=== PATIENT | female | born 1955 | race Caucasian/White ===

== ENCOUNTER → 2024-01-07 | Outpatient (CLI) | payer MEDICARE ==
--- NOTE | 2024-01-07 14:45 | CT ---
EXAMINATION TYPE: CT left knee - [facility] Protocol DATE OF EXAM: 01/07/2024 COMPARISON: None HISTORY: left [facility] knee CT DLP: 536 mGycm Automated exposure control for dose reduction was used. Contrast: None Technique: [facility] presurgical planning of the left knee. Images were obtained in the axial plane at 2 m m thick sections through the hip and ankle and 1 mm thick sections through the knee. Reconstructed im ages in the coronal and sagittal plane are reviewed. FINDINGS: Hip: Femoral head articulates with the acetabulum. There is some mild diffuse joint space narrowing p resent. Note is made of right hip joint space narrowing. No acute fractures are evident. Knee: Medial lateral tibial plateau and femoral condylar spurring is present. There is loss the media l compartment joint space. No joint effusion is evident. Ankle: Ankle mortise is intact. No acute fractures evident. IMPRESSION: 1. CT for [facility] knee presurgical planning.
== END | disposition home or self-care (01) ==
LOC: RADCTMAIN 13:36
PROVIDERS: ATTEND Orthopaedic Surgery
DX: Z01.818 Encounter for other preprocedural examination (principal); M17.12 Unilateral primary osteoarthritis, left knee; M21.162 Varus deformity, not elsewhere classified, left knee; F17.200 Nicotine dependence, unspecified, uncomplicated

== ENCOUNTER 2024-01-25 14:40 | Inpatient (IN) | payer MEDICARE ==
--- NOTE | 2024-01-25 16:17 | ED ---
General Adult HPI - General Chief complaint: Dizziness Stated complaint: Dizziness Time Seen by Provider: 01/25/24 15:15 Source: patient, family, RN notes reviewed Mode of arrival: EMS Limitations: no limitations - History of Present Illness Initial comments: Patient is a pleasant 68-year-old female presenting to the emergency department with concerns for dizziness. Onset of symptoms was 3 to 4 days ago. Patient has dizziness described as a spinning sensation. Patient states this is only when she gets up. Patient does not have symptoms when she lies down. Patient at one point had minimal associated nausea. No history of similar symptoms prev iously - Related Data Home Medications Medication Instructions Recorded Confirmed Aspirin EC [Ecotrin Low Dose] 81 mg PO DAILY 01/25/24 01/25/24 Atorvastatin [Lipitor] 40 mg PO DAILY 01/25/24 01/25/24 lisinopriL [Prinivil] 10 mg PO DAILY 01/25/24 01/25/24 Allergies Allergy/AdvReac Type Severity Reaction Status Date / Time No Known Allergies Allergy Verified 01/25/24 14:53 Review of Systems ROS Statement: Those systems with pertinent positive or pertinent negative responses have been documented in the HPI. ROS Other: All systems not noted in ROS Statement are negative. Constitutional: Denies: fever Eyes: Denies: eye pain ENT: Denies: ear pain Respiratory: Denies: cough, dyspnea Cardiovascular: Denies: chest pain Endocrine: Denies: fatigue Gastrointestinal: Denies: abdominal pain Musculoskeletal: Denies: back pain Neurological: Reports: vertigo. Denies: headache, weakness, numbness, paresthesias, confusion Past Medical History Past Medical History: Hyperlipidemia, Hypertension Additional Past Surgical History / Comment(s): left knee replacement Past Psychological History: No Psychological Hx Reported Smoking Status: Former smoker Past Alcohol Use History: None Reported Past Drug Use History: None Reported General Exam Limitations: no limitations General appearance: alert, in no apparent distress Head exam: Present: normocephalic Eye exam: Present: normal appearance, PERRL, EOMI ENT exam: Present: normal oropharynx Neck exam: Present: normal inspection Respiratory exam: Present: normal lung sounds bilaterally Cardiovascular Exam: Present: regular rate, normal rhythm GI/Abdominal exam: Present: soft. Absent: tenderness Extremities exam: Present: normal inspection, other (Bandage anterior knee from r recent surgery). Absent: pedal edema, calf tenderness Neurological exam: Present: alert, oriented X3, CN II-XII intact. 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 sent in by a medical professional or institution ([facility], SENIOR LEAD JAVA DEVELOPER, urgent care, hospital, or correction...) When possible be specific @ -No Did you speak to anyone other than the patient for history (EMS, parent, family, police, friend...)? What history was obtained from this source @ -Daughter is present and helps provide history including when procedure was done Did you review nursing and triage notes (agree or disagree)? Why? @ -I reviewed and agree with nursing and triage notes Were old charts reviewed (outside hosp., previous admission, EMS record, old EKG, old radiological studies, urgent care reports/EKG's, correction records)? Report findings @ -No old charts were reviewed Differential Diagnosis (chest pain, altered mental status, abdominal pain women, abdominal pain men, vaginal bleeding, weakness, fever, dyspnea, syncope, headache, dizziness, GI bleed, back pain, seizure, CVA, palpatations, mental health, musculoskeletal)? @ -Differential Dizziness: Benign paroxysmal positional Vertigo, Menieres disease, otitis media, acoustic neuroma, vertebrobasilar insufficiency, cerebellar stroke, encephalitis, hypovolemic, arrhythmia, coronary artery syndrome, anemia, this is not meant to be an all-inclusive list EKG interpreted by me (3pts min.). @ -As above X-rays interpreted by me (1pt min.). @ -None done CT interpreted by me (1pt min.). @ -CT scan of the brain does not reveal acute intracranial abnormality U/S interpreted by me (1pt. min.). @ -None done What testing was considered but not performed or refused? (CT, X-rays, U/S, labs)? Why? @ -Chest x-ray and blood cultures and urinalysis ordered What meds were considered but not given or refused? Why? @ -None Did you discuss the management of the patient with other professionals (professionals i.e. , PA, SENIOR LEAD JAVA DEVELOPER, lab, RT, psych nurse, outreach and education social worker, clean room technician, teacher, security control room officer, showcase maker)? Give summary @ -Case was discussed in detail with Dr. Hilario who will admit covering hospital call. Was smoking cessation discussed for >3mins.? @ -No Was critical care preformed (if so, how long)? @ -31 minutes critical care time Were there social determinants of health that impacted care today? How? (Homelessness, low income, unemployed, alcoholism, drug addiction, transportation, low edu. Level, literacy, decrease access to med. care, alf, rehab)? @ -No Was there de-escalation of care discussed even if they declined (Discuss DNR or withdrawal of care, Hospice)? DNR status @ -No What co-morbidities impacted this encounter? (DM, HTN, Smoking, COPD, CAD, Cancer, CVA, ARF, Chemo, Hep., AIDS, mental health diagnosis, sleep apnea, morbid obesity)? @ -None Was patient admitted / discharged? Hospital course, mention meds given and route, prescriptions, significant lab abnormalities, going to OR and other pertinent info. @ -Patient reevaluated and feeling somewhat better. Patient presents clinically with routine vertigo symptoms. Patient has no known history of significant previous disease. Patient appears to have acute kidney injury. Leukocytosis unclear etiology. There is concern for possible sepsis diagnosed at 1831. Blood culture lactic acid and IV antibiotics have all been ordered. Chest x-ray will be added. Renal ultrasound will be added. Consult will be pl aced with nephrology and cardiology Undiagnosed new problem with uncertain prognosis? @ -No Drug Therapy requiring intensive monitoring for toxicity (Heparin, Nitro, Insulin, Cardizem)? @ -No Were any procedures done? @ -No Diagnosis/symptom? @ -Dizziness, acute kidney injury, leukocytosis Acute, or Chronic, or Acute on Chronic? @ -Acute, acute, acute Uncomplicated (without systemic symptoms) or Complicated (systemic symptoms)? @ -Default Side effects of treatment? @ -No Exacerbation, Progression, or Severe Exacerbation? @ -No Poses a threat to life or bodily function? How? (Chest pain, [place], [place], pneumonia, PE, COPD, DKA, ARF, appy, cholecystitis, CVA, Diverticulitis, Homicidal, Suici lois, threat to staff... and all critical care pts) @ -Potential threat to renal function and cardiac function among others. - Lab Data Result diagrams: 01/25/24 16:32 01/25/24 16:32 Lab Results 01/25/24 01/25/24 01/25/24 Range/Units 16:32 16:32 16:32 WBC 47.4 H (3.8-10.6) k/uL RBC 3.51 L (3.80-5.40) m/uL Hgb 10.5 L (11.4-16.0) gm/dL Hct 33.5 L (34.0-46.0) % MCV 95.7 (80.0-100.0) fL MCH 29.9 (25.0-35.0) pg MCHC 31.3 (31.0-37.0) g/dL RDW 13.4 (11.5-15.5) % Plt Count 167 (150-450) k/uL MPV 8.7 Neutrophils % (Manual) 84 % Band Neuts % (Manual) 8 % Lymphocytes % (Manual) 4 % Monocytes % (Manual) 3 % Metamyelocytes % 2 % Myelocytes % 1 % Neutrophils # (Manual) 43.60 H (1.3-7.7) k/uL Lymphocytes # (Manual) 1.90 (1.0-4.8) k/uL Monocytes # (Manual) 1.42 H (0-1.0) k/uL Metamyelocytes # (Man) 0.95 H (0) k/uL Myelocytes # (Manual) 0.47 H (0) k/uL Nucleated RBCs 0 (0-0) /100 WBC Manual Slide Review Performed PT 10.9 (10.0-12.5) sec INR 1.0 (<1.2) APTT 28.8 (22.0-30.0) sec Sodium 133 L (137-145) mmol/L Potassium 3.7 (3.5-5.1) mmol/L Chloride 103 (98-107) mmol/L Carbon Dioxide 17 L (22-30) mmol/L Anion Gap 13 mmol/L BUN 56 H (7-17) mg/dL Creatinine 3.24 H (0.52-1.04) mg/dL Est GFR (CKD-EPI)AfAm 16 (>60 ml/min/1.73 sqM) Est GFR (CKD-EPI)NonAf 14 (>60 ml/min/1.73 sqM) Glucose 150 H (74-99) mg/dL Plasma Lactic Acid Endy (0.7-2.0) mmol/L Calcium 7.0 L (8.4-10.2) mg/dL Magnesium 1.7 (1.6-2.3) mg/dL Total Bilirubin 1.7 H (0.2-1.3) mg/dL AST 50 H (14-36) U/L ALT 54 H (4-34) U/L Alkaline Phosphatase 225 H (38-126) U/L Troponin I (0.000-0.034) ng/mL Total Protein 5.3 L (6.3-8.2) g/dL Albumin 2.7 L (3.5-5.0) g/dL 01/25/24 01/25/24 Range/Units 16:32 16:32 WBC (3.8-10.6) k/uL RBC (3.80-5.40) m/uL Hgb (11.4-16.0) gm/dL Hct (34.0-46.0) % MCV (80.0-100.0) fL MCH (25.0-35.0) pg MCHC (31.0-37.0) g/dL RDW (11.5-15.5) % Plt Count (150-450) k/uL MPV Neutrophils % (Manual) % Band Neuts % (Manual) % Lymphocytes % (Manual) % Monocytes % (Manual) % Metamyelocytes % % Myelocytes % % Neutrophils # (Manual) (1.3-7.7) k/uL Lymphocytes # (Manual) (1.0-4.8) k/uL Monocytes # (Manual) (0-1.0) k/uL Metamyelocytes # (Man) (0) k/uL Myelocytes # (Manual) (0) k/uL Nucleated RBCs (0-0) /100 WBC Manual Slide Review PT (10.0-12.5) sec INR (<1.2) APTT (22.0-30.0) sec Sodium (137-145) mmol/L Potassium (3.5-5.1) mmol/L Chloride (98-107) mmol/L Carbon Dioxide (22-30) mmol/L Anion Gap mmol/L BUN (7-17) mg/dL Creatinine (0.52-1.04) mg/dL Est GFR (CKD-EPI)AfAm (>60 ml/min/1.73 sqM) Est GFR (CKD-EPI)NonAf (>60 ml/min/1.73 sqM) Glucose (74-99) mg/dL Plasma Lactic Acid Endy 2.7 H* (0.7-2.0) mmol/L Calcium (8.4-10.2) mg/dL Magnesium (1.6-2.3) mg/dL Total Bilirubin (0.2-1.3) mg/dL AST (14-36) U/L ALT (4-34) U/L Alkaline Phosphatase (38-126) U/L Troponin I 0.252 H* (0.000-0.034) ng/mL Total Protein (6.3-8.2) g/dL Albumin (3.5-5.0) g/dL Critical Care Time Critical Care Time: Yes Disposition Clinical Impression: Acute kidney injury, Leukocytosis, Dizziness Disposition: ADMITTED IP TO THIS [facility] Condition: Serious Is patient prescribed a controlled substance at d/c from ED?: No Referrals: JimChucky durham DO [Primary Care Provider] - 1-2 days Time of Disposition: 18:32
[2024-01-25] MEDS: MECLIZINE 12.5 MG TAB PO STA (16:38)
[2024-01-25] MEDS: METOCLOPRAMIDE 5 MG/ML 2 ML VIAL IVP STA (16:38)
[2024-01-25 16:47] LABS: HCT 33.5 % (34.0-46.0); HGB 10.5 gm/dL (11.4-16.0); MCH 29.9 pg (25.0-35.0); MCHC 31.3 g/dL (31.0-37.0); MCV 95.7 fL (80.0-100.0); Mean Platelet Volume 8.7; Platelet Count 167 k/uL (150-450); RBC 3.51 m/uL (3.80-5.40); RDW 13.4 % (11.5-15.5); WBC 47.4 k/uL (3.8-10.6)
[2024-01-25 16:57] LABS: ALT 54 U/L (4-34); AST 50 U/L (14-36); African American GFR (CKD) 16 (>60 ml/min/1.73 sqM); Albumin 2.7 g/dL (3.5-5.0); Alkaline Phosphatase 225 U/L (38-126); Anion Gap 13 mmol/L; Blood Urea Nitrogen 56 mg/dL (7-17); Carbon Dioxide 17 mmol/L (22-30); Chloride 103 mmol/L (98-107); Glucose 150 mg/dL (74-99); Magnesium 1.7 mg/dL (1.6-2.3); Non-African American GFR(CKD) 14 (>60 ml/min/1.73 sqM); Potassium 3.7 mmol/L (3.5-5.1); Sodium 133 mmol/L (137-145); Total Bilirubin 1.7 mg/dL (0.2-1.3); Total Protein 5.3 g/dL (6.3-8.2)
[2024-01-25 17:01] LABS: Partial Thromboplastin Time 28.8 sec (22.0-30.0); Prothrombin Time 10.9 sec (10.0-12.5)
--- NOTE | 2024-01-25 17:20 | CT ---
EXAMINATION TYPE: CT brain wo con DATE OF EXAM: 01/25/2024 COMPARISON: None HISTORY: dizziness CT DLP: 1107 mGycm Automated exposure control for dose reduction was used. Findings: The ventricles, basal cisterns and sulci over the convexities are within normal limits and there is n o mass effect or shift of midline structures. No abnormal density is seen throughout the brain parenchyma and there is no acute intra or extra-axia l hemorrhage. The posterior fossa including the brainstem, fourth ventricle and cerebellar pontine angles appear no rmal. Intraorbital contents appear normal and symmetric. There are air-fluid levels in the bilateral maxillary sinuses consistent with acute sinusitis. Scattered inflammatory changes in the ethmoid air cells as well. There are chronic inflammatory rea es in the sphenoid sinus. The mastoid air cells are well aerated. The calvarium is intact. IMPRESSION: 1. No acute bleed or mass effect. 2. Acute sinusitis involving the maxillary sinuses
[2024-01-25 18:06] LABS: Band Neutrophils % 8 %; Metamyelocytes # (M) 0.95 k/uL (0); Metamyelocytes % 2 %; Monocytes # (M) 1.42 k/uL (0-1.0); Myelocytes # (M) 0.47 k/uL (0); Myelocytes % 1 %; Neutrophils % (M) 84 %; Nucleated Red Blood Cells 0 /100 WBC (0-0); Total Cells Counted 200
[2024-01-25] MEDS ORDERED: NALOXONE 0.4 MG/ML 1 ML VIAL IV PRN (18:33)
[2024-01-25] MEDS: SODIUM CHLORIDE 0.9% 1,000 ML IV STA (18:44)
[2024-01-25] MEDS: SODIUM CHLORIDE 0.9% 1,000 ML IV SCH (18:45)
[2024-01-25] MEDS: ASPIRIN 81 MG PO SCH (18:47)
--- NOTE | 2024-01-26 03:17 | P.HPIM ---
History of Present Illness H&P Date: 01/25/24 Chief Complaint: Dizziness 68-year-old female with hypertension Patient coming in with 3 to 4-day history of positional dizziness, she would feel dizzy with room spinning every time she gets up otherwise if she is laying down or sitting down in the chair she would feel fine this has been progressive over the past couple days she adds that she has been feeling extra thirsty but has decreased p.o. intake. She reports that about 3 weeks ago she had left knee surgery, left total knee arthroplasty. But otherwise she denies any other medical issues she reports that she quit smoking 3 weeks ago denies any illicit drugs or heavy alcohol Overall patient seems to have poor insight over her overall medical conditions and is a very poor historian She has features suggestive of wasting or protein calorie malnutrition with hollow temples and guttering of the dorsum of her bilateral hands however she claims that she always looks like that since she was a little kept. She denies any head injury denies any falls denies any nausea vomiting denies any chest pain trouble breathing denies any abdominal pain denies any changes in bowel or urinary habit denies any GI bleeding denies any fevers or chills review of systems Pertinent positives as noted in HPI. All other systems were reviewed and are negative on exam Constitutional: No acute distress, Eyes: Anicteric sclerae, moist conjunctiva, Pupils equal round reactive to light ENMT: NC/AT Oropharynx clear, no erythema, or exudates Neck: Supple, no masses, or JVD No carotid bruits No thyromegaly Lungs: Clear to auscultation Clear to percussion Normal respiratory effort, no accessory muscle use Cardiovascular: Heart regular in rate and rhythm, No murmurs, gallops, or rubs No peripheral edema Abdominal: Soft Nontender, no guarding, rebound or rigidity Abdomen moving with respiration Normoactive bowel sounds Skin: Bilateral temporal wasting and scarring over dorsum of bilateral hands Extremities: No digital cyanosis No clubbing Pedal pulses intact and symmetrical Radial pulses intact and symmetrical No calf tenderness Psychiatric: Alert and oriented to person, place and time Appropriate affect fair judgement Neuro Muscles Strength 5/5 in all 4 extremities Sensation to light touch grossly present throughout Cranial nerves II-XII grossly intact Past Medical History Past Medical History: Hyperlipidemia, Hypertension Additional Past Surgical History / Comment(s): left knee replacement Past Psychological History: No Psychological Hx Reported Smoking Status: Former smoker Past Alcohol Use History: None Reported Past Drug Use History: None Reported Medications and Allergies Home Medications Medication Instructions Recorded Confirmed Type Aspirin EC [Ecotrin Low Dose] 81 mg PO DAILY 01/25/24 01/25/24 History Atorvastatin [Lipitor] 40 mg PO DAILY 01/25/24 01/25/24 History lisinopriL [Prinivil] 10 mg PO DAILY 01/25/24 01/25/24 History Allergies Allergy/AdvReac Type Severity Reaction Status Date / Time No Known Allergies Allergy Verified 01/25/24 14:53 Physical Exam Vitals: Vital Signs Temp Pulse Pulse Resp BP BP Pulse Ox 01/25/24 18:19 92 18 99/67 95 01/25/24 15:49 104 H 97/65 01/25/24 15:46 98 96/72 01/25/24 15:43 102 H 100/63 01/25/24 15:38 101 H 18 97/61 97 01/25/24 14:48 98.4 F 101 H 18 100/62 94 L Intake and Output 01/25/24 01/25/24 01/26/24 14:59 22:59 06:59 Other: Weight 60.781 kg Results CBC & Chem 7: 01/25/24 16:32 01/25/24 16:32 Labs: Abnormal Lab Results - Last 24 Hours (Table) 01/25/24 01/25/24 01/25/24 Range/Units 16:32 16:32 16:32 WBC 47.4 H (3.8-10.6) k/uL RBC 3.51 L (3.80-5.40) m/uL Hgb 10.5 L (11.4-16.0) gm/dL Hct 33.5 L (34.0-46.0) % Neutrophils # (Manual) 43.60 H (1.3-7.7) k/uL Monocytes # (Manual) 1.42 H (0-1.0) k/uL Metamyelocytes # (Man) 0.95 H (0) k/uL Myelocytes # (Manual) 0.47 H (0) k/uL Sodium 133 L (137-145) mmol/L Carbon Dioxide 17 L (22-30) mmol/L BUN 56 H (7-17) mg/dL Creatinine 3.24 H (0.52-1.04) mg/dL Glucose 150 H (74-99) mg/dL Plasma Lactic Acid Endy 2.7 H* (0.7-2.0) mmol/L Calcium 7.0 L (8.4-10.2) mg/dL Total Bilirubin 1.7 H (0.2-1.3) mg/dL AST 50 H (14-36) U/L ALT 54 H (4-34) U/L Alkaline Phosphatase 225 H (38-126) U/L Troponin I (0.000-0.034) ng/mL Total Protein 5.3 L (6.3-8.2) g/dL Albumin 2.7 L (3.5-5.0) g/dL 01/25/24 01/25/24 Range/Units 16:32 19:16 WBC (3.8-10.6) k/uL RBC (3.80-5.40) m/uL Hgb (11.4-16.0) gm/dL Hct (34.0-46.0) % Neutrophils # (Manual) (1.3-7.7) k/uL Monocytes # (Manual) (0-1.0) k/uL Metamyelocytes # (Man) (0) k/uL Myelocytes # (Manual) (0) k/uL Sodium (137-145) mmol/L Carbon Dioxide (22-30) mmol/L BUN (7-17) mg/dL Creatinine (0.52-1.04) mg/dL Glucose (74-99) mg/dL Plasma Lactic Acid Endy (0.7-2.0) mmol/L Calcium (8.4-10.2) mg/dL Total Bilirubin (0.2-1.3) mg/dL AST (14-36) U/L ALT (4-34) U/L Alkaline Phosphatase (38-126) U/L Troponin I 0.252 H* 0.233 H* (0.000-0.034) ng/mL Total Protein (6.3-8.2) g/dL Albumin (3.5-5.0) g/dL Assessment and Plan Assessment: 68-year-old female with hypertension coming in due to postural dizziness reports no other associated symptoms she also admits to decreased p.o. intake I discussed case with ED doctor and accepted the admission for dehydration, acute kidney injury, positional dizziness and leukocytosis to rule out underlying malignancy versus infectious process with anticipated length of stay less than 2 midnights Postural dizziness Orthostatic vital signs IV fluid hydration with normal saline 100 cc/h 2 L bolus normal saline Fall precautions Brain CT no acute intracranial pathology EKG normal sinus rhythm Significant leukocytosis No identifiable source of infection Chest x-ray no acute cardiopulmonary process Check urine analysis Patient was given Rocephin in the ED Follow-up blood cultures Lactic acidosis 2.7 upon follow-up 1.5 Hematology consult rule out leukemia Acute kidney injury most likely secondary to prerenal ATN Avoid nephrotoxic meds Hold lisinopril Sodium 133 potassium 3.7 BUN 56 creatinine 3.24 Nephrology consult Monitor urine output Aggressive IV fluid hydration as suggested above Elevated liver enzymes Check abdominal ultrasound Bilirubin 1.7 AST 50 ALT 54 Alk phos 225 Hold statin Elevated troponin 0.252 follow-up 0.233 Follow-up cardiology recommendations Patient denies any chest pain Continue with aspirin 81 mg p.o. daily Full code DVT prophylaxis heparin subcu 3 times daily
[2024-01-26 03:26] LABS: HCT 31.4 % (34.0-46.0); HGB 10.5 gm/dL (11.4-16.0); MCH 30.9 pg (25.0-35.0); MCHC 33.5 g/dL (31.0-37.0); MCV 92.2 fL (80.0-100.0); Mean Platelet Volume 9.3; Platelet Count 155 k/uL (150-450); RDW 13.7 % (11.5-15.5); WBC 42.1 k/uL (3.8-10.6)
[2024-01-26 03:52] LABS: ALT 50 U/L (4-34); AST 45 U/L (14-36); African American GFR (CKD) 15 (>60 ml/min/1.73 sqM); Albumin 2.6 g/dL (3.5-5.0); Alkaline Phosphatase 198 U/L (38-126); Amylase 43 U/L (30-110); Anion Gap 12 mmol/L; Blood Urea Nitrogen 63 mg/dL (7-17); Calcium 6.7 mg/dL (8.4-10.2); Carbon Dioxide 17 mmol/L (22-30); Chloride 106 mmol/L (98-107); Glucose 89 mg/dL (74-99); Lipase 61 U/L (23-300); Magnesium 1.9 mg/dL (1.6-2.3); Non-African American GFR(CKD) 13 (>60 ml/min/1.73 sqM); Potassium 3.6 mmol/L (3.5-5.1); Sodium 135 mmol/L (137-145); Total Protein 5.2 g/dL (6.3-8.2)
[2024-01-26 04:13] LABS: Band Neutrophils % 38 %; Eosinophils # (M) 0.42 k/uL (0-0.7); Lymphocytes # (M) 0.84 k/uL (1.0-4.8); Metamyelocytes # (M) 0.84 k/uL (0); Metamyelocytes % 2 %; Monocytes # (M) 0.42 k/uL (0-1.0); Neutrophils % (M) 56 %; Nucleated Red Blood Cells 0 /100 WBC (0-0); Total Cells Counted 200
[2024-01-26 04:14] LABS: Toxic Granulation Present
[2024-01-26] MEDS: SODIUM CHLORIDE 0.9% 2,000 ML IV ONE (05:12)
[2024-01-26] MEDS: LORazepam 2 MG/ML INJ IV STA (05:26)
--- NOTE | 2024-01-26 06:57 | US ---
EXAMINATION TYPE: US kidneys/renal and bladder DATE OF EXAM: 01/25/2024 COMPARISON: NONE CLINICAL INDICATION: Female, 68 years old with history of sary; Abnormal labs. Patient states she jus t voided. EXAM MEASUREMENTS: Right Kidney: 10.5 x 5.9 x 5.7 cm Left Kidney: 10.0 x 5.5 x 5.7 cm Right Kidney: Moderate hydronephrosis with trace debris suggested. Left Kidney: Mild to moderate hydronephrosis. Cystic lesions seen with largest lower lateral = 1.6 x 1.3 x 1.1 cm No definite shadowing renal calculi are identified. Bladder: Not well visualized, nondistended IMPRESSION: 1. Moderate right hydronephrosis with trace debris suggested. 2. Mild to moderate left hydronephrosis. 3. Left renal cysts, largest 1.6 cm. 4. Bladder not well visualized, nondistended.
--- NOTE | 2024-01-26 07:02 | XR ---
EXAMINATION TYPE: XR chest 2V DATE OF EXAM: 01/25/2024 7:34 PM CLINICAL INDICATION:Female, 68 years old with history of Leukocytosis; [facility] COMPARISON: None TECHNIQUE: XR chest 2V. Frontal and lateral views of the chest.. FINDINGS: Lines/Tubes/Devices: EKG leads and other extrinsic densities overlie the chest. No indwelling lines are seen. Heart/mediastinum: Heart appears enlarged. Aorta appears partially calcified and mildly tortuous. Pulmonary vascularity: Central vascular congestion with engorgement of the vasculature and indistinct ness of the vessels suggesting pulmonary edema. Lungs/Pleura: No focal consolidation or pneumothorax. Small pleural effusions may be present. Musculoskeletal: No acute osseous abnormality demonstrated in the limits of the exam. Other findings: None. IMPRESSION: Cardiomegaly with congestion and edema, possible small pleural effusions. Correlate clinically for mo derate CHF.
[2024-01-26] MEDS: HEPARIN SODIUM,PORCINE 5,000 UNIT/ML 1 ML VIAL SQ SCH (08:30)
--- NOTE | 2024-01-26 09:48 | P.CRDCN ---
History of Present Illness History of present illness: HISTORY OF PRESENT ILLNESS: This is a 68-year-old female with a past medical history significant for hypertension and hyperlipidemia. Patient follows in the office with Dr. Tate. We have been asked to see the patient in consultation for elevated troponins. Patient examined at the bedside in the emergency room. Patient states she presented to the hospital with a chief complaint of dizziness. Patient states that she felt like her room was spinning. She states that she was so dizzy she was unable to get out of bed. Patient denies having any chest pain or pressure. She denies any shortness of breath. Patient was found to have significant leukocytosis with a white count in the 40s. Patient denies any history of cancer. Patient was also found to be in acute renal failure with a creatinine of 2.34. DIAGNOSTICS: - EKG reveals sinus mechanism with no signs of acute ischemia - Chest xray cardiomegaly with congestion and edema, possible small pleural effusions. Correlate clinically for moderate CHF Ultrasound kidneys and bladder: Moderate right hydronephrosis with trace debris suggested, mild to moderate left hydronephrosis, left renal cyst largest 1.6 cm and bladder not well-visualized nondistended. CT brain: Negative for acute bleed or mass effect. Acute sinusitis involving the maxillary sinuses. - Laboratory data: WBC 42.5. Hemoglobin 10.5. Platelet count 155. Sodium 135. Potassium 3.6. BUN 63. Creatinine 3.47. Lactic acid 2.7. Bilirubin 1.0. AST 45. ALT 50. Alkaline phosphatase 198. Troponin 0.252. 0.233. 0.161. - Current home cardiac medications include lisinopril 10 mg daily, atorvastatin 40 mg daily, and aspirin 81 mg daily. -Patient underwent Lexiscan stress test in the office on 12/28/2023 which was negative for ischemia. LV function with ejection fraction estimated at 62%. REVIEW OF SYSTEMS: At the time of my exam: CONSTITUTIONAL: Denies fever or chills. HEENT: Denies blurred vision, vision changes, or eye pain. Denies hemoptysis CARDIOVASCULAR: Denies chest pain. Denies orthopnea. Denies PND. Denies palpitations RESPIRATORY: Denies shortness of breath. GASTROINTESTINAL: Denies abdominal pain. Denies nausea or vomiting. HEMATOLOGIC: Denies bleeding disorders. GENITOURINARY: Denies any blood in urine. SKIN: Denies pruitis. Denies rash. PHYSICAL EXAM: VITAL SIGNS: Reviewed. GENERAL: Well-developed in no acute distress. HEENT: Head is normocephalic. Pupils are equal, round. Sclerae anicteric. Mucous membranes of the mouth are moist. Neck supple. No JVD or thyromegaly LUNGS: Respirations even and unlabored. Lungs essentially clear to auscultation bilaterally. HEART: Regular rate and rhythm. S1 and S2 heard. ABDOMEN: Soft. Nondistended. Nontender. EXTREMITIES: Normal range of motion. No clubbing or cyanosis. Peripheral pulses intact. Trace bilateral lower extremity edema NEUROLOGIC: Awake and alert. Oriented x 3. ASSESSMENT: Dizziness Acute renal failure Abnormal troponins, flat, not suggestive of acute coronary syndrome, likely secondary to acute renal failure Significant leukocytosis, rule out underlying malignancy Minimally elevated LFTs Moderate right hydronephrosis Mild to moderate left hydronephrosis Left renal cyst, largest 1.6 cm Hypertension Hyperlipidemia Former nicotine dependence PLAN: An acute coronary event has been ruled out Resume aspirin Resume Lipitor. Patient with very minimally elevated LFTs. Continue to monitor and discontinue statin therapy if LFTs worsen. Hold lisinopril secondary to acute renal failure Obtain 2D echo to assess cardiac structure and function Hematology has been consulted for significant leukocytosis Nephrology has been consulted for acute renal failure Further recommendations pending patient course Nurse practitioner note has been reviewed by physician. Signing provider agrees with the documented findings, assessment, and plan of care documented by G[employer] WE[employer] DRILLING MANAGER as a scribe. Past Medical History Past Medical History: Hyperlipidemia, Hypertension Additional Past Surgical History / Comment(s): left knee replacement Past Psychological History: No Psychological Hx Reported Smoking Status: Former smoker Past Alcohol Use History: None Reported Past Drug Use History: None Reported Medications and Allergies Home Medications Medication Instructions Recorded Confirmed Type Aspirin EC [Ecotrin Low Dose] 81 mg PO DAILY 01/25/24 01/25/24 History Atorvastatin [Lipitor] 40 mg PO DAILY 01/25/24 01/25/24 History lisinopriL [Prinivil] 10 mg PO DAILY 01/25/24 01/25/24 History Allergies Allergy/AdvReac Type Severity Reaction Status Date / Time No Known Allergies Allergy Verified 01/25/24 14:53 Physical Exam Vitals: Vital Signs Temp Pulse Pulse Resp BP BP Pulse Ox 01/26/24 06:26 112 H 18 107/69 97 01/26/24 05:14 140 H 30 H 99 01/26/24 04:56 97.8 F 105 H 18 123/77 99 01/26/24 03:30 75 16 117/75 96 01/26/24 01:30 90 18 118/71 96 01/25/24 18:19 92 18 99/67 95 01/25/24 15:49 104 H 97/65 01/25/24 15:46 98 96/72 01/25/24 15:43 102 H 100/63 01/25/24 15:38 101 H 18 97/61 97 01/25/24 14:48 98.4 F 101 H 18 100/62 94 L Results 01/26/24 03:06 01/26/24 03:06 Cardiac Enzymes 01/25/24 01/25/24 01/25/24 Range/Units 16:32 16:32 19:16 AST 50 H (14-36) U/L Troponin I 0.252 H* 0.233 H* (0.000-0.034) ng/mL 01/26/24 01/26/24 Range/Units 03:06 03:06 AST 45 H (14-36) U/L Troponin I 0.161 H* (0.000-0.034) ng/mL Coagulation 01/25/24 Range/Units 16:32 PT 10.9 (10.0-12.5) sec APTT 28.8 (22.0-30.0) sec CBC 01/25/24 01/26/24 Range/Units 16:32 03:06 WBC 47.4 H 42.1 H (3.8-10.6) k/uL RBC 3.51 L 3.40 L (3.80-5.40) m/uL Hgb 10.5 L 10.5 L (11.4-16.0) gm/dL Hct 33.5 L 31.4 L (34.0-46.0) % Plt Count 167 155 (150-450) k/uL Comprehensive Metabolic Panel 01/25/24 01/26/24 Range/Units 16:32 03:06 Sodium 133 L 135 L (137-145) mmol/L Potassium 3.7 3.6 (3.5-5.1) mmol/L Chloride 103 106 (98-107) mmol/L Carbon Dioxide 17 L 17 L (22-30) mmol/L BUN 56 H 63 H (7-17) mg/dL Creatinine 3.24 H 3.47 H (0.52-1.04) mg/dL Glucose 150 H 89 (74-99) mg/dL Calcium 7.0 L 6.7 L (8.4-10.2) mg/dL AST 50 H 45 H (14-36) U/L ALT 54 H 50 H (4-34) U/L Alkaline Phosphatase 225 H 198 H (38-126) U/L Total Protein 5.3 L 5.2 L (6.3-8.2) g/dL Albumin 2.7 L 2.6 L (3.5-5.0) g/dL Current Medications Generic Name Dose Route Start Last Admin Trade Name Freq PRN Reason Stop Dose Admin Aspirin 81 mg 01/25/24 18:45 01/25/24 18:47 Aspirin 81 Mg PO 81 mg DAILY [facility] Administration Heparin Sodium (Porcine) 5,000 unit 01/26/24 08:00 Heparin Sodium,Porcine 5,000 Unit/Ml 1 Ml Vial SQ Q8HR TAMMIE Ceftriaxone Sodium 2 gm/ 50 mls @ 100 mls/hr 01/26/24 09:00 Sodium Chloride IVPB Q24HR [facility] Protocol Sodium Chloride 1,000 mls @ 75 mls/hr 01/25/24 18:45 01/25/24 18:45 Saline 0.9% IV Not Given .[id number] TAMMIE Naloxone HCl 0.2 mg 01/25/24 18:33 Naloxone 0.4 Mg/Ml 1 Ml Vial IV Q2M PRN Opioid Reversal 01/26/24 03:06 01/26/24 03:06
[2024-01-26] MEDS: ACETAMINOPHEN TAB 325 MG TAB PO PRN (10:19)
[2024-01-26] MEDS ORDERED: IOPAMIDOL CONTRAST (ORAL USE) VIAL PO PRN (10:51)
--- NOTE | 2024-01-26 11:06 | US ---
EXAMINATION TYPE: US gallbladder DATE OF EXAM: 01/26/2024 COMPARISON: 01/25/2024 CLINICAL INDICATION: Female, 68 years old with history of transaminitis, add liver; transaminitis TECHNIQUE: Multiple sonographic images of the right upper quadrant are obtained. FINDINGS: EXAM MEASUREMENTS: Liver Length: 14.8 cm Gallbladder Wall: 0.2 cm CBD: 0.4 cm Right Kidney: 10.9 x 5.8 x 5.5 cm PEANUT CLEANER NOTES:*Limitations due to overlying bowel gas Pancreas: wnl Liver: visualized portions appear wnl Gallbladder: no evidence of stones Evidence for sonographic Alexander's sign: no CBD: wnl Right Kidney: moderate hydronephrosis with possible debris as on prior exam IMPRESSION: 1. Ongoing moderate right hydronephrosis. Some debris or other filling defect within one of the minor calyces redemonstrated. 2. No gallstones or biliary ductal dilatation.
--- NOTE | 2024-01-26 11:42 | CA ---
Transthoracic Echo Report Name: Anel Dutton Age: 68 Gender: F : 1955 Exam Date: 01/26/2024 10:00 Exam Location: [facility] [place] [facility] Ht (in): 60 Wt (lb): 134 Ordering Physician: Marvin Mcmullen DO Attending/Referring Phys: Automation Technologist Destiny Aguillon RDCS Procedure CPT: Indications: elevated troponin Cardiac Hx: Technical Quality: Good Contrast 1: Total Dose (mL): Contrast 2: Total Dose (mL): MEASUREMENTS (Male / Female) Normal Values 2D ECHO LV Diastolic Diameter PLAX 4.2 cm 4.2 - 5.9 / 3.9 - 5.3 cm LV Systolic Diameter PLAX 2.8 cm IVS Diastolic Thickness 1.2 cm 0.6 - 1.0 / 0.6 - 0.9 cm LVPW Diastolic Thickness 1.3 cm 0.6 - 1.0 / 0.6 - 0.9 cm LV Relative Wall Thickness 0.6 RV Internal Dim ED PLAX 2.7 cm LVOT Diameter 2.0 cm LA Volume 41.5 cm??? 18 - 58 / 22 - 52 cm??? LA Volume Index 25.6 cm???/m??? 16 - 28 cm???/m??? DOPPLER AV Peak Velocity 159.0 cm/s AV Peak Gradient 10.1 mmHg AV Mean Velocity 107.5 cm/s AV Mean Gradient 5.3 mmHg AV Velocity Time Integral 23.5 cm LVOT Peak Velocity 118.8 cm/s LVOT Peak Gradient 5.6 mmHg LVOT Velocity Time Integral 17.9 cm LVOT Stroke Volume 54.1 cm??? LVOT Stroke Volume Index 34.4 ml/m??? LVOT Cardiac Index 3339.2 cm???/min???m??? AV Area Cont Eq vti 2.3 cm??? AV Area Cont Eq pk 2.3 cm??? MV Area PHT 6.9 cm??? Mitral E Point Velocity 92.9 cm/s Mitral A Point Velocity 107.6 cm/s Mitral E to A Ratio 0.9 MV Deceleration Time 109.5 ms PV Peak Velocity 76.5 cm/s PV Peak Gradient 2.3 mmHg FINDINGS Left Ventricle Left ventricular ejection fraction is estimated at 60-65 %. Mildly increased septal wall thickness. Moderately increased posterior wall thickness. Left ventricular cavity size normal. No obvious regional wall motion abnormalities. Right Ventricle Normal right ventricular size and function. Unable to estimate the right ventricular systolic pressure. Right Atrium Normal right atrial size. Left Atrium Normal left atrial size. Mitral Valve Mitral valve thickened. No evidence for mitral valve prolapse. No mitral stenosis. Trace mitral regurgitation. Aortic Valve Trileaflet aortic valve. No aortic valve stenosis. Trace aortic regurgitation. Tricuspid Valve Structurally normal tricuspid valve. No tricuspid stenosis. Trace tricuspid regurgitation. Pulmonic Valve Structurally normal pulmonic valve. No pulmonic stenosis. Trace pulmonic regurgitation. Pericardium No pericardial effusion. Aorta Normal size aortic root and proximal ascending aorta. CONCLUSIONS Normal LV function Previewed by: Dr. Dewey Tate MD (Electronically Signed) Final Date: 26 January 2024 11:41
--- NOTE | 2024-01-26 12:37 | P.PN ---
Subjective Progress Note Date: 01/26/24 68 year old F with PMH of hypertension presents to the ED for postural lightheadedness. She reports poor appetite and watery diarrhea for the past week. She reports nausea but no vomiting. She reports a dry cough. She underwent left total knee arthropasty 3 weeks ago and recovery has been going well. She reports 15 year PPD smoking history, recently quit 3 weeks ago. In the ED she underwent extensive evaluation. BP 100/62 HR 101 RR 18 T 98.4F 94% on RA. CBC, CMP, Coag panel done significant for WBC 47.4 Hg 10.5 Hct 33.5, Na 133, bicarb 17, BUN 56, Cr 3.24, glu 150, Ca 7.0, T. Bili 1.7, AST 50, ALT 54, alk phos 225, total protein 5.3, alb 2.7. Lactic acid 2.7. Mag 1.7. EKG sinus rhythm with no ST elevation. Brain CT no acute bleed or mass effect, acute sinusitis. Patient was given 2L NS bolus and admitted for treatment of dehydration, LUCA and workup of leukocytosis. 01/25 Patient was seen and examined. She continues to experience watery diarrhea that has been ongoing for the past week. She got pre and post operative antibotics during her knee arthroplasty but non since then. She reports a dry cough. She reports a history of bladder prolapse. Tmax 101F. She is tachycardic with HR in the 90-100s. Renal US moderate right and mild-mod left hydronephrosis with left renal cysts. CXR done this morning shows cardiomegaly with pulmonary vascular congestion. Cardiology consulted, ACS ruled out, troponin elevation due to aute renal failure, hold Lisinopril, obtain Echo, resume ASA and Lipitor. Echocardiogram shows EF 60-65% with moderate posterior wall thickness, trace MR/AR/TR/WV. GB US shows no gallstones of ductal dilatation. CBC WBC 42.1, Hg 10.5, Hct 31.4. CMP Na 135, bicarb 17, BUN 63, 3.27, Ca 6.7, AST 45, ALT 50, alk phos 198, total protein 5.2, alb 2.6. General: non toxic, no distress, appears at stated age Derm: warm, dry Head: atraumatic, normocephalic, symmetric Eyes: EOMI, no lid lag, anicteric sclera Mouth: no lip lesion, mucus membranes moist Cardiovascular: S1S2 tachy, no murmur Lungs: Clear to auscultation BS bilateral, no rhonchi, no rales , no accessory muscle use Ext: no gross muscle atrophy, trace bilateral lower extremity edema, no contractures Neuro: no focal neuro deficits Psych: Alert, oriented, appropriate affect Based on my assessment of this patient, this patient meets a high complexity level of care. Sepsis unknown etiology: Patient meets sepsis criteria with leukocytosis, tachycardia, fever. Reports significant diarrhea. Currently on Rocephin 2g IV QD. Check COVID, RSV, Flu. CT AP ordered with oral contrast. Check C. difficle. Check UA with reflux to UCx. BCx ordered. Telemetry monitoring. NS at 75 cc/hr. Postural lightheadedness: Likely due to severe dehydration. Check Orthostats. Echo as above. IV hydration as above. Fall precautions. PT and OT consult. Acute kidney injury: Renal US shows hydronephrosis. Hold Lisinopril. Insert Guzman catheter. IV hydration as above. Consult urology. Consult nephrology. Metabolic acidosis: Lactic acid initially elevated. Due to LUCA. IV hydration as above. Significant leukocytosis: Concerns for malignancy. Oncology consulted. Transaminitis: GB US negative for gallstone of biliary duct dilation. Lipitor restarted by Cardiology. Check acute hep panel. Troponin elevation: Flat. Likely due to renal dysfunction. Echo as above. ASA 81 mg PO QD. Lipitor 40 mg PO QD. Cardiology on board. Normocytic anemia: Iron studies, B12, Folate ordered. Resolved: Lactic acidosis CODE STATUS: FULL CODE DVT Prophylaxis: Lovenox GI Prophylaxis: Designated medical POA if patient is not able to make medical decisions for themselves: I have reviewed the following workers compensation consultant notes: Cardiology note. I have reviewed the results of the following tests: CBC. CMP. GB US. Renal US. Echo. CXR. I have ordered the following tests: Acute hep panel. CT AP. C. difficile. COVID, RSV, Flu. UA with UCx. BCx. I have discussed the care of this patient with the following independent historian: LAURI. I have independently interpreted the following test below: I have discussed the management of this patient with the following physician: Objective - Vital Signs Vital signs: Vital Signs Temp 98.3 F 01/26/24 11:50 Pulse 95 01/26/24 11:50 Resp 16 01/26/24 11:50 BP 129/85 01/26/24 11:50 Pulse Ox 95 01/26/24 11:50 FiO2 Intake & Output 01/25/24 01/26/24 01/26/24 18:59 06:59 18:59 Weight 60.781 kg - Labs CBC & Chem 7: 01/26/24 03:06 01/26/24 03:06 Labs: Abnormal Lab Results - Last 24 Hours (Table) 01/25/24 01/25/24 01/25/24 Range/Units 16:32 16:32 16:32 WBC 47.4 H (3.8-10.6) k/uL RBC 3.51 L (3.80-5.40) m/uL Hgb 10.5 L (11.4-16.0) gm/dL Hct 33.5 L (34.0-46.0) % Neutrophils # (Manual) 43.60 H (1.3-7.7) k/uL Lymphocytes # (Manual) (1.0-4.8) k/uL Monocytes # (Manual) 1.42 H (0-1.0) k/uL Metamyelocytes # (Man) 0.95 H (0) k/uL Myelocytes # (Manual) 0.47 H (0) k/uL Sodium 133 L (137-145) mmol/L Carbon Dioxide 17 L (22-30) mmol/L BUN 56 H (7-17) mg/dL Creatinine 3.24 H (0.52-1.04) mg/dL Glucose 150 H (74-99) mg/dL Plasma Lactic Acid Endy 2.7 H* (0.7-2.0) mmol/L Calcium 7.0 L (8.4-10.2) mg/dL Total Bilirubin 1.7 H (0.2-1.3) mg/dL AST 50 H (14-36) U/L ALT 54 H (4-34) U/L Alkaline Phosphatase 225 H (38-126) U/L Troponin I (0.000-0.034) ng/mL Total Protein 5.3 L (6.3-8.2) g/dL Albumin 2.7 L (3.5-5.0) g/dL 01/25/24 01/25/24 01/26/24 Range/Units 16:32 19:16 03:06 WBC (3.8-10.6) k/uL RBC (3.80-5.40) m/uL Hgb (11.4-16.0) gm/dL Hct (34.0-46.0) % Neutrophils # (Manual) (1.3-7.7) k/uL Lymphocytes # (Manual) (1.0-4.8) k/uL Monocytes # (Manual) (0-1.0) k/uL Metamyelocytes # (Man) (0) k/uL Myelocytes # (Manual) (0) k/uL Sodium (137-145) mmol/L Carbon Dioxide (22-30) mmol/L BUN (7-17) mg/dL Creatinine (0.52-1.04) mg/dL Glucose (74-99) mg/dL Plasma Lactic Acid Endy (0.7-2.0) mmol/L Calcium (8.4-10.2) mg/dL Total Bilirubin (0.2-1.3) mg/dL AST (14-36) U/L ALT (4-34) U/L Alkaline Phosphatase (38-126) U/L Troponin I 0.252 H* 0.233 H* 0.161 H* (0.000-0.034) ng/mL Total Protein (6.3-8.2) g/dL Albumin (3.5-5.0) g/dL 01/26/24 01/26/24 Range/Units 03:06 03:06 WBC 42.1 H (3.8-10.6) k/uL RBC 3.40 L (3.80-5.40) m/uL Hgb 10.5 L (11.4-16.0) gm/dL Hct 31.4 L (34.0-46.0) % Neutrophils # (Manual) 39.50 H (1.3-7.7) k/uL Lymphocytes # (Manual) 0.84 L (1.0-4.8) k/uL Monocytes # (Manual) (0-1.0) k/uL Metamyelocytes # (Man) 0.84 H (0) k/uL Myelocytes # (Manual) (0) k/uL Sodium 135 L (137-145) mmol/L Carbon Dioxide 17 L (22-30) mmol/L BUN 63 H (7-17) mg/dL Creatinine 3.47 H (0.52-1.04) mg/dL Glucose (74-99) mg/dL Plasma Lactic Acid Endy (0.7-2.0) mmol/L Calcium 6.7 L (8.4-10.2) mg/dL Total Bilirubin (0.2-1.3) mg/dL AST 45 H (14-36) U/L ALT 50 H (4-34) U/L Alkaline Phosphatase 198 H (38-126) U/L Troponin I (0.000-0.034) ng/mL Total Protein 5.2 L (6.3-8.2) g/dL Albumin 2.6 L (3.5-5.0) g/dL
[2024-01-26 13:36] LABS: Appearance,Urine Turbid (Clear); Bacteria,Urine Many /hpf; Bilirubin,Urine Negative (Negative); Blood,Urine Large (Negative); Budding Yeast,Urine Rare /hpf; Color,Urine Light Red; Glucose,Urine (UA) Negative (Negative); Hyaline Casts,Urine 16 /lpf (0-2); Ketones,Urine Negative (Negative); Leukocyte Esterase,Urine Large (Negative); Mucus,Urine Rare /hpf; Nitrite,Urine Negative (Negative); PH, Urine 5.5 (5.0-8.0); Protein,Urine 1+ (Negative); RBC,Urine 49 /hpf (0-5); Specific Gravity,Urine 1.014 (1.001-1.035); Squamous Epithelial Cell,Urine 2 /hpf (0-4); Urobilinogen,Urine <2.0 mg/dL (<2.0); WBC,Urine >182 /hpf (0-5)
--- NOTE | 2024-01-26 14:06 | P.CONS ---
History of Present Illness - Reason for Consult Consult date: 01/26/24 Leukocytosis - Chief Complaint Dizziness - History of Present Illness Ms. Dutton is a 68-year-old woman with past medical history significant for hypertension and hyperlipidemia for whom we are consulted regarding leukocytosis. Approximately 3 weeks ago, she had left knee replacement, which she underwent without any significant complications. About 1 week later, she developed progressive watery diarrhea that has been consistent. She denies any melena, hematochezia, or bright red blood per rectum. Over the past 4 to 5 days, she began having orthostatic dizziness/lightheadedness. She denies any fevers, chills, night sweats, lymphadenopathy, or unexplained weight loss. She denies any new medication changes. She denies smoking cigarettes currently, but smoked around 0.5-1 PPD for about 20 years. She stopped smoking recently prior to her left knee surgery. Given her signs and symptoms, she was brought to the ED for further evaluation. In the ED, concern of tachycardia to heart rate of 140 and blood pressure of 97/61. Labs revealed evidence of LUCA with creatinine 3.27, BUN 56, AST 50, ALT 54, alkaline phosphatase 225, total bilirubin 1.7, troponin 0.252. Lactic acid was elevated at 2.7. Urinalysis noted large blood and leukocyte Estrace with greater than 182 WBCs. CBC noted WBC 42.4 that was prominently neutrophilic, hemoglobin 10.5 (MCV 95.7), platelets 167. Metamyelocytes was present as well as toxic granulation. Brain CT noted acute sinusitis in the maxillary sinuses with chest x-ray showing changes consistent with congestive heart failure with cardiomegaly, pulmonary congestion/edema, and small bilateral pleural effusions. Ultrasound of the abdomen and kidneys noted moderate right hydronephrosis and small to moderate left hydronephrosis. She was given 2 L of normal saline along with ceftriaxone. Review of Systems 14 point review of systems was conducted with pertinent positives and negatives as noted per HPI Past Medical History Past Medical History: Hyperlipidemia, Hypertension Additional Past Surgical History / Comment(s): left knee replacement Past Psychological History: No Psychological Hx Reported Smoking Status: Former smoker Past Alcohol Use History: None Reported Past Drug Use History: None Reported Medications and Allergies Home Medications Medication Instructions Recorded Confirmed Type Aspirin EC [Ecotrin Low Dose] 81 mg PO DAILY 01/25/24 01/25/24 History Atorvastatin [Lipitor] 40 mg PO DAILY 01/25/24 01/25/24 History lisinopriL [Prinivil] 10 mg PO DAILY 01/25/24 01/25/24 History Allergies Allergy/AdvReac Type Severity Reaction Status Date / Time No Known Allergies Allergy Verified 01/25/24 14:53 Physical Exam Vitals: Vital Signs Temp Pulse Pulse Resp BP BP Pulse Ox 01/26/24 11:50 98.3 F 95 16 129/85 95 01/26/24 08:30 101 F H 95 16 111/61 97 01/26/24 06:26 112 H 18 107/69 97 01/26/24 05:14 140 H 30 H 99 01/26/24 04:56 97.8 F 105 H 18 123/77 99 01/26/24 03:30 75 16 117/75 96 01/26/24 01:30 90 18 118/71 96 01/25/24 18:19 92 18 99/67 95 01/25/24 15:49 104 H 97/65 01/25/24 15:46 98 96/72 01/25/24 15:43 102 H 100/63 01/25/24 15:38 101 H 18 97/61 97 01/25/24 14:48 98.4 F 101 H 18 100/62 94 L - Constitutional General appearance: cooperative, no acute distress - EENT Eyes: EOMI - Respiratory Respiratory: bilateral: other (Mild crackles at the bases) - Cardiovascular Rhythm: regular - Gastrointestinal General gastrointestinal: distended, hyperactive bowel sounds, no tenderness - Neurologic Neurologic: CNII-XII intact - Psychiatric Psychiatric: A&O x's 3 Results CBC & Chem 7: 01/26/24 03:06 01/26/24 03:06 Labs: Abnormal Lab Results - Last 24 Hours (Table) 01/25/24 01/25/24 01/25/24 Range/Units 16:32 16:32 16:32 WBC 47.4 H (3.8-10.6) k/uL RBC 3.51 L (3.80-5.40) m/uL Hgb 10.5 L (11.4-16.0) gm/dL Hct 33.5 L (34.0-46.0) % Neutrophils # (Manual) 43.60 H (1.3-7.7) k/uL Lymphocytes # (Manual) (1.0-4.8) k/uL Monocytes # (Manual) 1.42 H (0-1.0) k/uL Metamyelocytes # (Man) 0.95 H (0) k/uL Myelocytes # (Manual) 0.47 H (0) k/uL Sodium 133 L (137-145) mmol/L Carbon Dioxide 17 L (22-30) mmol/L BUN 56 H (7-17) mg/dL Creatinine 3.24 H (0.52-1.04) mg/dL Glucose 150 H (74-99) mg/dL Plasma Lactic Acid Endy 2.7 H* (0.7-2.0) mmol/L Calcium 7.0 L (8.4-10.2) mg/dL Total Bilirubin 1.7 H (0.2-1.3) mg/dL AST 50 H (14-36) U/L ALT 54 H (4-34) U/L Alkaline Phosphatase 225 H (38-126) U/L Troponin I (0.000-0.034) ng/mL Total Protein 5.3 L (6.3-8.2) g/dL Albumin 2.7 L (3.5-5.0) g/dL Urine Appearance (Clear) Urine Protein (Negative) Urine Blood (Negative) Ur Leukocyte Esterase (Negative) Urine RBC (0-5) /hpf Urine WBC (0-5) /hpf Urine WBC Clumps (None) /hpf Urine Bacteria (None) /hpf Hyaline Casts (0-2) /lpf Urine Mucus (None) /hpf Urine Yeast (Budding) (None) /hpf 01/25/24 01/25/24 01/26/24 Range/Units 16:32 19:16 03:06 WBC (3.8-10.6) k/uL RBC (3.80-5.40) m/uL Hgb (11.4-16.0) gm/dL Hct (34.0-46.0) % Neutrophils # (Manual) (1.3-7.7) k/uL Lymphocytes # (Manual) (1.0-4.8) k/uL Monocytes # (Manual) (0-1.0) k/uL Metamyelocytes # (Man) (0) k/uL Myelocytes # (Manual) (0) k/uL Sodium (137-145) mmol/L Carbon Dioxide (22-30) mmol/L BUN (7-17) mg/dL Creatinine (0.52-1.04) mg/dL Glucose (74-99) mg/dL Plasma Lactic Acid Endy (0.7-2.0) mmol/L Calcium (8.4-10.2) mg/dL Total Bilirubin (0.2-1.3) mg/dL AST (14-36) U/L ALT (4-34) U/L Alkaline Phosphatase (38-126) U/L Troponin I 0.252 H* 0.233 H* 0.161 H* (0.000-0.034) ng/mL Total Protein (6.3-8.2) g/dL Albumin (3.5-5.0) g/dL Urine Appearance (Clear) Urine Protein (Negative) Urine Blood (Negative) Ur Leukocyte Esterase (Negative) Urine RBC (0-5) /hpf Urine WBC (0-5) /hpf Urine WBC Clumps (None) /hpf Urine Bacteria (None) /hpf Hyaline Casts (0-2) /lpf Urine Mucus (None) /hpf Urine Yeast (Budding) (None) /hpf 01/26/24 01/26/24 01/26/24 Range/Units 03:06 03:06 13:07 WBC 42.1 H (3.8-10.6) k/uL RBC 3.40 L (3.80-5.40) m/uL Hgb 10.5 L (11.4-16.0) gm/dL Hct 31.4 L (34.0-46.0) % Neutrophils # (Manual) 39.50 H (1.3-7.7) k/uL Lymphocytes # (Manual) 0.84 L (1.0-4.8) k/uL Monocytes # (Manual) (0-1.0) k/uL Metamyelocytes # (Man) 0.84 H (0) k/uL Myelocytes # (Manual) (0) k/uL Sodium 135 L (137-145) mmol/L Carbon Dioxide 17 L (22-30) mmol/L BUN 63 H (7-17) mg/dL Creatinine 3.47 H (0.52-1.04) mg/dL Glucose (74-99) mg/dL Plasma Lactic Acid Endy (0.7-2.0) mmol/L Calcium 6.7 L (8.4-10.2) mg/dL Total Bilirubin (0.2-1.3) mg/dL AST 45 H (14-36) U/L ALT 50 H (4-34) U/L Alkaline Phosphatase 198 H (38-126) U/L Troponin I (0.000-0.034) ng/mL Total Protein 5.2 L (6.3-8.2) g/dL Albumin 2.6 L (3.5-5.0) g/dL Urine Appearance Turbid H (Clear) Urine Protein 1+ H (Negative) Urine Blood Large H (Negative) Ur Leukocyte Esterase Large H (Negative) Urine RBC 49 H (0-5) /hpf Urine WBC >182 H (0-5) /hpf Urine WBC Clumps Many H (None) /hpf Urine Bacteria Many H (None) /hpf Hyaline Casts 16 H (0-2) /lpf Urine Mucus Rare H (None) /hpf Urine Yeast (Budding) Rare H (None) /hpf Chest x-ray: report reviewed, image reviewed US - abdomen: report reviewed Assessment and Plan (1) Normocytic anemia Current Visit: Yes Status: Acute Code(s): D64.9 - ANEMIA, UNSPECIFIED SNOMED Code(s): 107110135 (2) Diarrhea Current Visit: Yes Status: Acute Code(s): R19.7 - DIARRHEA, UNSPECIFIED SNOMED Code(s): 89310718 (3) Leukocytosis Current Visit: Yes Status: Acute Code(s): D72.829 - ELEVATED WHITE BLOOD CELL COUNT, UNSPECIFIED SNOMED Code(s): 853633208 Plan: Neutrophilic leukocytosis -WBC noted to be around 42 that is predominantly neutrophilic with metamyelocytes and myelocytes and toxic granulation noted -She denies any constitutional symptoms with no current history of smoking -Exam revealed no evidence of lymphadenopathy with distended abdomen in the setting of diarrhea -I do suspect leukemoid reaction secondary to underlying colitis, possibly C. difficile colitis given she recently had knee replacement and likely had preoperative and postoperative antibiotics followed by development of profuse watery diarrhea -Malignancy appears less likely at this time -Agree with CT abdomen/pelvis to assess for occult malignancy -If she has continued leukocytosis with no other identifiable etiology, further workup can be pursued such as myeloproliferative neoplasm workup or even bone marrow biopsy Normocytic normochromic anemia -Noted to have hemoglobin of 10.5 on admission -This could be due to inflammation secondary to underlying colitis -Workup for nutritional etiologies as well as monoclonal myopathy has been ordered Diarrhea -Started a week after undergoing left knee replacement surgery -C. difficile PCR has been ordered and is pending Aris Ulrich MD
--- NOTE | 2024-01-26 15:18 | CT ---
EXAMINATION TYPE: CT abdomen pelvis wo con DATE OF EXAM: 01/26/2024 COMPARISON: Ultrasound same day HISTORY: 68-year-old female sepsis CT DLP: 450.7 mGycm. Automated exposure control for dose reduction was used. TECHNIQUE: Contiguous axial scanning of the abdomen and pelvis without IV contrast. Coronal and sagit tyshawn reconstructions performed. FINDINGS: The heart is mildly enlarged. Dependent opacities, possible effusions. Noncontrast appearance of the liver, gallbladder, right adrenal gland, spleen, and pancreas shows no gross abnormality. There is a 2.0 cm low density nodule left adrenal gland. Density characteristics suggest a benign, li pid rich adrenal adenoma. There is mild to moderate left hydronephrosis and left hydroureter. Moderate to severe right hydronephrosis and hydroureter. Bilateral perinephric edema. No dilated small bowel, free fluid. Normal appendix. No significant stool burden. Oral contrast progr essed to the rectum. No pericolonic inflammatory change. There is olivia abnormality of the perineum. There appears to be a large pelvic floor prolapse, refer toe sagittal image 77. Guzman catheter is located below the level of the perineum within the abnormal soft tissue. A tiny the bladder is not well delineated. Soft tissue behind the Guzman catheter may rep resent the prolapsed uterus or other abnormal soft tissue and should be correlated clinically. No pel latrice lymphadenopathy. Bones: Severe degenerative disc disease L2-L3. Facet arthropathy with degenerative grade 1 retrolisth esis L3-L4. IMPRESSION: 1. A severe pelvic floor prolapse. The bladder is not well delineated and may be located below the p erineum. The inflated Guzman catheter balloon is also located below the perineum. Unclear if it is pos itioned in the bladder lumen or not. Soft tissue measuring up to 7 cm located posterior to the Guzman balloon could represent a completely prolapsed uterus or other abnormal soft tissue. Surgical evaluat ion recommended. 2. There is an associated moderate to severe right and moderate left hydronephrosis and hydroureter. 3. Incidental 2.0 cm lipid rich left adrenal adenoma.
--- NOTE | 2024-01-26 18:34 | P.NPCON ---
History of Present Illness - Reason for Consult Consult date: 01/26/24 - Chief Complaint Dizziness - History of Present Illness Patient is a 68yo female presents to the ED for postural lightheadedness. She reports poor appetite and watery diarrhea for the past week. She reports nausea but no vomiting. She reports a dry cough. She underwent left total knee arthropasty 3 weeks ago and recovery has been going well. She reports 15 year PPD smoking history, recently quit 3 weeks ago. She states that she does not follow with doctors regularly but is prescribed BP medication. She also has history of prolapsed bladder. In ED she showed work-up of borderline low BP dana ng with US showing bilateral hydronephrosis. She denies any other complaints at this time. Vital signs are stable. General: No acute distress. HEENT: Head exam is unremarkable. LUNGS: No audible rhonchi or wheezes. HEART: Rate and Rhythm are regular. ABDOMEN: Nontender. EXTREMITITES: no edema. Past Medical History Past Medical History: Hyperlipidemia, Hypertension Additional Past Surgical History / Comment(s): left knee replacement Past Psychological History: No Psychological Hx Reported Smoking Status: Former smoker Past Alcohol Use History: None Reported Past Drug Use History: None Reported - Past Family History Mother Family Medical History: Cancer Additional Family Medical History / Comment(s): liver CA Father Family Medical History: Cancer Additional Family Medical History / Comment(s): stomach CA Medications and Allergies Home Medications Medication Instructions Recorded Confirmed Type Aspirin EC [Ecotrin Low Dose] 81 mg PO DAILY 01/25/24 01/25/24 History Atorvastatin [Lipitor] 40 mg PO DAILY 01/25/24 01/25/24 History lisinopriL [Prinivil] 10 mg PO DAILY 01/25/24 01/25/24 History Allergies Allergy/AdvReac Type Severity Reaction Status Date / Time No Known Allergies Allergy Verified 01/25/24 14:53 Physical Exam Vitals: Vital Signs Temp Pulse Pulse Resp BP BP Pulse Ox 01/26/24 06:26 112 H 18 107/69 97 01/26/24 05:14 140 H 30 H 99 01/26/24 04:56 97.8 F 105 H 18 123/77 99 01/26/24 03:30 75 16 117/75 96 01/26/24 01:30 90 18 118/71 96 01/25/24 18:19 92 18 99/67 95 01/25/24 15:49 104 H 97/65 01/25/24 15:46 98 96/72 01/25/24 15:43 102 H 100/63 01/25/24 15:38 101 H 18 97/61 97 01/25/24 14:48 98.4 F 101 H 18 100/62 94 L Results - Lab Results Most recent lab results Calcium 6.7 mg/dL (8.4-10.2) L 01/26/24 03:06 Magnesium 1.9 mg/dL (1.6-2.3) 01/26/24 03:06 01/26/24 03:06 01/26/24 03:06 Assessment and Plan Plan: Assessment: 1. Non-oliguric LUCA likely obstructive nephropathy along with ATN. Baseline creatinine unknown. Presented 3.4-->3.5 today. UA many hyaline casts and infection. Renal US showed bilateral hydronephrosis. 2. Bilateral hydronephrosis with prolapsed bladder 3. HTN 4. Dizziness- orthostatic vs vertigo 5. NAGMA related to LUCA and diarrhea Plan: Guzman ordered but unable to place due to prolapsed bladder. Consult urology. Continue IVF Check orthostatic vital signs Strict I/O's, daily BMP No indication for HD at this time.
[2024-01-26 22:44] LABS: Immunoglobulin M 76.3 mg/dL (40.0-280.0); Protein, Total 5.1 g/dL (6.2-8.2)
[2024-01-26 23:01] LABS: % Iron Saturation 5.49 (12.00-45.00)
[2024-01-27] MEDS ORDERED: ZINC OXIDE PASTE (Z-GUARD) 1 APPLIC TOPICAL PRN (01:03)
[2024-01-27 08:33] LABS: Albumin 2.4 g/dL (3.5-5.0); Bilirubin, Delta 0.5 mg/dL (0.0-0.2); Total Bilirubin 0.5 mg/dL (0.2-1.3); Total Protein 5.1 g/dL (6.3-8.2)
[2024-01-27] MEDS: ATORVASTATIN 40 MG TAB PO SCH (08:40)
[2024-01-27 09:06] LABS: HCT 34.2 % (34.0-46.0); MCHC 32.1 g/dL (31.0-37.0); MCV 93.3 fL (80.0-100.0); Mean Platelet Volume 10.2; Platelet Count 115 k/uL (150-450); RBC 3.67 m/uL (3.80-5.40); WBC 22.3 k/uL (3.8-10.6)
--- NOTE | 2024-01-27 09:37 | P.GSCN ---
History of Present Illness Consult date: 01/27/24 History of present illness: 68 yo female admitted to the hospital with dizziness, diarrhea and an elevated wbc count. She is 3 weeks sp knee replacement. She had a ct scan yesterday that identified bilateral hydronephrosis. We were asked to see for that reason. She also on ct scan appears to have complete vaginal prolapse. Her urine looks infected.the patient is known about the vaginal prolapse for 3 years. She did see a hand sample maker previously. She had a pessary which she states did not remain in place. She was told that nothing else needs to be done at this point in time. She has an indwelling catheter. Review of Systems All systems: negative - Constitutional Denies fever, Denies weight loss - EENT Eyes: denies blurred vision Ears, nose, mouth and throat: Denies dysphagia - Cardiovascular Denies chest pain, Denies shortness of breath - Respiratory Denies cough, Denies 7 - Gastrointestinal Reports as per HPI - Genitourinary Genitourinary: Denies dysuria, Denies hematuria - Integumentary Denies rash, Denies unusual bruising - Neurological Denies headaches, Denies syncope - Hematologic/Lymphatic Denies easy bleeding, Denies easy bruising Past Medical History Past Medical History: Hyperlipidemia, Hypertension History of Any Multi-Drug Resistant Organisms: None Reported Past Surgical History: Orthopedic Surgery Additional Past Surgical History / Comment(s): left knee replacement Past Anesthesia/Blood Transfusion Reactions: No Reported Reaction Past Psychological History: No Psychological Hx Reported Smoking Status: Former smoker Past Alcohol Use History: None Reported Past Drug Use History: None Reported - Past Family History Mother Family Medical History: Cancer Additional Family Medical History / Comment(s): liver CA Father Family Medical History: Cancer Additional Family Medical History / Comment(s): stomach CA Medications and Allergies Home Medications Medication Instructions Recorded Confirmed Type Aspirin EC [Ecotrin Low Dose] 81 mg PO DAILY 01/25/24 01/25/24 History Atorvastatin [Lipitor] 40 mg PO DAILY 01/25/24 01/25/24 History lisinopriL [Prinivil] 10 mg PO DAILY 01/25/24 01/25/24 History Allergies Allergy/AdvReac Type Severity Reaction Status Date / Time No Known Allergies Allergy Verified 01/25/24 14:53 Surgical - Exam Vital Signs Temp Pulse Resp BP Pulse Ox 98.4 F 101 H 18 100/62 94 L 01/25/24 14:48 01/25/24 14:48 01/25/24 14:48 01/25/24 14:48 01/25/24 14:48 - Genitourinary complete vaginal prolapse. Results - Labs 01/27/24 06:46 01/26/24 03:06 Abnormal Lab Results - Last 24 Hours (Table) 01/26/24 01/26/24 01/26/24 Range/Units 11:27 11:27 13:07 Iron 10 L (50-170) UG/DL TIBC 182 L (228-460) UG/DL % Saturation 5.49 L (12.00-45.00) Transferrin 130.0 L (204.0-354.0) mg/dL Ferritin 624.0 H (10.0-291.0) ng/mL Total Protein (PEP) 5.1 L (6.2-8.2) g/dL Vitamin B12 1416.0 H (200.0-944.0) pg/mL Urine Appearance Turbid H (Clear) Urine Protein 1+ H (Negative) Urine Blood Large H (Negative) Ur Leukocyte Esterase Large H (Negative) Urine RBC 49 H (0-5) /hpf Urine WBC >182 H (0-5) /hpf Urine WBC Clumps Many H (None) /hpf Urine Bacteria Many H (None) /hpf Hyaline Casts 16 H (0-2) /lpf Urine Mucus Rare H (None) /hpf Urine Yeast (Budding) Rare H (None) /hpf IgG 674.0 L (700.0-1600.0) mg/dL Microbiology - Last 24 Hours (Table) 01/25/24 18:30 Blood Culture Gram Stain - Preliminary Blood 01/25/24 18:40 Blood Culture Gram Stain - Preliminary Blood Blood Culture - Preliminary Molecular ID - Imaging CT scan - abdomen: report reviewed, image reviewed CT scan - pelvis: report reviewed, image reviewed Assessment and Plan Assessment: Impression: bilateral hydronephrosis, vaginal prolapse, severe Plan: this patients hydro is due to the vaginal prolapse. SHe needs a heating unit installer consulation for this problem
[2024-01-27 09:55] LABS: ALT 41 U/L (4-34); AST 47 U/L (14-36); African American GFR (CKD) 11 (>60 ml/min/1.73 sqM); Albumin 2.4 g/dL (3.5-5.0); Alkaline Phosphatase 243 U/L (38-126); Anion Gap 15 mmol/L; Blood Urea Nitrogen 65 mg/dL (7-17); Calcium 6.9 mg/dL (8.4-10.2); Chloride 110 mmol/L (98-107); Glucose 97 mg/dL (74-99); Non-African American GFR(CKD) 9 (>60 ml/min/1.73 sqM); Potassium 3.5 mmol/L (3.5-5.1); Sodium 134 mmol/L (137-145); Total Bilirubin 0.5 mg/dL (0.2-1.3); Total Protein 5.1 g/dL (6.3-8.2)
[2024-01-27 10:17] LABS: Carbon Dioxide 9 mmol/L (22-30)
[2024-01-27] MEDS: SODIUM BICARB 8.4% 50 ML SYR (1 MEQ/ML) IV STA (10:54)
[2024-01-27] MEDS: DEXTROSE 5% IN WATER 1,000 ML with SODIUM BICARB (1 MEQ/ML) 150 ML IV ONE (10:56)
--- NOTE | 2024-01-27 10:59 | P.PN ---
Subjective Progress Note Date: 01/27/24 Patient seen in follow-up for LUCA. Guzman was able to be placed yesterday. Feeling better overall. Vital signs are stable. General: No acute distress. HEENT: Head exam is unremarkable. LUNGS: No audible rhonchi or wheezes. HEART: Rate and Rhythm are regular. ABDOMEN: Nontender. EXTREMITITES: no edema. Objective - Vital Signs Vital signs: Vital Signs Temp 100.9 F H 01/27/24 08:39 Pulse 91 01/27/24 08:39 Resp 18 01/27/24 08:39 BP 118/73 01/27/24 08:39 Pulse Ox 96 01/27/24 08:39 FiO2 Intake & Output 01/26/24 01/27/24 01/27/24 18:59 06:59 18:59 Intake Total 1080 20 Output Total 300 200 Balance 780 -180 Weight 60.781 kg Intake: IV 20 Invasive Line 1 10 Invasive Line 2 10 Intake, IV Titration 900 Amount Sodium Chloride 0.9% 1, 900 000 ml @ 75 mls/hr IV . [id number] [facility] Rx#:[id number] Oral 180 Output: Urine 300 200 Uretheral (Guzman) 300 Other: Voiding Method Indwelling Catheter # Bowel Movements 2 - Labs CBC & Chem 7: 01/27/24 06:46 01/27/24 06:46 Labs: Abnormal Lab Results - Last 24 Hours (Table) 01/26/24 01/26/24 01/26/24 Range/Units 11:27 11:27 13:07 WBC (3.8-10.6) k/uL RBC (3.80-5.40) m/uL Hgb (11.4-16.0) gm/dL Plt Count (150-450) k/uL Iron 10 L (50-170) UG/DL TIBC 182 L (228-460) UG/DL % Saturation 5.49 L (12.00-45.00) Transferrin 130.0 L (204.0-354.0) mg/dL Ferritin 624.0 H (10.0-291.0) ng/mL Delta Bilirubin (0.0-0.2) mg/dL AST (14-36) U/L ALT (4-34) U/L Alkaline Phosphatase (38-126) U/L Total Protein (6.3-8.2) g/dL Total Protein (PEP) 5.1 L (6.2-8.2) g/dL Albumin (3.5-5.0) g/dL Vitamin B12 1416.0 H (200.0-944.0) pg/mL Urine Appearance Turbid H (Clear) Urine Protein 1+ H (Negative) Urine Blood Large H (Negative) Ur Leukocyte Esterase Large H (Negative) Urine RBC 49 H (0-5) /hpf Urine WBC >182 H (0-5) /hpf Urine WBC Clumps Many H (None) /hpf Urine Bacteria Many H (None) /hpf Hyaline Casts 16 H (0-2) /lpf Urine Mucus Rare H (None) /hpf Urine Yeast (Budding) Rare H (None) /hpf IgG 674.0 L (700.0-1600.0) mg/dL 01/27/24 01/27/24 Range/Units 06:46 06:46 WBC 22.3 H (3.8-10.6) k/uL RBC 3.67 L (3.80-5.40) m/uL Hgb 11.0 L (11.4-16.0) gm/dL Plt Count 115 L (150-450) k/uL Iron (50-170) UG/DL TIBC (228-460) UG/DL % Saturation (12.00-45.00) Transferrin (204.0-354.0) mg/dL Ferritin (10.0-291.0) ng/mL Delta Bilirubin 0.5 H (0.0-0.2) mg/dL AST 46 H (14-36) U/L ALT 41 H (4-34) U/L Alkaline Phosphatase 242 H (38-126) U/L Total Protein 5.1 L (6.3-8.2) g/dL Total Protein (PEP) (6.2-8.2) g/dL Albumin 2.4 L (3.5-5.0) g/dL Vitamin B12 (200.0-944.0) pg/mL Urine Appearance (Clear) Urine Protein (Negative) Urine Blood (Negative) Ur Leukocyte Esterase (Negative) Urine RBC (0-5) /hpf Urine WBC (0-5) /hpf Urine WBC Clumps (None) /hpf Urine Bacteria (None) /hpf Hyaline Casts (0-2) /lpf Urine Mucus (None) /hpf Urine Yeast (Budding) (None) /hpf IgG (700.0-1600.0) mg/dL Microbiology - Last 24 Hours (Table) 01/25/24 18:30 Blood Culture Gram Stain - Preliminary Blood 01/25/24 18:40 Blood Culture Gram Stain - Preliminary Blood Blood Culture - Preliminary Molecular ID Assessment and Plan Plan: Assessment: 1. Non-oliguric LUCA likely obstructive nephropathy along with ATN. Baseline creatinine unknown. Presented 3.4-->3.5. UA many hyaline casts and infection. Renal US showed bilateral hydronephrosis. 2. Bilateral hydronephrosis with prolapsed bladder 3. HTN 4. Dizziness- orthostatic vs vertigo 5. NAGMA related to LUCA and diarrhea Plan: Guzman placed, some urine output noted. Consult urology. Continue IVF Strict I/O's, daily BMP No indication for HD at this time. Await morning labs.
--- NOTE | 2024-01-27 11:23 | P.PN ---
Subjective Progress Note Date: 01/27/24 HISTORY OF PRESENT ILLNESS: This is a 68-year-old female with a past medical history significant for hy pertension and hyperlipidemia. Patient follows in the office with Dr. Tate. We have been asked to see the patient in consultation for elevated troponins. Patient examined at the bedside in the emergency room. Patient states she presented to the hospital with a chief complaint of dizziness. Patient states that she felt like her room was spinning. She states that she was so dizzy she was unable to get out of bed. Patient denies having any chest pain or pressure. She denies any shortness of breath. Patient was found to have significant leukocytosis with a white count in the 40s. Patient denies any history of cancer. Patient was also found to be in acute renal failure with a creatinine of 2.34. DIAGNOSTICS: - EKG reveals sinus mechanism with no signs of acute ischemia - Chest xray cardiomegaly with congestion and edema, possible small pleural effusions. Correlate clinically for moderate CHF Ultrasound kidneys and bladder: Moderate right hydronephrosis with trace debris suggested, mild to moderate left hydronephrosis, left renal cyst largest 1.6 cm and bladder not well-visualized nondistended. CT brain: Negative for acute bleed or mass effect. Acute sinusitis involving the maxillary sinuses. - Laboratory data: WBC 42.5. Hemoglobin 10.5. Platelet count 155. Sodium 135. Potassium 3.6. BUN 63. Creatinine 3.47. Lactic acid 2.7. Bilirubin 1.0. AST 45. ALT 50. Alkaline phosphatase 198. Troponin 0.252. 0.233. 0.161. - Current home cardiac medications include lisinopril 10 mg daily, atorvastatin 40 mg daily, and aspirin 81 mg daily. -Patient underwent Lexiscan stress test in the office on 12/28/2023 which was negative for ischemia. LV function with ejection fraction estimated at 62%. 01/26 Patient has been running fevers this morning at 100.9, blood pressure 118/73 and heart rate in the 90s, pulse ox 96% on room air. Patient does complain of cough. No chest pain. She has been seen by hematology regarding leukocytosis for suspected leukemoid reaction secondary to underlying colitis but this was not identified on the CT. Patient is having worsening renal function and acidosis. Repeat blood work reveals WBC 22, hemoglobin 11, platelet count 115. CO2 9. Sodium 134, potassium 3.5. BUN 65 creatinine 4.58. Liver functions test are stable. Patient is followed by nephrology and consult has been added for urology regarding bilateral hydronephrosis and prolapsed bladder. Echocardiogram reveals EF of 60 to 65%. Results reviewed with the patient. PHYSICAL EXAM: VITAL SIGNS: Reviewed. GENERAL: Well-developed in no acute distress. HEENT: Head is normocephalic. Pupils are equal, round. Sclerae anicteric. Mucous membranes of the mouth are moist. Neck supple. No JVD or thyromegaly LUNGS: Respirations even and unlabored. Lungs essentially clear to auscultation bilaterally. HEART: Regular rate and rhythm. S1 and S2 heard. ABDOMEN: Soft. Nondistended. Nontender. EXTREMITIES: Normal range of motion. No clubbing or cyanosis. Peripheral pulses intact. Trace bilateral lower extremity edema NEUROLOGIC: Awake and alert. Oriented x 3. ASSESSMENT: Dizziness Acute kidney injury most likely obstructive nephropathy along with ATN Metabolic acidosis Abnormal troponins, flat, not suggestive of acute coronary syndrome, likely secondary to acute renal failure Significant leukocytosis, ruled out underlying malignancy by hematology Minimally elevated LFTs Moderate right hydronephrosis Mild to moderate left hydronephrosis Left renal cyst, largest 1.6 cm Hypertension Hyperlipidemia Former nicotine dependence PLAN: An acute coronary event has been ruled out Continue aspirin 81 mg daily, a atorvastatin, Continue to monitor liver function test and discontinue statin therapy if LFTs worsen. Further recommendations pending patient course Nurse practitioner note has been reviewed by physician. Signing provider agrees with the documented findings, assessment, and plan of care documented by PLASTIC CARD GRADER CARDROOM as a scribe. Objective - Vital Signs Vital signs: Vital Signs Temp 100.9 F H 01/27/24 08:39 Pulse 91 01/27/24 08:39 Resp 18 01/27/24 08:39 BP 118/73 01/27/24 08:39 Pulse Ox 96 01/27/24 08:39 FiO2 Intake & Output 01/26/24 01/27/24 01/27/24 18:59 06:59 18:59 Intake Total 1080 20 Output Total 300 200 Balance 780 -180 Weight 60.781 kg Intake: IV 20 Invasive Line 1 10 Invasive Line 2 10 Intake, IV Titration 900 Amount Sodium Chloride 0.9% 1, 900 000 ml @ 75 mls/hr IV . [id number] [facility] Rx#:[id number] Oral 180 Output: Urine 300 200 Uretheral (Guzman) 300 Other: Voiding Method Indwelling Catheter # Bowel Movements 2 - Labs CBC & Chem 7: 01/27/24 06:46 01/27/24 06:46 Labs: Abnormal Lab Results - Last 24 Hours (Table) 01/26/24 01/26/24 01/26/24 Range/Units 11:27 11:27 13:07 Iron 10 L (50-170) UG/DL TIBC 182 L (228-460) UG/DL % Saturation 5.49 L (12.00-45.00) Transferrin 130.0 L (204.0-354.0) mg/dL Ferritin 624.0 H (10.0-291.0) ng/mL Delta Bilirubin (0.0-0.2) mg/dL AST (14-36) U/L ALT (4-34) U/L Alkaline Phosphatase (38-126) U/L Total Protein (6.3-8.2) g/dL Total Protein (PEP) 5.1 L (6.2-8.2) g/dL Albumin (3.5-5.0) g/dL Vitamin B12 1416.0 H (200.0-944.0) pg/mL Urine Appearance Turbid H (Clear) Urine Protein 1+ H (Negative) Urine Blood Large H (Negative) Ur Leukocyte Esterase Large H (Negative) Urine RBC 49 H (0-5) /hpf Urine WBC >182 H (0-5) /hpf Urine WBC Clumps Many H (None) /hpf Urine Bacteria Many H (None) /hpf Hyaline Casts 16 H (0-2) /lpf Urine Mucus Rare H (None) /hpf Urine Yeast (Budding) Rare H (None) /hpf IgG 674.0 L (700.0-1600.0) mg/dL 01/27/24 Range/Units 06:46 Iron (50-170) UG/DL TIBC (228-460) UG/DL % Saturation (12.00-45.00) Transferrin (204.0-354.0) mg/dL Ferritin (10.0-291.0) ng/mL Delta Bilirubin 0.5 H (0.0-0.2) mg/dL AST 46 H (14-36) U/L ALT 41 H (4-34) U/L Alkaline Phosphatase 242 H (38-126) U/L Total Protein 5.1 L (6.3-8.2) g/dL Total Protein (PEP) (6.2-8.2) g/dL Albumin 2.4 L (3.5-5.0) g/dL Vitamin B12 (200.0-944.0) pg/mL Urine Appearance (Clear) Urine Protein (Negative) Urine Blood (Negative) Ur Leukocyte Esterase (Negative) Urine RBC (0-5) /hpf Urine WBC (0-5) /hpf Urine WBC Clumps (None) /hpf Urine Bacteria (None) /hpf Hyaline Casts (0-2) /lpf Urine Mucus (None) /hpf Urine Yeast (Budding) (None) /hpf IgG (700.0-1600.0) mg/dL Microbiology - Last 24 Hours (Table) 01/25/24 18:30 Blood Culture Gram Stain - Preliminary Blood 01/25/24 18:40 Blood Culture Gram Stain - Preliminary Blood Blood Culture - Preliminary Molecular ID
--- NOTE | 2024-01-27 12:24 | P.OBCN ---
History of Present Illness Consult date: 01/27/24 Reason for consult: pelvic prolapse (Total Procendentia) Chief complaint: Dizziness, hydronephrosis, ATN, pelvic organ prolapse History of present illness: 68 year old female who had a total knee replacement 3 weeks ago presented to hospital with dizziness, fatigue and decreased urine output. She was found to have a urinary tract infection and acute tubular necrosis as well as bilateral hydronephrosis thought to be from obstruction. 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 She tried several pessaries 3 years ago which did not stay in. She did see RACING SECRETARY recently who talked to her about surgery that she is looking forward to. She did get her knee replaced 3 weeks ago and a few days ago started having dizziness and unable to continue her physical therapy. This hydronephrosis is likely new and related to incomplete bladder emptying due to the pelvic organ prolapse as well as the UTI and possibly from the anesthesia she had during her total knee replacement. Right now the focus will be to hopefully repair her kidneys were weight prevents repair on their own. She has been doing catheter currently which she may need to go home with if she continues to have incomplete bladder emptying after the ATN has resolved. Review of Systems All systems: negative Constitutional: Denies chills, Denies fever Eyes: denies blurred vision, denies pain Ears, nose, mouth and throat: Denies headache, Denies sore throat Cardiovascular: Denies chest pain, Denies shortness of breath Respiratory: Denies cough Gastrointestinal: Denies abdominal pain, Denies diarrhea, Denies nausea, Denies vomiting Genitourinary: Denies dysuria, Denies hematuria Musculoskeletal: Denies myalgias Integumentary: Denies pruritus, Denies rash Neurological: Denies numbness, Denies weakness Psychiatric: Denies anxiety, Denies depression Endocrine: Denies fatigue, Denies weight change Past Medical History Past Medical History: Hyperlipidemia, Hypertension History of Any Multi-Drug Resistant Organisms: None Reported Past Surgical History: Orthopedic Surgery Additional Past Surgical History / Comment(s): left knee replacement Past Anesthesia/Blood Transfusion Reactions: No Reported Reaction Past Psychological History: No Psychological Hx Reported Smoking Status: Former smoker Past Alcohol Use History: None Reported Past Drug Use History: None Reported - Past Family History Mother Family Medical History: Cancer Additional Family Medical History / Comment(s): liver CA Father Family Medical History: Cancer Additional Family Medical History / Comment(s): stomach CA Medications and Allergies Home Medications Medication Instructions Recorded Confirmed Type Aspirin EC [Ecotrin Low Dose] 81 mg PO DAILY 01/25/24 01/25/24 History Atorvastatin [Lipitor] 40 mg PO DAILY 01/25/24 01/25/24 History lisinopriL [Prinivil] 10 mg PO DAILY 01/25/24 01/25/24 History Allergies Allergy/AdvReac Type Severity Reaction Status Date / Time No Known Allergies Allergy Verified 01/25/24 14:53 Exam Osteopathic Statement: *. No significant issues noted on an osteopathic structural exam other than those noted in the History and Physical/Consult. Vital Signs Temp Pulse Pulse Resp BP BP Pulse Ox 01/27/24 11:59 92 18 112/72 96 01/27/24 10:42 99.2 F 01/27/24 10:29 91 18 01/27/24 08:39 100.9 F H 91 18 118/73 96 01/27/24 04:00 97.5 F L 89 18 142/83 97 01/27/24 00:00 99.2 F 89 18 134/84 97 01/26/24 20:00 100.2 F H 92 18 126/82 95 01/26/24 17:36 85 16 133/87 94 L 01/26/24 15:32 86 16 119/83 97 Intake and Output 01/26/24 01/27/24 01/27/24 22:59 06:59 14:59 Intake Total 1100 240 Output Total 200 Balance 1100 -200 240 Intake: IV 20 Invasive Line 1 10 Invasive Line 2 10 Intake, IV Titration 900 Amount Sodium Chloride 0.9% 1, 900 000 ml @ 75 mls/hr IV . [id number] [facility] Rx#:[id number] Oral 180 240 Output: Urine 200 Other: Voiding Method Indwelling Catheter Indwelling Catheter Indwelling Catheter # Bowel Movements 2 2 Vaginal exam: The patient has total procidentia. There are no areas of necrosis or lesions along the vaginal mucosa. I did reduce the prolapse which was relatively painful for the patient. I can tell that as soon as she starts standing up or has a bowel movement this is going to reverse again. Dr. Denise Daniel was present for exam. Results Result Diagrams: 01/27/24 06:46 01/27/24 06:46 Abnormal Lab Results - Last 24 Hours (Table) 01/26/24 01/26/24 01/26/24 Range/Units 11:27 11:27 13:07 WBC (3.8-10.6) k/uL RBC (3.80-5.40) m/uL Hgb (11.4-16.0) gm/dL Plt Count (150-450) k/uL Sodium (137-145) mmol/L Chloride (98-107) mmol/L Carbon Dioxide (22-30) mmol/L BUN (7-17) mg/dL Creatinine (0.52-1.04) mg/dL Calcium (8.4-10.2) mg/dL Iron 10 L (50-170) UG/DL TIBC 182 L (228-460) UG/DL % Saturation 5.49 L (12.00-45.00) Transferrin 130.0 L (204.0-354.0) mg/dL Ferritin 624.0 H (10.0-291.0) ng/mL Delta Bilirubin (0.0-0.2) mg/dL AST (14-36) U/L ALT (4-34) U/L Alkaline Phosphatase (38-126) U/L Total Protein (6.3-8.2) g/dL Total Protein (PEP) 5.1 L (6.2-8.2) g/dL Albumin (3.5-5.0) g/dL Vitamin B12 1416.0 H (200.0-944.0) pg/mL Urine Appearance Turbid H (Clear) Urine Protein 1+ H (Negative) Urine Blood Large H (Negative) Ur Leukocyte Esterase Large H (Negative) Urine RBC 49 H (0-5) /hpf Urine WBC >182 H (0-5) /hpf Urine WBC Clumps Many H (None) /hpf Urine Bacteria Many H (None) /hpf Hyaline Casts 16 H (0-2) /lpf Urine Mucus Rare H (None) /hpf Urine Yeast (Budding) Rare H (None) /hpf IgG 674.0 L (700.0-1600.0) mg/dL 01/27/24 01/27/24 01/27/24 Range/Units 06:46 06:46 06:46 WBC 22.3 H (3.8-10.6) k/uL RBC 3.67 L (3.80-5.40) m/uL Hgb 11.0 L (11.4-16.0) gm/dL Plt Count 115 L (150-450) k/uL Sodium 134 L (137-145) mmol/L Chloride 110 H (98-107) mmol/L Carbon Dioxide 9 L* (22-30) mmol/L BUN 65 H (7-17) mg/dL Creatinine 4.58 H (0.52-1.04) mg/dL Calcium 6.9 L (8.4-10.2) mg/dL Iron (50-170) UG/DL TIBC (228-460) UG/DL % Saturation (12.00-45.00) Transferrin (204.0-354.0) mg/dL Ferritin (10.0-291.0) ng/mL Delta Bilirubin 0.5 H (0.0-0.2) mg/dL AST 46 H 47 H (14-36) U/L ALT 41 H 41 H (4-34) U/L Alkaline Phosphatase 242 H 243 H (38-126) U/L Total Protein 5.1 L 5.1 L (6.3-8.2) g/dL Total Protein (PEP) (6.2-8.2) g/dL Albumin 2.4 L 2.4 L (3.5-5.0) g/dL Vitamin B12 (200.0-944.0) pg/mL Urine Appearance (Clear) Urine Protein (Negative) Urine Blood (Negative) Ur Leukocyte Esterase (Negative) Urine RBC (0-5) /hpf Urine WBC (0-5) /hpf Urine WBC Clumps (None) /hpf Urine Bacteria (None) /hpf Hyaline Casts (0-2) /lpf Urine Mucus (None) /hpf Urine Yeast (Budding) (None) /hpf IgG (700.0-1600.0) mg/dL Microbiology - Last 24 Hours (Table) 01/25/24 18:30 Blood Culture Gram Stain - Preliminary Blood Blood Culture - Preliminary Gram Neg Bacilli 01/25/24 18:40 Blood Culture Gram Stain - Preliminary Blood Blood Culture - Preliminary Gram Neg Bacilli Molecular ID Assessment and Plan (1) Acute kidney injury Current Visit: Yes Status: Acute Code(s): N17.9 - ACUTE KIDNEY FAILURE, UNSPECIFIED SNOMED Code(s): 07310110 (2) Dizziness Current Visit: Yes Status: Acute Code(s): R42 - DIZZINESS AND GIDDINESS SNOMED Code(s): 826618370 (3) Procidentia of uterus Current Visit: Yes Status: Acute Code(s): N81.3 - COMPLETE UTEROVAGINAL PROLAPSE SNOMED Code(s): 25115241 Plan: 1. maintain mejias for acurate urine output 2. may need to continue mejias catheter outpatient until she can follow up with her senior energy consultant
--- NOTE | 2024-01-27 14:16 | P.PN ---
Subjective Progress Note Date: 01/27/24 Principal diagnosis: Leukocytosis -Febrile with Tmax of 101 F -C. difficile PCR was negative, but blood cultures revealed gram-negative bacilli -CT abdomen/pelvis revealed moderate to severe right hydronephrosis along with moderate left hydronephrosis with concern for severe pelvic floor prolapse and bladder being located below the perineum -She notes having generalized weakness, but overall feeling improved since admission. Diarrhea has improved Objective - Vital Signs Vital signs: Vital Signs Temp 99.2 F 01/27/24 10:42 Pulse 92 01/27/24 11:59 Resp 18 01/27/24 11:59 BP 112/72 01/27/24 11:59 Pulse Ox 96 01/27/24 11:59 FiO2 Intake & Output 01/26/24 01/27/24 01/27/24 18:59 06:59 18:59 Intake Total 1080 20 240 Output Total 300 200 Balance 780 -180 240 Weight 60.781 kg Intake: IV 20 Invasive Line 1 10 Invasive Line 2 10 Intake, IV Titration 900 Amount Sodium Chloride 0.9% 1, 900 000 ml @ 75 mls/hr IV . [id number] [facility] Rx#:[id number] Oral 180 240 Output: Urine 300 200 Uretheral (Guzman) 300 Other: Voiding Method Indwelling Catheter Indwelling Catheter # Bowel Movements 2 2 - Constitutional General appearance: Present: cooperative, no acute distress - EENT Eyes: Present: EOMI - Respiratory Details: Nonlabored breathing - Cardiovascular Details: Warm and well-perfused - Gastrointestinal General gastrointestinal: Present: distended, soft. Absent: tenderness - Integumentary Integumentary: Absent: pale, rash - Neurologic Neurologic: Present: CNII-XII intact. Absent: focal deficits - Labs CBC & Chem 7: 01/27/24 06:46 01/27/24 06:46 Labs: Abnormal Lab Results - Last 24 Hours (Table) 01/26/24 01/26/24 01/27/24 Range/Units 11:27 11:27 06:46 WBC (3.8-10.6) k/uL RBC (3.80-5.40) m/uL Hgb (11.4-16.0) gm/dL Plt Count (150-450) k/uL Sodium (137-145) mmol/L Chloride (98-107) mmol/L Carbon Dioxide (22-30) mmol/L BUN (7-17) mg/dL Creatinine (0.52-1.04) mg/dL Calcium (8.4-10.2) mg/dL Iron 10 L (50-170) UG/DL TIBC 182 L (228-460) UG/DL % Saturation 5.49 L (12.00-45.00) Transferrin 130.0 L (204.0-354.0) mg/dL Ferritin 624.0 H (10.0-291.0) ng/mL Delta Bilirubin 0.5 H (0.0-0.2) mg/dL AST 46 H (14-36) U/L ALT 41 H (4-34) U/L Alkaline Phosphatase 242 H (38-126) U/L Total Protein 5.1 L (6.3-8.2) g/dL Total Protein (PEP) 5.1 L (6.2-8.2) g/dL Albumin 2.4 L (3.5-5.0) g/dL Vitamin B12 1416.0 H (200.0-944.0) pg/mL IgG 674.0 L (700.0-1600.0) mg/dL 01/27/24 01/27/24 Range/Units 06:46 06:46 WBC 22.3 H (3.8-10.6) k/uL RBC 3.67 L (3.80-5.40) m/uL Hgb 11.0 L (11.4-16.0) gm/dL Plt Count 115 L (150-450) k/uL Sodium 134 L (137-145) mmol/L Chloride 110 H (98-107) mmol/L Carbon Dioxide 9 L* (22-30) mmol/L BUN 65 H (7-17) mg/dL Creatinine 4.58 H (0.52-1.04) mg/dL Calcium 6.9 L (8.4-10.2) mg/dL Iron (50-170) UG/DL TIBC (228-460) UG/DL % Saturation (12.00-45.00) Transferrin (204.0-354.0) mg/dL Ferritin (10.0-291.0) ng/mL Delta Bilirubin (0.0-0.2) mg/dL AST 47 H (14-36) U/L ALT 41 H (4-34) U/L Alkaline Phosphatase 243 H (38-126) U/L Total Protein 5.1 L (6.3-8.2) g/dL Total Protein (PEP) (6.2-8.2) g/dL Albumin 2.4 L (3.5-5.0) g/dL Vitamin B12 (200.0-944.0) pg/mL IgG (700.0-1600.0) mg/dL Microbiology - Last 24 Hours (Table) 01/25/24 18:30 Blood Culture Gram Stain - Preliminary Blood Blood Culture - Preliminary Gram Neg Bacilli 01/25/24 18:40 Blood Culture Gram Stain - Preliminary Blood Blood Culture - Preliminary Gram Neg Bacilli Molecular ID - Imaging and Cardiology CT scan - abdomen: report reviewed, image reviewed Assessment and Plan (1) Normocytic anemia Current Visit: Yes Status: Acute Code(s): D64.9 - ANEMIA, UNSPECIFIED SNOMED Code(s): 557073562 (2) Diarrhea Current Visit: Yes Status: Acute Code(s): R19.7 - DIARRHEA, UNSPECIFIED SNOMED Code(s): 11340083 (3) Leukocytosis Current Visit: Yes Status: Acute Code(s): D72.829 - ELEVATED WHITE BLOOD CELL COUNT, UNSPECIFIED SNOMED Code(s): 515532937 (4) Secondary thrombocytopenia Current Visit: Yes Status: Acute Code(s): D69.59 - OTHER SECONDARY THROMBOCYTOPENIA SNOMED Code(s): 954827446 Plan: Neutrophilic leukocytosis -WBC noted to be around 42 that is predominantly neutrophilic with metamyelocytes and myelocytes and toxic granulation noted -She denies any constitutional symptoms with no current history of smoking -Exam revealed no evidence of lymphadenopathy with distended abdomen -C. difficile PCR was negative with positive blood cultures growing gram- negative bacilli -CT abdomen/pelvis noted moderate to severe right hydronephrosis and moderate left-sided hydronephrosis in setting of severe pelvic prolapse -White blood cell count following administration of antibiotics has improved to 22.3 -Her leukocytosis was secondary to leukemoid reaction due to gram-negative bacteremia -I anticipate this will continue to improve with antibiotics -No additional workup from a hematology perspective is required at this time -Acute and long-term management of bacteremia as well as her pelvic prolapse to be determined by primary and ACCOUNT COORDINATOR teams, appreciate their assistance Normocytic normochromic anemia -Noted to have hemoglobin of 10.5 on admission -This could be due to inflammation secondary to underlying colitis -Iron studies were consistent with anemia of inflammation due to bacteremia with no evidence of vitamin B12 or folate deficiency -No additional workup required at this time Thrombocytopenia -Platelets 115 today -Likely secondary to bacteremia, which could also be exacerbated by cephalosporin antibiotics -Will continue to monitor platelet counts during her hospitalization -No need for workup for etiology such as heparin-induced thrombocytopenia at this time Diarrhea -Started a week after undergoing left knee replacement surgery -C. difficile PCR negative -Management per primary team Aris Ulrich MD
--- NOTE | 2024-01-27 18:46 | P.PN ---
Subjective Progress Note Date: 01/27/24 (delayed charting seen at 1130) Patient is a 68-year-old female with hypertension, dyslipidemia, and uterus/basilar prolapse who presented to the emergency department with 3 to 4 days of dizziness. Patient had had a knee surgery 3 weeks ago and since that time has had some diarrhea and poor oral intake. On arrival to the ER she was tachycardic with a pulse of 101 and the remainder of her vital signs are within normal limits. Initial laboratory analysis was remarkable for white blood cell count of 47.4, sodium 133, carbon dioxide 17, BUN 56, creatinine 3.24, lactic acid 2.7, total bilirubin 1.7, AST 50, ALT 54, and troponin 0.052. She underwent a CT head which showed acute sinusitis of the maxillary sinus. Patient was admitted for orthostatic hypotension and leukocytosis. She was s tarted on Rocephin in the emergency department. Oncology was consulted to rule out leukemia. She was also started on IV fluids, her lisinopril was held, nephrology was consulted due to her acute kidney injury. Due to her elevated troponin cardiology was consulted. Troponins were trended and flat not consistent with acute coronary syndrome. Cardiology recommended continuing her Lipitor. Echocardiogram was performed which showed ejection fraction 60 to 65% without any wall motion abnormalities. She underwent renal ultrasound which showed moderate right hydronephrosis with mild to moderate left hydronephrosis. Normal gallbladder ultrasound which showed continued moderate hydronephrosis with no gallstones or ductal dilatation. Nephrology recommended urology consult and IV fluids as well as Guzman catheter placement. She was seen by oncology who felt that her leukocytosis is likely secondary to infection and leukemoid reaction. C. difficile was negative. She came back with an E. coli bacteremia in 2 out of 2 cultures. Urinalysis was consistent with urinary tract infection. Urology recommended gynecology consult. She underwent a CT abdomen and pelvis which demonstrated severe pelvic floor prolapse Patient seen and examined at bedside. She states her dizziness is somewhat better. She denies any nausea or vomiting. No dysuria. She has had her prolapse for quite some time and it comes out immediately upon standing. No chest pain or shortness of breath. She denies any fatigue. Patient seen in conjunction with Dr. Song from [facility]. Vital signs reviewed General: Nontoxic, no distress, appears at stated age Cardiovascular: S1S2 reg, no murmur Lungs: CTA bilateral, no rhonchi, no rales, no accessory muscle use Abdominal: Soft, nontender to palpation, no guarding Ext: No gross muscle atrophy, no edema b/l lower extremities, no contractures Neuro: CN II-XI grossly intact, no focal neuro deficits Psych: Alert, oriented, appropriate affect Assessment/Plan: Urinary tract infection with E. coli bacteremia associated with sepsis Acute kidney injury Metabolic acidosis Bilateral moderate hydronephrosis Bladder and uterine prolapse Transaminitis, stable -Continue with Guzman catheter -Sodium bicarb 1 amp x 1 now. Discontinue normal saline and start D5W with 3 A of sodium bicarb at 75 cc/h -Avoid additional nephrotoxic agents, lisinopril on hold -Nephrology note reviewed: Awaiting morning labs -Urology recommendations appreciated: Gynecology consultation. -Case discussed with Dr. Song and plan will be for possible surgery for pro lapse once her acute issues have resolved and continuing with her Guzman catheter. -Await sensitivities from blood cultures -Continue with Rocephin 2 g every 24 hours Leukocytosis likely secondary to infection Normocytic normochromic anemia Thrombocytopenia -Oncology note reviewed: Continue to follow platelets likely secondary to infection and cephalosporin antibiotic. -Follow CBC -Await kappa and lambda light chain as well as MMA and serum electrophoresis -IgG low at 674 Elevated troponin, not consistent with ACS -Continue with aspirin 81 mg and atorvastatin. -Aspirin 81 mg, Lipitor 40 mg daily Orthostatic hypotension, resolved Imaging: CT abdomen and pelvis: Severe pelvic floor prolapse, bladder not well visualized, moderate to severe right and moderate left hydronephrosis, left adre nal adenoma Data Review: Labs reviewed from today include CBC and basic metabolic profile which are remarkable for white blood cell count 22, hemoglobin 11, platelets 115, sodium 134, chloride 110, carbon dioxide 9, BUN 65, creatinine 4.58, AST 47, ALT 41 Iron studies demonstrated a TSAT of 5.49 with a ferritin of 624 associated with a B12 of 1416. Folic acid normal. C. difficile negative. DVT prophylaxis: Heparin 5000 units 3 times daily Anticipated discharge date: Pending clinical course Anticipated discharge place: Pending clinical course This dictation was prepared using [employer] voice recognition software. Though every attempt is made to correct errors during dictation some may still exist. Objective - Vital Signs Vital signs: Vital Signs Temp 98.6 F 01/27/24 16:59 Pulse 84 01/27/24 16:59 Resp 18 01/27/24 16:59 BP 135/81 01/27/24 16:59 Pulse Ox 96 01/27/24 16:59 FiO2 Intake & Output 01/26/24 01/27/24 01/27/24 18:59 06:59 18:59 Intake Total 1080 20 240 Output Total 300 200 Balance 780 -180 240 Weight 60.781 kg Intake: IV 20 Invasive Line 1 10 Invasive Line 2 10 Intake, IV Titration 900 Amount Sodium Chloride 0.9% 1, 900 000 ml @ 75 mls/hr IV . [id number] [facility] Rx#:[id number] Oral 180 240 Output: Urine 300 200 Uretheral (Guzman) 300 Other: Voiding Method Indwelling Catheter Indwelling Catheter # Bowel Movements 2 2 - Labs CBC & Chem 7: 01/27/24 06:46 01/27/24 06:46 Labs: Abnormal Lab Results - Last 24 Hours (Table) 01/26/24 01/26/24 01/27/24 Range/Units 11:27 11:27 06:46 WBC (3.8-10.6) k/uL RBC (3.80-5.40) m/uL Hgb (11.4-16.0) gm/dL Plt Count (150-450) k/uL Sodium (137-145) mmol/L Chloride (98-107) mmol/L Carbon Dioxide (22-30) mmol/L BUN (7-17) mg/dL Creatinine (0.52-1.04) mg/dL Calcium (8.4-10.2) mg/dL Iron 10 L (50-170) UG/DL TIBC 182 L (228-460) UG/DL % Saturation 5.49 L (12.00-45.00) Transferrin 130.0 L (204.0-354.0) mg/dL Ferritin 624.0 H (10.0-291.0) ng/mL Delta Bilirubin 0.5 H (0.0-0.2) mg/dL AST 46 H (14-36) U/L ALT 41 H (4-34) U/L Alkaline Phosphatase 242 H (38-126) U/L Total Protein 5.1 L (6.3-8.2) g/dL Total Protein (PEP) 5.1 L (6.2-8.2) g/dL Albumin 2.4 L (3.5-5.0) g/dL Vitamin B12 1416.0 H (200.0-944.0) pg/mL IgG 674.0 L (700.0-1600.0) mg/dL 01/27/24 01/27/24 Range/Units 06:46 06:46 WBC 22.3 H (3.8-10.6) k/uL RBC 3.67 L (3.80-5.40) m/uL Hgb 11.0 L (11.4-16.0) gm/dL Plt Count 115 L (150-450) k/uL Sodium 134 L (137-145) mmol/L Chloride 110 H (98-107) mmol/L Carbon Dioxide 9 L* (22-30) mmol/L BUN 65 H (7-17) mg/dL Creatinine 4.58 H (0.52-1.04) mg/dL Calcium 6.9 L (8.4-10.2) mg/dL Iron (50-170) UG/DL TIBC (228-460) UG/DL % Saturation (12.00-45.00) Transferrin (204.0-354.0) mg/dL Ferritin (10.0-291.0) ng/mL Delta Bilirubin (0.0-0.2) mg/dL AST 47 H (14-36) U/L ALT 41 H (4-34) U/L Alkaline Phosphatase 243 H (38-126) U/L Total Protein 5.1 L (6.3-8.2) g/dL Total Protein (PEP) (6.2-8.2) g/dL Albumin 2.4 L (3.5-5.0) g/dL Vitamin B12 (200.0-944.0) pg/mL IgG (700.0-1600.0) mg/dL Microbiology - Last 24 Hours (Table) 01/25/24 18:30 Blood Culture Gram Stain - Preliminary Blood Blood Culture - Preliminary Gram Neg Bacilli 01/25/24 18:40 Blood Culture Gram Stain - Preliminary Blood Blood Culture - Preliminary Gram Neg Bacilli Molecular ID
[2024-01-27] MEDS: BENZONATATE 100 MG CAP PO PRN (19:55)
[2024-01-28] MEDS: DEXTROSE 5% IN WATER 1,000 ML with SODIUM BICARB (1 MEQ/ML) 150 ML IV SCH (07:06)
[2024-01-28 10:14] LABS: African American GFR (CKD) 28 (>60 ml/min/1.73 sqM); Anion Gap 10 mmol/L; Blood Urea Nitrogen 46 mg/dL (7-17); Calcium 7.5 mg/dL (8.4-10.2); Carbon Dioxide 22 mmol/L (22-30); Chloride 107 mmol/L (98-107); Glucose 123 mg/dL (74-99); Non-African American GFR(CKD) 24 (>60 ml/min/1.73 sqM); Potassium 2.9 mmol/L (3.5-5.1); Sodium 139 mmol/L (137-145)
[2024-01-28 10:17] LABS: Basophils # (A) 0.1 k/uL (0-0.2); Basophils % (A) 0 %; Eosinophils # (A) 0.2 k/uL (0-0.7); Eosinophils % (A) 1 %; HCT 30.9 % (34.0-46.0); HGB 10.3 gm/dL (11.4-16.0); Lymphocytes % (A) 6 %; MCH 30.1 pg (25.0-35.0); MCHC 33.2 g/dL (31.0-37.0); MCV 90.9 fL (80.0-100.0); Mean Platelet Volume 9.4; Monocytes # (A) 0.6 k/uL (0-1.0); Monocytes % (A) 4 %; Neutrophils # (A) 15.5 k/uL (1.3-7.7); Neutrophils % (A) 87 %; Platelet Count 128 k/uL (150-450); RDW 13.4 % (11.5-15.5); WBC 17.7 k/uL (3.8-10.6)
[2024-01-28] MEDS: POTASSIUM CHLORIDE 20 MEQ in WATER FOR INJECTION 1 100ML.BAG IVPB STA (11:13)
[2024-01-28] MEDS: SODIUM CHLORIDE 0.9% 1,000 ML IV SCH (11:13)
[2024-01-28] MEDS: POTASSIUM CHLORIDE ER 20 MEQ TAB.ER PO STA (11:14)
--- NOTE | 2024-01-28 12:04 | P.PN ---
Subjective patient is seen for follow-up for acute kidney injury. Status post Guzman catheter placement for obstructive uropathy. maintained on IV bicarb. Serum creatinine improved to 2.0 today. Acidosis has improved with CO2 at 22 and potassium is 2.9. Overall feeling better. Objective - Vital Signs Vital signs: Vital Signs Temp 98.2 F 01/28/24 11:17 Pulse 79 01/28/24 11:17 Resp 16 01/28/24 11:17 BP 130/84 01/28/24 11:17 Pulse Ox 97 01/28/24 11:17 FiO2 Intake & Output 01/27/24 01/28/24 01/28/24 18:59 06:59 18:59 Intake Total 240 20 118 Output Total 2250 Balance 240 -2230 118 Intake: IV 20 Invasive Line 1 10 Invasive Line 2 10 Oral 240 118 Output: Urine 2250 Other: Voiding Method Indwelling Catheter Indwelling Catheter Indwelling Catheter # Bowel Movements 2 - Exam patient is awake, comfortable, no acute distress Examination of the heart S1 and S2 Examination of the lungs bilateral breath sounds are heard Abdomen is soft nontender Examination of lower extremities shows 1+ edema [employer] OPERATOR exam grossly intact. - Labs CBC & Chem 7: 01/28/24 09:29 01/28/24 09:29 Labs: Abnormal Lab Results - Last 24 Hours (Table) 01/28/24 01/28/24 Range/Units 09:29 09:29 WBC 17.7 H (3.8-10.6) k/uL RBC 3.40 L (3.80-5.40) m/uL Hgb 10.3 L (11.4-16.0) gm/dL Hct 30.9 L (34.0-46.0) % Plt Count 128 L (150-450) k/uL Neutrophils # 15.5 H (1.3-7.7) k/uL Potassium 2.9 L (3.5-5.1) mmol/L BUN 46 H (7-17) mg/dL Creatinine 2.07 H (0.52-1.04) mg/dL Glucose 123 H (74-99) mg/dL Calcium 7.5 L (8.4-10.2) mg/dL Microbiology - Last 24 Hours (Table) 01/26/24 13:07 Urine Culture - Preliminary Urine,Voided Gram Neg Bacilli 01/25/24 18:30 Blood Culture Gram Stain - Preliminary Blood Blood Culture - Preliminary Gram Neg Bacilli 01/25/24 18:40 Blood Culture Gram Stain - Preliminary Blood Blood Culture - Preliminary Gram Neg Bacilli Molecular ID Assessment and Plan Assessment: 1. Acute kidney injury secondary to obstructive uropathy and ATN from low blood pressure and underlying infection. Currently maintained on IV fluids with improving renal function. Ultrasound shows bilateral hydronephrosis. UA shows multiple hyaline casts and WBCs more than 182. 2. Bilateral hydronephrosis with prolapsed bladder, currently with indwelling Guzman catheter. Urology on consult 3. Non-anion gap metabolic acidosis associated with acute kidney injury and diarrhea, currently improved status post bicarb drip. 4. Hypokalemia associated with IV bicarb and intracellular shifts as well as decreased oral intake Plan: can DC IV bicarb Replace potassium Switch to Ringer lactate in view of underlying metabolic acidosis Repeat labs in a.m. Continue with indwelling Guzman catheter.
[2024-01-28 12:49] LABS: Free Kappa Lt Chain Qnt, Serum 5.78 mg/dL (0.33-1.94)
[2024-01-28 12:49] LABS: Free Kappa Lt Chain Qnt, Urine 21.23 mg/dL (0.00-3.29); Free Lambda Lt Chain Qt, Urine 9.64 mg/dL (0.00-0.38)
--- NOTE | 2024-01-28 14:06 | P.PN ---
Subjective HISTORY OF PRESENT ILLNESS: This is a 68-year-old female with a past medical history significant for hypertension and hyperlipidemia. Patient follows in the office with Dr. Tate. We have been asked to see the patient in consultation for elevated troponins. Patient examined at the bedside in the emergency room. Patient states she presented to the hospital with a chief complaint of dizziness. Patient states that she felt like her room was spinning. She states that she was so dizzy she was unable to get out of bed. Patient denies having any chest pain or pressure. She denies any shortness of breath. Patient was found to have significant leukocytosis with a white count in the 40s. Patient denies any history of cancer. Patient was also found to be in acute renal failure with a creatinine of 2.34. DIAGNOSTICS: - EKG reveals sinus mechanism with no signs of acute ischemia - Chest xray cardiomegaly with congestion and edema, possible small pleural effusions. Correlate clinically for moderate CHF Ultrasound kidneys and bladder: Moderate right hydronephrosis with trace debris suggested, mild to moderate left hydronephrosis, left renal cyst largest 1.6 cm and bladder not well-visualized nondistended. CT brain: Negative for acute bleed or mass effect. Acute sinusitis involving the maxillary sinuses. - Laboratory data: WBC 42.5. Hemoglobin 10.5. Platelet count 155. Sodium 135. Potassium 3.6. BUN 63. Creatinine 3.47. Lactic acid 2.7. Bilirubin 1.0. AST 45. ALT 50. Alkaline phosphatase 198. Troponin 0.252. 0.233. 0.161. - Current home cardiac medications include lisinopril 10 mg daily, atorvastatin 40 mg daily, and aspirin 81 mg daily. -Patient underwent Lexiscan stress test in the office on 12/28/2023 which was negative for ischemia. LV function with ejection fraction estimated at 62%. 01/26 Patient has been running fevers this morning at 100.9, blood pressure 118/73 and heart rate in the 90s, pulse ox 96% on room air. Patient does complain of cough. No chest pain. She has been seen by hematology regarding leukocytosis for suspected leukemoid reaction secondary to underlying colitis but this was not identified on the CT. Patient is having worsening renal function and acidosis. Repeat blood work reveals WBC 22, hemoglobin 11, platelet count 115. CO2 9. Sodium 134, potassium 3.5. BUN 65 creatinine 4.58. Liver functions test are stable. Patient is followed by nephrology and consult has been added for urology regarding bilateral hydronephrosis and prolapsed bladder. Echocardiogram reveals EF of 60 to 65%. Results reviewed with the patient. 01/28/2024 Patient examined this morning at the bedside. Patient denies chest pain or pressure. She denies shortness of breath. Patient's white count has improved. WBC today 17.7. Potassium low today at 2.9. Kidney function has improved with a creatinine of 2.07 down from 4.58. Vital signs are stable. PHYSICAL EXAM: VITAL SIGNS: Reviewed. GENERAL: Well-developed in no acute distress. NECK: Supple. No JVD or thyromegaly LUNGS: Respirations even and unlabored. Lungs essentially clear to auscultation bilaterally. HEART: Regular rate and rhythm. S1 and S2 heard. EXTREMITIES: Normal range of motion. No clubbing or cyanosis. Peripheral pulses intact. No lower extremity edema ASSESSMENT: Dizziness Acute kidney injury most likely obstructive nephropathy along with ATN Metabolic acidosis Abnormal troponins, flat, not suggestive of acute coronary syndrome, likely secondary to acute renal failure Significant leukocytosis, ruled out underlying malignancy by hematology Minimally elevated LFTs Moderate right hydronephrosis Mild to moderate left hydronephrosis Left renal cyst, largest 1.6 cm Hypertension Hyperlipidemia Former nicotine dependence PLAN: Continue current cardiac medications Continue to monitor renal function Patient is currently stable from a cardiac standpoint with no further inpatient recommendations We will follow on an as-needed basis. Please call with questions or concerns. Nurse practitioner note has been reviewed by physician. Signing provider agrees with the documented findings, assessment, and plan of care documented by EQUIPMENT TECH as a scribe. Objective - Vital Signs Vital signs: Vital Signs Temp 98.2 F 01/28/24 11:17 Pulse 79 01/28/24 11:17 Resp 16 01/28/24 11:17 BP 130/84 01/28/24 11:17 Pulse Ox 97 01/28/24 11:17 FiO2 Intake & Output 01/27/24 01/28/24 01/28/24 18:59 06:59 18:59 Intake Total 240 20 118 Output Total 2250 Balance 240 -2230 118 Intake: IV 20 Invasive Line 1 10 Invasive Line 2 10 Oral 240 118 Output: Urine 2250 Other: Voiding Method Indwelling Catheter Indwelling Catheter Indwelling Catheter # Bowel Movements 2 - Labs CBC & Chem 7: 01/28/24 09:29 01/28/24 09:29 Labs: Abnormal Lab Results - Last 24 Hours (Table) 01/26/24 01/26/24 01/28/24 Range/Units 11:27 13:07 09:29 WBC 17.7 H (3.8-10.6) k/uL RBC 3.40 L (3.80-5.40) m/uL Hgb 10.3 L (11.4-16.0) gm/dL Hct 30.9 L (34.0-46.0) % Plt Count 128 L (150-450) k/uL Neutrophils # 15.5 H (1.3-7.7) k/uL Potassium (3.5-5.1) mmol/L BUN (7-17) mg/dL Creatinine (0.52-1.04) mg/dL Glucose (74-99) mg/dL Calcium (8.4-10.2) mg/dL U Free [place] Light Ch 21.23 H (0.00-3.29) mg/dL U Free Lambda Light Ch 9.64 H (0.00-0.38) mg/dL Free [place] LC, Quant 5.78 H (0.33-1.94) mg/dL Free Lambda LC, Quant 6.90 H (0.57-2.63) mg/dL 01/28/24 Range/Units 09:29 WBC (3.8-10.6) k/uL RBC (3.80-5.40) m/uL Hgb (11.4-16.0) gm/dL Hct (34.0-46.0) % Plt Count (150-450) k/uL Neutrophils # (1.3-7.7) k/uL Potassium 2.9 L (3.5-5.1) mmol/L BUN 46 H (7-17) mg/dL Creatinine 2.07 H (0.52-1.04) mg/dL Glucose 123 H (74-99) mg/dL Calcium 7.5 L (8.4-10.2) mg/dL U Free [place] Light Ch (0.00-3.29) mg/dL U Free Lambda Light Ch (0.00-0.38) mg/dL Free [place] LC, Quant (0.33-1.94) mg/dL Free Lambda LC, Quant (0.57-2.63) mg/dL Microbiology - Last 24 Hours (Table) 01/25/24 18:30 Blood Culture Gram Stain - Final Blood Blood Culture - Final Escherichia coli 01/25/24 18:40 Blood Culture Gram Stain - Final Blood Blood Culture - Final Escherichia coli Molecular ID 01/26/24 13:07 Urine Culture - Preliminary Urine,Voided Gram Neg Bacilli
[2024-01-28] MEDS: LACTATED RINGERS 1,000 ML IV SCH (14:08)
[2024-01-28] MEDS: POTASSIUM CHLORIDE ER 20 MEQ TAB.ER PO ONE (14:09)
--- NOTE | 2024-01-28 17:36 | P.PN ---
Subjective Progress Note Date: 01/28/24 (delayed charting seen at approx 1045) Patient is a 68-year-old female with hypertension, dyslipidemia, and uterus/basilar prolapse who presented to the emergency department with 3 to 4 days of dizziness. Patient had had a knee surgery 3 weeks ago and since that time has had some diarrhea and poor oral intake. On arrival to the ER she was tachycardic with a pulse of 101 and the remainder of her vital signs are within normal limits. Initial laboratory analysis was remarkable for white blood cell count of 47.4, sodium 133, carbon dioxide 17, BUN 56, creatinine 3.24, lactic acid 2.7, total bilirubin 1.7, AST 50, ALT 54, and troponin 0.052. She underwent a CT head which showed acute sinusitis of the maxillary sinus. Patient was admitted for orthostatic hypotension and leukocytosis. She was started on Rocephin in the emergency department. Oncology was consulted to rule out leukemia. She was also started on IV fluids, her lisinopril was held, nephrology was consulted due to her acute kidney injury. Due to her elevated troponin cardiology was consulted. Troponins were trended and flat not consistent with acute coronary syndrome. Cardiology recommended continuing her Lipitor. Echocardiogram was performed which showed ejection fraction 60 to 65% without any wall motion abnormalities. She underwent renal ultrasound which showed moderate right hydronephrosis with mild to moderate left hydronephrosis. Normal gallbladder ultrasound which showed continued moderate hydronephrosis with no gallstones or ductal dilatation. Nephrology recommended urology consult and IV fluids as well as Guzman catheter placement. She was seen by oncology who felt that her leukocytosis is likely secondary to infection and leukemoid reaction. C. difficile was negative. She came back with an E. coli bacteremia in 2 out of 2 cultures. Urinalysis was consistent with urinary tract infection. Urology recommended gynecology consult. She underwent a CT abdomen and pelvis which demonstrated severe pelvic floor prolapse with moderate to severe right and moderate left hydronephrosis, left adrenal adenoma. Seen by ballpoint pens assembler who recommends outpatient prolpase treatment. Patient seen and examined at bedside. She is doing well. Still is feeling slightly off like it is hard to think. Denies any chest pain. Shortness of breath. Nausea, vomiting. No more diarrhea. No other complaints currently. Vital signs reviewed General: Nontoxic, no distress, appears at stated age Cardiovascular: S1S2 reg, no murmur Lungs: CTA bilateral, no rhonchi, no rales, no accessory muscle use Abdominal: Soft, nontender to palpation, no guarding Ext: No gross muscle atrophy, no edema b/l lower extremities, no contractures Neuro: CN II-XI grossly intact, no focal neuro deficits Psych: Alert, oriented, appropriate affect Assessment/Plan: Urinary tract infection with E. coli bacteremia associated with sepsis Acute kidney injury, improving Metabolic acidosis. omproving Bilateral moderate hydronephrosis Bladder and uterine prolapse Transaminitis, stable -Continue with Guzman catheter - LR at 100 cc/hr -Avoid additional nephrotoxic agents, lisinopril on hold -Case discussed with nephrology. Will continue with IV fluids but discontinue D5W with 3 A of bicarb and change to lactated Ringer's -F/U outpatient for prolapse surgery prolapse -Continue with Rocephin 2 g every 24 hours - Await urine CX Leukocytosis likely secondary to infection Normocytic normochromic anemia Thrombocytopenia -Oncology note reviewed: Continue to follow platelets likely secondary to infection and cephalosporin antibiotic. -Follow CBC -Free kappa and lambda chains elevated with elevated free kappa in the urine. Will await further recommendations from oncology -IgG low at 674 Elevated troponin, not consistent with ACS -Cardiology note reviewed: Currently stable will follow on an as-needed basis -Aspirin 81 mg, Lipitor 40 mg daily Hypokalemia -Potassium 40 mill equivalents p.o. x 2, potassium chloride 20 mEq IV piggyback x 1. Orthostatic hypotension, resolved Imaging: None new Data Review: Labs reviewed from today include CBC and basic metabolic profile which are remarkable for white blood cell count 17.7, platelets 128, potassium 2.9, BUN 46, creatinine 2.07. Tmax in the last 24 hours 100.3 DVT prophylaxis: Heparin 5000 units 3 times daily Anticipated discharge date: Pending clinical course Anticipated discharge place: Pending clinical course This dictation was prepared using [employer] voice recognition software. Though every attempt is made to correct errors during dictation some may still exist. Objective - Vital Signs Vital signs: Vital Signs Temp 98.4 F 01/28/24 16:00 Pulse 93 01/28/24 16:00 Resp 14 01/28/24 16:00 BP 146/84 01/28/24 16:00 Pulse Ox 94 L 01/28/24 16:00 FiO2 Intake & Output 01/27/24 01/28/24 01/28/24 18:59 06:59 18:59 Intake Total 240 20 358 Output Total 2250 Balance 240 -2230 358 Intake: IV 20 Invasive Line 1 10 Invasive Line 2 10 Oral 240 358 Output: Urine 2250 Other: Voiding Method Indwelling Catheter Indwelling Catheter Indwelling Catheter # Bowel Movements 2 - Labs CBC & Chem 7: 01/28/24 09:29 01/28/24 09:29 Labs: Abnormal Lab Results - Last 24 Hours (Table) 01/26/24 01/26/24 01/28/24 Range/Units 11:27 13:07 09:29 WBC 17.7 H (3.8-10.6) k/uL RBC 3.40 L (3.80-5.40) m/uL Hgb 10.3 L (11.4-16.0) gm/dL Hct 30.9 L (34.0-46.0) % Plt Count 128 L (150-450) k/uL Neutrophils # 15.5 H (1.3-7.7) k/uL Potassium (3.5-5.1) mmol/L BUN (7-17) mg/dL Creatinine (0.52-1.04) mg/dL Glucose (74-99) mg/dL Calcium (8.4-10.2) mg/dL U Free [place] Light Ch 21.23 H (0.00-3.29) mg/dL U Free Lambda Light Ch 9.64 H (0.00-0.38) mg/dL Free [place] LC, Quant 5.78 H (0.33-1.94) mg/dL Free Lambda LC, Quant 6.90 H (0.57-2.63) mg/dL 01/28/24 Range/Units 09:29 WBC (3.8-10.6) k/uL RBC (3.80-5.40) m/uL Hgb (11.4-16.0) gm/dL Hct (34.0-46.0) % Plt Count (150-450) k/uL Neutrophils # (1.3-7.7) k/uL Potassium 2.9 L (3.5-5.1) mmol/L BUN 46 H (7-17) mg/dL Creatinine 2.07 H (0.52-1.04) mg/dL Glucose 123 H (74-99) mg/dL Calcium 7.5 L (8.4-10.2) mg/dL U Free [place] Light Ch (0.00-3.29) mg/dL U Free Lambda Light Ch (0.00-0.38) mg/dL Free [place] LC, Quant (0.33-1.94) mg/dL Free Lambda LC, Quant (0.57-2.63) mg/dL Microbiology - Last 24 Hours (Table) 01/25/24 18:30 Blood Culture Gram Stain - Final Blood Blood Culture - Final Escherichia coli 01/25/24 18:40 Blood Culture Gram Stain - Final Blood Blood Culture - Final Escherichia coli Molecular ID 01/26/24 13:07 Urine Culture - Preliminary Urine,Voided Gram Neg Bacilli
[2024-01-28] MEDS: BENZOCAINE/MENTHOL LOZENG 1 EACH LOZENGE MUCOUS MEM PRN (22:42)
[2024-01-28] MEDS: MORPHINE SULFATE 2 MG/ML SYRINGE IVP STA (23:48)
--- NOTE | 2024-01-29 09:26 | CDI ---
Documentation Clarification Form Date: 01/29/2024 From: Millicent Galvez Phone: [phone] Admit Date: 01/25/2024 06:33:00 PM Patient Name: Anel Dutton Visit Number: [id number] Discharge Date: ATTENTION: The Clinical Documentation Specialists (CDI) and [facility] Coding Staff appreciate your assistance in clarifying documentation. Please respond to the clarification below the line at the bottom and electronically sign. The CDI & [facility] Coding staff will review the response and follow-up if needed. Please note: Queries are made part of the Legal Health Record. If you have any questions, please contact the author of this message via ITS. Dr. Denise Daniel: Malnutrition is documented in the H&P on 01/25. Additional clarification regarding the severity of malnutrition is requested. History/Risk Factors: HTN, left total knee arthroplasty x3 weeks who presents with positional dizziness Clinical Indicators: 01/25 H&P, HPI: "She has features suggestive of wasting or protein calorie malnutrition with hollow temples and guttering of the dorsum of her bilateral hands however she claims that she always looks like that since she was a little kid." 01/24 Height: 5ft Weight: 60.78 kg BMI: 26.2 01/24 Total Protein: 5.3, 5.2, 5.1 Treatment: Strict I&O, Renal Diet, Please clarify the severity of malnutrition, if known: [ ] Mild Protein-Calorie Malnutrition [ ] Moderate Protein-Calorie Malnutrition [ ] Severe Protein-Calorie Malnutrition [ x ] Other condition, please specify appears to have adequate intake I dont see signs of wasting and has normal BMI [ ] Unable to Determine Reference: Using the ASPEN Guidelines, Undernutrition (Malnutrition) is characterized by at least two of the following six findings. The severity can be determined based on the criteria listed below. Malnutrition Characteristics for Moderate and Severe Malnutrition Type of Malnutrition Acute Illness or Injury Chronic Illness Degree of Malnutrition Non-severe (moderate) Malnutrition Severe Malnutrition Non-severe (moderate) Malnutrition Severe Malnutrition Energy Intake <75% for >7 days = 50% for = 5 days <75% for = 1 month =75% for = 1 month Weight Loss 1-2% in one week, 5% in 1 month, 7.5% in 3 months 2% in one week, >5% in 1 month, >7.5% in 3 months 5% in one month, 7.5% in 3 months, 10% in 6 months, 20% in 1 year >5% in one month, >7.5% in 3 months, >10% in 6 months, >20% in 1 year Body Fat Wasting Mild Moderate Mild Severe Muscle Wasting Mild Moderate Mild Severe Presence of Edema Mild Moderate to Severe Mild Severe Air Conditioning Engineer Strength Not applicable Measurably Reduced Not applicable Measurably Reduced Source: Naina ServinV, Felisa P, Marlo G, et al. Consensus statement: Academy of Nutrition and Dietetics and [place] Society for Parenteral and Enteral Nutrition: characteristics recommended for the identification and documentation of adult malnutrition (undernutrition).JPJAVIER J Parenter Enteral Nutr. 2012;36(3):275-283. MTDD
[2024-01-29 11:34] LABS: African American GFR (CKD) 52 (>60 ml/min/1.73 sqM); Anion Gap 7 mmol/L; Blood Urea Nitrogen 30 mg/dL (7-17); Calcium 7.8 mg/dL (8.4-10.2); Carbon Dioxide 24 mmol/L (22-30); Chloride 109 mmol/L (98-107); Glucose 95 mg/dL (74-99); Non-African American GFR(CKD) 45 (>60 ml/min/1.73 sqM); Sodium 140 mmol/L (137-145)
[2024-01-29] MEDS: amLODIPine 5 MG TAB PO SCH (11:58)
--- NOTE | 2024-01-29 17:07 | P.PN ---
Subjective Progress Note Date: 01/29/24 (delayed charting seen at 0930) Patient is a 68-year-old female with hypertension, dyslipidemia, and uterus/basilar prolapse who presented to the emergency department with 3 to 4 days of dizziness. Patient had had a knee surgery 3 weeks ago and since that time has had some diarrhea and poor oral intake. On arrival to the ER she was tachycardic with a pulse of 101 and the remainder of her vital signs are within normal limits. Initial laboratory analysis was remarkable for white blood cell count of 47.4, sodium 133, carbon dioxide 17, BUN 56, creatinine 3.24, lactic acid 2.7, total bilirubin 1.7, AST 50, ALT 54, and troponin 0.052. She underwent a CT head which showed acute sinusitis of the maxillary sinus. Patient was admitted for orthostatic hypotension and leukocytosis. She was s tarted on Rocephin in the emergency department. Oncology was consulted to rule out leukemia. She was also started on IV fluids, her lisinopril was held, nephrology was consulted due to her acute kidney injury. Due to her elevated troponin cardiology was consulted. Troponins were trended and flat not consistent with acute coronary syndrome. Cardiology recommended continuing her Lipitor. Echocardiogram was performed which showed ejection fraction 60 to 65% without any wall motion abnormalities. She underwent renal ultrasound which showed moderate right hydronephrosis with mild to moderate left hydronephrosis. Normal gallbladder ultrasound which showed continued moderate hydronephrosis with no gallstones or ductal dilatation. Nephrology recommended urology consult and IV fluids as well as Mejias catheter placement. She was seen by oncology who felt that her leukocytosis is likely secondary to infection and leukemoid reaction. C. difficile was negative. She came back with an E. coli bacteremia in 2 out of 2 cultures. Urinalysis was consistent with urinary tract infection. Urology recommended gynecology consult. She underwent a CT abdomen and pelvis which demonstrated severe pelvic floor prolapse with moderate to severe right and moderate left hydronephrosis, left adrenal adenoma. Seen by marine electronics technician who recommends outpatient prolpase treatment. She continues to feel tired and a little bit foggy. She wishes she was feeling better today. She has no other complaints currently. We discussed that she has been through a lot with renal failure and bacteremia and that she should start to feel better in the next 24 to 48 hours. Vital signs reviewed General: Nontoxic, no distress, appears at stated age Cardiovascular: S1S2 reg, no murmur Lungs: CTA bilateral, no rhonchi, no rales, no accessory muscle use Abdominal: Soft, nontender to palpation, no guarding Ext: No gross muscle atrophy, no edema b/l lower extremities, no contractures Neuro: CN II-XI grossly intact, no focal neuro deficits Psych: Alert, oriented, appropriate affect Assessment/Plan: E. Coli Urinary tract infection with E. coli bacteremia associated with sepsis Acute kidney injury, improving Metabolic acidosis. resolved Bilateral moderate hydronephrosis Bladder and uterine prolapse Transaminitis, stable -Continue with Mejias catheter - LR at 100 cc/hr -Avoid additional nephrotoxic agents, lisinopril on hold -Await further nephrology recommendations -F/U outpatient for prolapse surgery prolapse with BELT REPAIRER. Conitnue with mejias on discharge. -Continue with Rocephin 2 g every 24 hours. Plan for transition to keflex on discharge rto complete a 14 days course in totoal Leukocytosis likely secondary to infection Normocytic normochromic anemia Thrombocytopenia -Await further oncology recommendations, case discussed with Dr. Wooten and light chain ratios are normal. -Follow CBC Hypertension -Will continue to hold lisinopril given degree of renal dysfunction earlier this hospital stay. Start Norvasc 5 mg daily. Continue to follow blood pressures Elevated troponin, not consistent with ACS - cardio following as needed -Aspirin 81 mg, Lipitor 40 mg daily Hypokalemia, resolved Orthostatic hypotension, resolved Imaging: None new Data Review: Urine culture E. coli sensitive to ceftriaxone -Labs reviewed from today include basic metabolic profile which is remarkable for BUN 30 and creatinine 1.25 DVT prophylaxis: Heparin 5000 units 3 times daily Anticipated discharge date: 24-[address]: 24-48 hours This dictation was prepared using [employer] voice recognition software. Though every attempt is made to correct errors during dictation some may still exist. Objective - Vital Signs Vital signs: Vital Signs Temp 98.1 F 01/29/24 15:55 Pulse 75 01/29/24 15:55 Resp 18 01/29/24 15:55 BP 138/78 01/29/24 15:55 Pulse Ox 95 01/29/24 15:55 FiO2 Intake & Output 01/28/24 01/29/24 01/29/24 18:59 06:59 18:59 Intake Total 358 240 Output Total 1200 2000 800 Balance -842 -2000 -560 Intake: Oral 358 240 Output: Urine 1200 2000 800 Other: Voiding Method Indwelling Catheter Indwelling Catheter Indwelling Catheter # Bowel Movements 1 - Labs CBC & Chem 7: 01/28/24 09:29 01/29/24 09:31 Labs: Abnormal Lab Results - Last 24 Hours (Table) 01/29/24 Range/Units 09:31 Chloride 109 H (98-107) mmol/L BUN 30 H (7-17) mg/dL Creatinine 1.25 H (0.52-1.04) mg/dL Calcium 7.8 L (8.4-10.2) mg/dL Microbiology - Last 24 Hours (Table) 01/26/24 13:07 Urine Culture - Final Urine,Voided Escherichia coli
--- NOTE | 2024-01-29 19:27 | P.PN ---
Subjective patient is seen for follow-up for acute kidney injury. Status post Guzman catheter placement for obstructive uropathy. maintained on Ringer lactate at 100 cc an hour Serum creatinine improved to 1.2 today. Overall feeling better. Objective - Vital Signs Vital signs: Vital Signs Temp 98.1 F 01/29/24 15:55 Pulse 75 01/29/24 15:55 Resp 18 01/29/24 15:55 BP 138/78 01/29/24 15:55 Pulse Ox 95 01/29/24 15:55 FiO2 Intake & Output 01/29/24 01/29/24 01/30/24 06:59 18:59 06:59 Intake Total 240 Output Total 1999 1450 Balance -1999 Intake: Oral 240 Output: Urine 1999 1449 Other: Voiding Method Indwelling Catheter Indwelling Catheter # Bowel Movements 1 1 - Exam patient is awake, comfortable, no acute distress Examination of the heart S1 and S2 Examination of the lungs bilateral breath sounds are heard Abdomen is soft nontender Examination of lower extremities shows 1+ edema DRAMATIC CRITIC exam grossly intact. - Labs CBC & Chem 7: 01/28/24 09:29 01/29/24 09:31 Labs: Abnormal Lab Results - Last 24 Hours (Table) 01/29/24 Range/Units 09:31 Chloride 109 H (98-107) mmol/L BUN 30 H (7-17) mg/dL Creatinine 1.25 H (0.52-1.04) mg/dL Calcium 7.8 L (8.4-10.2) mg/dL Microbiology - Last 24 Hours (Table) 01/26/24 13:07 Urine Culture - Final Urine,Voided Escherichia coli Assessment and Plan Assessment: 1. Acute kidney injury secondary to obstructive uropathy and ATN from low blood pressure and underlying infection. Currently maintained on IV fluids with improving renal function. Ultrasound shows bilateral hydronephrosis. UA shows multiple hyaline casts and WBCs more than 182. 2. Bilateral hydronephrosis with prolapsed bladder, currently with indwelling Guzman catheter. Urology on consult 3. Non-anion gap metabolic acidosis associated with acute kidney injury and diarrhea, currently improved status post bicarb drip. 4. Hypokalemia associated with IV bicarb and intracellular shifts as well as decreased oral intake, improved Plan: Decrease IV fluids Continue with indwelling Guzman catheter.
[2024-01-29 20:29] LABS: Albumin 3.05 g/dL (3.80-4.90)
[2024-01-29] MEDS: hydrALAZINE HCL 25 MG TAB PO STA (22:30)
[2024-01-29] MEDS: ONDANSETRON 4 MG/2 ML VIAL IVP STA (22:30)
[2024-01-30 07:21] LABS: HCT 29.1 % (34.0-46.0); HGB 9.6 gm/dL (11.4-16.0); MCHC 32.8 g/dL (31.0-37.0); MCV 91.6 fL (80.0-100.0); Mean Platelet Volume 8.7; Platelet Count 205 k/uL (150-450); RBC 3.18 m/uL (3.80-5.40); RDW 13.5 % (11.5-15.5); WBC 18.2 k/uL (3.8-10.6)
[2024-01-30 07:39] LABS: African American GFR (CKD) 57 (>60 ml/min/1.73 sqM); Anion Gap 6 mmol/L; Blood Urea Nitrogen 20 mg/dL (7-17); Carbon Dioxide 28 mmol/L (22-30); Chloride 106 mmol/L (98-107); Glucose 89 mg/dL (74-99); Non-African American GFR(CKD) 49 (>60 ml/min/1.73 sqM); Potassium 3.7 mmol/L (3.5-5.1); Sodium 140 mmol/L (137-145)
--- NOTE | 2024-01-30 10:11 | XR ---
EXAMINATION TYPE: XR chest 2V DATE OF EXAM: 01/30/2024 9:34 AM CLINICAL INDICATION:Female, 68 years old with history of cough; PHH COMPARISON: None TECHNIQUE: XR chest 2V Frontal and lateral views of the chest. FINDINGS: Lungs/Pleura: There is no evidence of pleural effusion, focal consolidation, or pneumothorax. Pulmonary vascularity: Unremarkable. Heart/mediastinum: Cardiomediastinal silhouette is unremarkable. Musculoskeletal: No acute osseous pathology. IMPRESSION: No acute cardiopulmonary disease/process.
--- NOTE | 2024-01-30 10:26 | CT ---
EXAMINATION TYPE: CT brain wo con CT DLP: 1085.3 mGycm, Automated exposure control for dose reduction was used. DATE OF EXAM: 01/30/2024 9:42 AM COMPARISON: 01/25/2024. CLINICAL INDICATION:Female, 68 years old with history of confusion, TECHNIQUE: Brain: Axial CT images of the brain were obtained with coronal and sagittal reformats created and rev iewed. Contrast used: None. Oral contrast used: None. FINDINGS: Brain: Extra-axial spaces: No abnormal extra-axial fluid collections. Ventricular system: Within normal limits Cerebral parenchyma: No acute intraparenchymal hemorrhage or mass effect. The jones-white junction is well differentiated. Cerebellum: Unremarkable. Mass effect: No evidence of midline shift. Intracranial vasculature: Atherosclerotic calcifications of the intracranial vessels. Soft tissues: Normal. Calvarium/osseous structures: No depressed skull fracture. Paranasal sinuses and mastoid air cells: Moderate to severe scattered paranasal sinus disease. Visualized orbits: Orbital contents are intact. IMPRESSION: 1. No acute intracranial process. 2. Moderate scattered paranasal sinus disease.
--- NOTE | 2024-01-30 11:33 | P.PN ---
Subjective patient is seen for follow-up for acute kidney injury. Status post Guzman catheter placement for obstructive uropathy. maintained on Ringer lactate at 50 cc an hour Serum creatinine improved to 1.1 today. complaining of feeling tired today. Objective - Vital Signs Vital signs: Vital Signs Temp 98.4 F 01/30/24 08:17 Pulse 85 01/30/24 08:17 Resp 17 01/30/24 08:17 BP 154/84 01/30/24 08:17 Pulse Ox 95 01/30/24 08:17 FiO2 Intake & Output 01/29/24 01/30/24 01/30/24 18:59 06:59 18:59 Intake Total 240 540 Output Total 1450 1450 Balance -1210 -910 Intake: Intake, IV Titration 300 Amount Lactated Ringers 1,000 ml 300 @ 50 mls/hr IV .Q20H [facility] Rx#:[id number] Oral 240 240 Output: Urine 1450 1450 Other: Voiding Method Indwelling Catheter Indwelling Catheter # Bowel Movements 1 - Exam patient is awake, comfortable, no acute distress Examination of the heart S1 and S2 Examination of the lungs bilateral breath sounds are heard Abdomen is soft nontender Examination of lower extremities shows 1+ edema CROSSBAR FRAME WIRER exam grossly intact. - Labs CBC & Chem 7: 01/30/24 06:34 01/30/24 06:34 Labs: Abnormal Lab Results - Last 24 Hours (Table) 01/26/24 01/29/24 01/30/24 Range/Units 11:27 09:31 06:34 WBC 18.2 H (3.8-10.6) k/uL RBC 3.18 L (3.80-5.40) m/uL Hgb 9.6 L (11.4-16.0) gm/dL Hct 29.1 L (34.0-46.0) % Chloride 109 H (98-107) mmol/L BUN 30 H (7-17) mg/dL Creatinine 1.25 H (0.52-1.04) mg/dL Calcium 7.8 L (8.4-10.2) mg/dL Albumin (PEP) 3.05 L (3.80-4.90) g/dL Okquw-4-Ejlzrropp 0.92 H (0.10-0.40) g/dL Ylqxj-4-Bmdmijkoo 1.25 H (0.60-1.00) g/dL 01/30/24 Range/Units 06:34 WBC (3.8-10.6) k/uL RBC (3.80-5.40) m/uL Hgb (11.4-16.0) gm/dL Hct (34.0-46.0) % Chloride (98-107) mmol/L BUN 20 H (7-17) mg/dL Creatinine 1.15 H (0.52-1.04) mg/dL Calcium 8.0 L (8.4-10.2) mg/dL Albumin (PEP) (3.80-4.90) g/dL Iihar-2-Pobzqyowf (0.10-0.40) g/dL Cstsu-0-Bopudfxpl (0.60-1.00) g/dL Microbiology - Last 24 Hours (Table) 01/26/24 13:07 Urine Culture - Final Urine,Voided Escherichia coli Assessment and Plan Assessment: 1. Acute kidney injury secondary to obstructive uropathy and ATN from low blood pressure and underlying infection. Currently maintained on IV fluids with improving renal function. Ultrasound shows bilateral hydronephrosis. UA shows multiple hyaline casts and WBCs more than 182. 2. Bilateral hydronephrosis with prolapsed bladder, currently with indwelling Guzman catheter. Urology on consult. No plans for further intervention at this time. 3. Non-anion gap metabolic acidosis associated with acute kidney injury and diarrhea, currently improved status post bicarb drip. 4. Hypokalemia associated with IV bicarb and intracellular shifts as well as decreased oral intake, improved Plan: continue with IV fluids Encourage increased oral intake Continue with indwelling Guzman catheter.
--- NOTE | 2024-01-30 17:20 | P.PN ---
Subjective Progress Note Date: 01/30/24 (stanley charting seen at 0830) Patient is a 68-year-old female with hypertension, dyslipidemia, and uterus/basilar prolapse who presented to the emergency department with 3 to 4 days of dizziness. Patient had had a knee surgery 3 weeks ago and since that time has had some diarrhea and poor oral intake. On arrival to the ER she was tachycardic with a pulse of 101 and the remainder of her vital signs are within normal limits. Initial laboratory analysis was remarkable for white blood cell count of 47.4, sodium 133, carbon dioxide 17, BUN 56, creatinine 3.24, lactic acid 2.7, total bilirubin 1.7, AST 50, ALT 54, and troponin 0.052. She underwent a CT head which showed acute sinusitis of the maxillary sinus. Patient was admitted for orthostatic hypotension and leukocytosis. She was s tarted on Rocephin in the emergency department. Oncology was consulted to rule out leukemia. She was also started on IV fluids, her lisinopril was held, nephrology was consulted due to her acute kidney injury. Due to her elevated troponin cardiology was consulted. Troponins were trended and flat not consistent with acute coronary syndrome. Cardiology recommended continuing her Lipitor. Echocardiogram was performed which showed ejection fraction 60 to 65% without any wall motion abnormalities. She underwent renal ultrasound which showed moderate right hydronephrosis with mild to moderate left hydronephrosis. Normal gallbladder ultrasound which showed continued moderate hydronephrosis with no gallstones or ductal dilatation. Nephrology recommended urology consult and IV fluids as well as Mejias catheter placement. She was seen by oncology who felt that her leukocytosis is likely secondary to infection and leukemoid reaction. C. difficile was negative. She came back with an E. coli bacteremia in 2 out of 2 cultures. Urinalysis was consistent with urinary tract infection. Urology recommended gynecology consult. She underwent a CT abdomen and pelvis which demonstrated severe pelvic floor prolapse with moderate to severe right and moderate left hydronephrosis, left adrenal adenoma. Seen by MATERIAL MANAGER who recommends outpatient prolpase treatment. Patient seen and examined at bedside. She is feeling very tired today. She continues to have a cough. She continues to have poor appetite. No other complaints currently. Vital signs reviewed General: Nontoxic, no distress, appears at stated age Cardiovascular: S1S2 reg, no murmur Lungs: CTA bilateral, no rhonchi, no rales, no accessory muscle use Abdominal: Soft, nontender to palpation, no guarding Ext: No gross muscle atrophy, no edema b/l lower extremities, no contractures Neuro: CN II-XI grossly intact, no focal neuro deficits Psych: Alert, oriented, appropriate affect Assessment/Plan: E. Coli Urinary tract infection with E. coli bacteremia associated with sepsis Acute kidney injury, improving Metabolic acidosis. resolved Bilateral moderate hydronephrosis Bladder and uterine prolapse Transaminitis, stable -Patient with recurrent pyrexia x 1 on 01/30/2024. Repeat blood cultures obtain ed. Consult ID given her bacteremia. Chest x-ray ordered and reviewed which showed no acute process. CT head ordered and reviewed which showed no acute process. -Continue with Mejias catheter. Plan to keep this on discharge. - LR at 50 cc/hr -Avoid additional nephrotoxic agents, lisinopril on hold -Nephrology note reviewed: Continue with IV fluids and encourage oral fluid intake. -F/U outpatient for prolapse surgery with MATERIAL MANAGER. Continue with mejias on discharge. -Continue with Rocephin 2 g every 24 hours. Plan for transition to keflex on discharge to complete a 14 days course in total Leukocytosis likely secondary to infection Normocytic normochromic anemia Thrombocytopenia -Await further oncology recommendations, case discussed with Dr. Wooten and light chain ratios are normal. -Follow CBC Supine Hypertension with Orthostatic hypotension -Continue with IV fluids as above -Patient is on Norvasc 5 mg daily which may need to be switched but patient had significant resting hypertension on 01/29/2024. -Will continue to hold lisinopril given degree of renal dysfunction earlier this hospital stay. Start Norvasc 5 mg daily. Continue to follow blood pressures Elevated troponin, not consistent with ACS - cardio following as needed -Aspirin 81 mg, Lipitor 40 mg daily Hypokalemia, resolved Imaging: None new Data Review: Labs for today reviewed are CBC and basic metabolic profile which are remarkable for white blood cell count 18.2, hemoglobin 9.6, BUN 20, creatinine 1.15. DVT prophylaxis: Heparin 5000 units 3 times daily Anticipated discharge date: 24-[address]: 24-48 hours This dictation was prepared using [employer] voice recognition software. Though every attempt is made to correct errors during dictation some may still exist. Objective - Vital Signs Vital signs: Vital Signs Temp 98.1 F 01/30/24 13:11 Pulse 82 01/30/24 13:11 Resp 16 01/30/24 13:11 BP 135/79 01/30/24 13:11 Pulse Ox 97 01/30/24 13:11 FiO2 Intake & Output 01/29/24 01/30/24 01/30/24 18:59 06:59 18:59 Intake Total 240 540 Output Total 1450 1450 Balance -1210 -910 Intake: Intake, IV Titration 300 Amount Lactated Ringers 1,000 ml 300 @ 50 mls/hr IV .Q20H [facility] Rx#:[id number] Oral 240 240 Output: Urine 1450 1450 Other: Voiding Method Indwelling Catheter Indwelling Catheter Indwelling Catheter # Bowel Movements 1 - Labs CBC & Chem 7: 01/30/24 06:34 01/30/24 06:34 Labs: Abnormal Lab Results - Last 24 Hours (Table) 01/26/24 01/30/24 01/30/24 Range/Units 11:27 06:34 06:34 WBC 18.2 H (3.8-10.6) k/uL RBC 3.18 L (3.80-5.40) m/uL Hgb 9.6 L (11.4-16.0) gm/dL Hct 29.1 L (34.0-46.0) % BUN 20 H (7-17) mg/dL Creatinine 1.15 H (0.52-1.04) mg/dL Calcium 8.0 L (8.4-10.2) mg/dL Albumin (PEP) 3.05 L (3.80-4.90) g/dL Qepjg-5-Czrywurqh 0.92 H (0.10-0.40) g/dL Qlyhu-7-Sbjrimfzm 1.25 H (0.60-1.00) g/dL
--- NOTE | 2024-01-30 21:47 | P.CONS ---
History of Present Illness - Reason for Consult Consult date: 01/30/24 - History of Present Illness Patient is a 68-year-old female with a past medical history significant for hypertension hyperlipidemia presenting to the hospital about 5 days ago for evaluation of dizziness describing as spinning sensation going on for 3 to 4 days patient has been diagnosed with a complicated UTI and did have evidence of E. coli in the blood in the urine patient workup did include abdominal pelvis CT with evidence of severe pelvic floor prolapse bladder not well delineated and did have associated severe right and moderate left hydronephrosis patient has been evaluated both by urology and DOCK MANAGER service and recommending workup as an outpatient patient did have a fever of 101 F admission and a low-grade fever last night of 100.1 F patient also have a elevated white count of 47.4 thousand admission which is currently down to 18.4 blood and urine has been positive for E. coli which did have resistant pattern including resistance to the ampicillin Unasyn Cipro gentamicin but has been se nsitive to Rocephin. On today's evaluation that is 01/30/2024 patient denies have any fever or any chi lls monitor complaining of feeling weak and dizzy patient denies having any headache or URI symptoms denies any chest pain some shortness of breath occasional cough some nausea but no vomiting some lower abdominal discomfort mostly dull aching mild to moderate without radiation and denies having any diarrhea Past Medical History Past Medical History: Hyperlipidemia, Hypertension History of Any Multi-Drug Resistant Organisms: None Reported Past Surgical History: Orthopedic Surgery Additional Past Surgical History / Comment(s): left knee replacement Past Anesthesia/Blood Transfusion Reactions: No Reported Reaction Past Psychological History: No Psychological Hx Reported Smoking Status: Former smoker Past Alcohol Use History: None Reported Past Drug Use History: None Reported - Past Family History Mother Family Medical History: Cancer Additional Family Medical History / Comment(s): liver CA Father Family Medical History: Cancer Additional Family Medical History / Comment(s): stomach CA Medications and Allergies Home Medications Medication Instructions Recorded Confirmed Type Aspirin EC [Ecotrin Low Dose] 81 mg PO DAILY 01/25/24 01/25/24 History Atorvastatin [Lipitor] 40 mg PO DAILY 01/25/24 01/25/24 History lisinopriL [Prinivil] 10 mg PO DAILY 01/25/24 01/25/24 History Allergies Allergy/AdvReac Type Severity Reaction Status Date / Time No Known Allergies Allergy Verified 01/25/24 14:53 Physical Exam Vitals: Vital Signs Temp Pulse Pulse Pulse Pulse Pulse Resp 01/30/24 08:17 98.4 F 75 75 85 17 01/30/24 00:09 98.1 F 76 01/29/24 23:34 98.3 F 81 18 01/29/24 20:00 100.1 F H 82 18 01/29/24 15:55 98.1 F 75 18 01/29/24 14:00 83 18 01/29/24 11:56 83 18 BP BP BP BP BP Pulse Ox 01/30/24 08:17 127/79 121/77 154/84 95 01/30/24 00:09 148/74 97 01/29/24 23:34 136/74 95 01/29/24 20:00 175/95 96 01/29/24 15:55 138/78 95 01/29/24 14:00 01/29/24 11:56 151/83 96 Intake and Output 01/29/24 01/30/24 01/30/24 22:59 06:59 14:59 Intake Total 540 Output Total 650 1450 Balance -650 -910 Intake: Intake, IV Titration 300 Amount Lactated Ringers 1,000 ml 300 @ 50 mls/hr IV .Q20H [facility] Rx#:[id number] Oral 240 Output: Urine 650 1450 Other: Voiding Method Indwelling Catheter # Bowel Movements 1 Results CBC & Chem 7: 02/01/24 06:19 02/01/24 06:19 Labs: Abnormal Lab Results - Last 24 Hours (Table) 01/26/24 01/29/24 01/30/24 Range/Units 11:27 09:31 06:34 WBC 18.2 H (3.8-10.6) k/uL RBC 3.18 L (3.80-5.40) m/uL Hgb 9.6 L (11.4-16.0) gm/dL Hct 29.1 L (34.0-46.0) % Chloride 109 H (98-107) mmol/L BUN 30 H (7-17) mg/dL Creatinine 1.25 H (0.52-1.04) mg/dL Calcium 7.8 L (8.4-10.2) mg/dL Albumin (PEP) 3.05 L (3.80-4.90) g/dL Phqtv-2-Qhcbuyozp 0.92 H (0.10-0.40) g/dL Ccigf-5-Qnedxhxdm 1.25 H (0.60-1.00) g/dL 01/30/24 Range/Units 06:34 WBC (3.8-10.6) k/uL RBC (3.80-5.40) m/uL Hgb (11.4-16.0) gm/dL Hct (34.0-46.0) % Chloride (98-107) mmol/L BUN 20 H (7-17) mg/dL Creatinine 1.15 H (0.52-1.04) mg/dL Calcium 8.0 L (8.4-10.2) mg/dL Albumin (PEP) (3.80-4.90) g/dL Pzljv-0-Rjrfskiqp (0.10-0.40) g/dL Yguvz-2-Dgrqhetqv (0.60-1.00) g/dL Microbiology - Last 24 Hours (Table) 01/26/24 13:07 Urine Culture - Final Urine,Voided Escherichia coli Assessment and Plan Plan: 1patient admitted to hospital initially with sepsis secondary to complicated UTI in this patient who did have a severe pelvic floor prolapse with evidence of severe right and moderate left hydronephrosis and E. coli UTI as well as bacteremia with some resistant pattern 2-we will advised to go the patient Rocephin 2 g daily as a white count is still elevated, however hopefully will be able to transfer or antibiotic on discharge Multiple question concern answered We will follow on clinical condition and cultures to further adjust medication if needed Thank you for this consultation we will follow the patient along with you Dictation was produced using [employer] dictation software. please excuse any grammatical, word or spelling errors. Time with Patient: Greater than 30 (8)
--- NOTE | 2024-01-30 23:25 | P.PN ---
Subjective Progress Note Date: 01/30/24 At today's visit patient sitting in bedside chair. Reporting persisting fatigue and generalized weakness. Had temperature of 100.1 yesterday, afebrile today. Positive blood and urine cultures, continues on IV antibiotics, ID following. WBC has improved since admission, WBC 18.2, hemoglobin 9.6, platelets 205,000. Objective - Vital Signs Vital signs: Vital Signs Temp 98.4 F 01/30/24 20:00 Pulse 77 01/30/24 20:00 Resp 16 01/30/24 20:00 BP 145/76 01/30/24 20:00 Pulse Ox 96 01/30/24 20:00 FiO2 Intake & Output 01/30/24 01/30/24 01/31/24 06:59 18:59 06:59 Intake Total 540 450 Output Total 1450 1800 Balance -910 -1350 Intake: Intake, IV Titration 300 Amount Lactated Ringers 1,000 ml 300 @ 50 mls/hr IV .Q20H [facility] Rx#:[id number] Oral 240 450 Output: Urine 1450 1800 Other: Voiding Method Indwelling Catheter Indwelling Catheter Indwelling Catheter # Bowel Movements 1 - Constitutional General appearance: Present: no acute distress - EENT Eyes: Present: anicteric sclerae, EOMI ENT: Present: hearing grossly normal - Respiratory Details: breathing is even and unlabored - Cardiovascular Details: skin warm and dry - Integumentary Integumentary: Absent: cyanotic - Neurologic Neurologic: Present: CNII-XII intact - Musculoskeletal Musculoskeletal: Present: strength equal bilaterally - Psychiatric Psychiatric: Present: A&O x's 3 - Labs CBC & Chem 7: 01/30/24 06:34 01/30/24 06:34 Labs: Abnormal Lab Results - Last 24 Hours (Table) 01/30/24 01/30/24 Range/Units 06:34 06:34 WBC 18.2 H (3.8-10.6) k/uL RBC 3.18 L (3.80-5.40) m/uL Hgb 9.6 L (11.4-16.0) gm/dL Hct 29.1 L (34.0-46.0) % BUN 20 H (7-17) mg/dL Creatinine 1.15 H (0.52-1.04) mg/dL Calcium 8.0 L (8.4-10.2) mg/dL Assessment and Plan (1) Diarrhea Current Visit: Yes Status: Acute Priority: Medium Code(s): R19.7 - DIARRHEA, UNSPECIFIED SNOMED Code(s): 71061702 (2) Leukocytosis Current Visit: Yes Status: Acute Priority: Medium Code(s): D72.829 - ELEVATED WHITE BLOOD CELL COUNT, UNSPECIFIED SNOMED Code(s): 430859906 (3) Normocytic anemia Current Visit: Yes Status: Acute Priority: Medium Code(s): D64.9 - ANEMIA, UNSPECIFIED SNOMED Code(s): 078330871 (4) Secondary thrombocytopenia Current Visit: Yes Status: Acute Priority: Medium Code(s): D69.59 - OTHER SECONDARY THROMBOCYTOPENIA SNOMED Code(s): 885640953 Plan: Neutrophilic leukocytosis -WBC noted to be around 42 that is predominantly neutrophilic with metamyelocytes and myelocytes and toxic granulation noted -She denies any constitutional symptoms with no current history of smoking -Exam revealed no evidence of lymphadenopathy with distended abdomen -C. difficile PCR was negative with positive blood cultures growing gram- negative bacilli -CT abdomen/pelvis noted moderate to severe right hydronephrosis and moderate left-sided hydronephrosis in setting of severe pelvic prolapse -White blood cell count following administration of antibiotics has improved since admission. WBC now 18.2 -Her leukocytosis was secondary to leukemoid reaction due to gram-negative bacteremia -I anticipate this will continue to improve with antibiotics -K/L LC ratio normal at 0.83, negative M-Jon. No additional workup from a hematology perspective is required at this time -Acute and long-term management of bacteremia as well as her pelvic prolapse to be determined by primary and DERMATOLOGY PROCEDURAL PHYSICIAN teams, appreciate their assistance Normocytic normochromic anemia -Noted to have hemoglobin of 10.5 on admission -This could be due to inflammation secondary to underlying colitis -Iron studies were consistent with anemia of inflammation due to bacteremia with no evidence of vitamin B12 or folate deficiency -No additional workup required at this time Thrombocytopenia -Platelets now normal at 205,000 today -Likely secondary to bacteremia, which could also be exacerbated by cephalosporin antibiotics -Will continue to monitor platelet counts during her hospitalization -No need for workup for etiology such as heparin-induced thrombocytopenia at this time Diarrhea -Started a week after undergoing left knee replacement surgery -C. difficile PCR negative -Management per primary team
[2024-01-31] MEDS: FUROSEMIDE 10 MG/ML 2 ML VIAL IV ONE (08:41)
[2024-01-31 10:39] LABS: HCT 25.9 % (37.2-46.3); HGB 8.3 g/dL (12.0-15.0); MCH 29.2 pg (27.0-32.0); MCV 91.2 FL (80.0-97.0); Mean Platelet Volume 10.8 FL (9.5-12.2); NRBC Per 100 WBC 0 X 10*3/uL (0.00-0.01); Platelet Count 253 X 10*3/uL (140-440); RBC 2.84 X 10*6/uL (4.10-5.20); RDW 13.7 % (11.5-14.5); WBC 18.88 X 10*3/uL (4.50-10.00)
[2024-01-31 11:06] LABS: BUN/Creat Ratio 12.56 Ratio (12.00-20.00); Blood Urea Nitrogen 22.6 mg/dL (9.0-27.0); Calcium 7.8 mg/dL (8.7-10.3); Carbon Dioxide 26.6 mmol/L (21.6-31.8); Chloride 104 mmol/L (96-109); Glucose 96 mg/dL (70-110); Potassium 3.8 mmol/L (3.5-5.5); Sodium 140 mmol/L (135-145)
--- NOTE | 2024-01-31 11:23 | P.PN ---
Subjective Patient is seen in follow-up for acute kidney injury. Renal function worse with creatinine 1.8 today. Nonoliguric. Receiving IV fluids. Vital signs are stable. General: No acute distress. HEENT: Head exam is unremarkable. LUNGS: No audible rhonchi or wheezes. HEART: Rate and Rhythm are regular. ABDOMEN: Nontender. EXTREMITITES: 1+ edema. Objective - Vital Signs Vital signs: Vital Signs Temp 98.3 F 01/31/24 07:47 Pulse 85 01/31/24 07:47 Resp 16 01/31/24 02:00 BP 159/83 01/31/24 07:47 Pulse Ox 94 L 01/31/24 02:00 FiO2 Intake & Output 01/30/24 01/31/24 01/31/24 18:59 06:59 18:59 Intake Total 450 Output Total 1800 Balance -1350 Weight 66 kg Intake: Oral 450 Output: Urine 1800 Other: Voiding Method Indwelling Catheter Indwelling Catheter Indwelling Catheter # Bowel Movements 1 - Labs CBC & Chem 7: 01/31/24 06:40 01/31/24 06:40 Labs: Abnormal Lab Results - Last 24 Hours (Table) 01/31/24 01/31/24 Range/Units 06:40 06:40 WBC 18.88 H (4.50-10.00) X 10*3/uL RBC 2.84 L (4.10-5.20) X 10*6/uL Hgb 8.3 L (12.0-15.0) g/dL Hct 25.9 L (37.2-46.3) % Creatinine 1.8 H (0.6-1.5) mg/dL Est GFR (CKD-EPI) 30 L (>=60) Calcium 7.8 L (8.7-10.3) mg/dL Assessment and Plan Plan: Assessment: 1. Acute kidney injury secondary to obstructive uropathy and ATN from severe sepsis. Creatinine peaked at 4.5 at this admission and was down to 1.15 yesterday. 1.8 today. Unknown baseline renal function. 2. Bilateral hydronephrosis with prolapsed bladder. Has Guzman catheter. Urology following. 3. Metabolic acidosis secondary to acute acute kidney injury and GI losses status post bicarb drip. Improved. 4. Hypokalemia from poor intake and intracellular shifting from IV bicarb. Improved. 5. Edema. 6. Severe sepsis secondary to E. coli bacteremia and UTI on antibiotics. ID following. Plan: Encouraged oral intake. Hep-Lock IV fluids. Lasix 20 mg IV once today. Repeat labs in the morning.
[2024-01-31 15:19] VITALS: BMI 28.4
--- NOTE | 2024-01-31 16:56 | P.PN ---
Subjective Progress Note Date: 01/31/24 Patient is a 68-year-old female with hypertension, dyslipidemia, and uterus/basilar prolapse who presented to the emergency department with 3 to 4 days of dizziness. Patient had had a knee surgery 3 weeks ago and since that time has had some diarrhea and poor oral intake. On arrival to the ER she was tachycardic with a pulse of 101 and the remainder of her vital signs are within normal limits. Initial laboratory analysis was remarkable for white blood cell count of 47.4, sodium 133, carbon dioxide 17, BUN 56, creatinine 3.24, lactic acid 2.7, total bilirubin 1.7, AST 50, ALT 54, and troponin 0.052. She underwent a CT head which showed acute sinusitis of the maxillary sinus. Patient was admitted for orthostatic hypotension and leukocytosis. She was started on Rocephin in the emergency department. Oncology was consulted to rule out leukemia. She was also started on IV fluids, her lisinopril was held, nephrology was consulted due to her acute kidney injury. Due to her elevated troponin cardiology was consulted. Troponins were trended and flat not consistent with acute coronary syndrome. Cardiology recommended continuing her Lipitor. Echocardiogram was performed which showed ejection fraction 60 to 65% without any wall motion abnormalities. She underwent renal ultrasound which showed moderate right hydronephrosis with mild to moderate left hydronephrosis. Normal gallbladder ultrasound which showed continued moderate hydronephrosis with no gallstones or ductal dilatation. Nephrology recommended urology consult and IV fluids as well as Guzman catheter placement. She was seen by oncology who felt that her leukocytosis is likely secondary to infection and leukemoid react ion. C. difficile was negative. She came back with an E. coli bacteremia in 2 out of 2 cultures. Urinalysis was consistent with urinary tract infection. Urology recommended gynecology consult. She underwent a CT abdomen and pelvis which demonstrated severe pelvic floor prolapse with moderate to severe right and moderate left hydronephrosis, left adrenal adenoma. Seen by ROOM CLEANER who recommends outpatient prolpase treatment. 01/30 Patient was seen and examined this morning. She reports nausea. Otherwise doing well. Lightheaded when changing position. Her orthostats are positive. Nephrology discontinued IVF and ordered Lasix 20 mg IV. Maintained on Rocephin. CBC WBC 18.88 Hg 8.3 Hct 25.9. CMP Cr 1.8, Ca 7. Mag 1.3. General: Nontoxic, no distress, appears at stated age Derm: Warm, dry Head: Atraumatic, normocephalic, symmetric Eyes: EOMI, no lid lag, anicteric sclera Mouth: No lip lesion, mucus membranes moist Cardiovascular: S1S2 reg, systolic murmur Lungs: CTA bilateral, no rhonchi, no rales, no accessory muscle use, supplemental oxygen Ext: No gross muscle atrophy, no edema, no contractures Neuro: no focal neuro deficits Psych: Alert, oriented, appropriate affect E. Coli UTI with E. coli bacteremia associated with sepsis: Continue Rocephin 2g IV QD. Follow repeat BCx ordered 01/29. Guzman catheter on discharge. Outpatient ROOM CLEANER for prolapse. Acute kidney injury: Improved with IV hydration. One dose of Lasix 20 mg IV ordered today by Nephrology, IVF discontinued. Nephrology on board. Bilateral moderate hydronephrosis: Guzman catheter on discharge. Bladder and uterine prolapse: ROOM CLEANER outpatient. Transaminitis: Stable Leukocytosis likely secondary to infection Normocytic normochromic anemia: Stable. No signs of active bleeding. Supine Hypertension with Orthostatic hypotension: Started on Norvasc 5 mg PO QD. Orthostats are positive. Advised slow positional changes. Resolved: Metabolic acidosis, Thrombocytopenia CODE STATUS: FULL CODE DVT Prophylaxis: Heparin SQ GI Prophylaxis: Designated medical POA if patient is not able to make medical decisions for themselves: I have reviewed the following baby registry sales consultant notes: Nephrology I have reviewed the results of the following tests: CBC, BMP, Mag I have ordered the following tests: I have discussed the care of this patient with the following independent historian: LAURI. I have independently interpreted the following test below: I have discussed the management of this patient with the following physician: Objective - Vital Signs Vital signs: Vital Signs Temp 98.1 F 01/31/24 13:13 Pulse 81 01/31/24 13:13 Resp 17 01/31/24 13:13 BP 131/81 01/31/24 13:13 Pulse Ox 93 L 01/31/24 13:13 FiO2 Intake & Output 01/30/24 01/31/24 01/31/24 18:59 06:59 18:59 Intake Total 450 Output Total 1800 Balance -1350 Weight 66 kg 66 kg Intake: Oral 450 Output: Urine 1800 Other: Voiding Method Indwelling Catheter Indwelling Catheter Indwelling Catheter # Bowel Movements 1 - Labs CBC & Chem 7: 01/31/24 06:40 01/31/24 06:40 Labs: Abnormal Lab Results - Last 24 Hours (Table) 01/31/24 01/31/24 01/31/24 Range/Units 06:40 06:40 06:40 WBC 18.88 H (4.50-10.00) X 10*3/uL RBC 2.84 L (4.10-5.20) X 10*6/uL Hgb 8.3 L (12.0-15.0) g/dL Hct 25.9 L (37.2-46.3) % Creatinine 1.8 H (0.6-1.5) mg/dL Est GFR (CKD-EPI) 30 L (>=60) Calcium 7.8 L (8.7-10.3) mg/dL Magnesium 1.3 L (1.5-2.4) mg/dL
[2024-01-31] MEDS: ONDANSETRON 4 MG/2 ML VIAL IVP STA (17:40)
[2024-01-31] MEDS: MAGNESIUM SULFATE-D5W PMX 1 GM in DEXTROSE/WATER 1 100ML.BAG IVPB SCH (17:40)
[2024-02-01 06:41] LABS: HCT 27.5 % (34.0-46.0); HGB 8.8 gm/dL (11.4-16.0); MCH 29.7 pg (25.0-35.0); MCHC 32.1 g/dL (31.0-37.0); MCV 92.4 fL (80.0-100.0); Platelet Count 313 k/uL (150-450); RBC 2.97 m/uL (3.80-5.40); RDW 13.5 % (11.5-15.5); WBC 14.4 k/uL (3.8-10.6)
[2024-02-01 08:41] LABS: BUN/Creat Ratio 9.42 Ratio (12.00-20.00); Blood Urea Nitrogen 24.5 mg/dL (9.0-27.0); Calcium 7.9 mg/dL (8.7-10.3); Carbon Dioxide 25.8 mmol/L (21.6-31.8); Chloride 100 mmol/L (96-109); Glucose 101 mg/dL (70-110); Potassium 3.6 mmol/L (3.5-5.5); Sodium 138 mmol/L (135-145)
--- NOTE | 2024-02-01 08:44 | P.PN ---
Subjective Progress Note Date: 01/31/24 Principal diagnosis: Reason for follow-up is complicated UTI and bacteremia Patient is a 68-year-old female with a past medical history significant for hypertension hyperlipidemia presenting to the hospital for evaluation of weakness dizziness patient did have evidence of complicated UTI with CT showing severe pelvic floor prolapse severe right and moderate left hydr onephrosis patient did have blood and urine culture positive for E. coli. On today's evaluation that is 01/31/2024, Patient is afebrile patient is currently on room air and denies having any shortness of breath, the patient is still complaining of feeling weak and dizzy however denies any chest pain or cough, the patient denies any nausea vomiting did not have any abdominal pain and no diarrhea. Patient white count is 18.8 creatinine is 1.8 Objective - Vital Signs Vital signs: Vital Signs Temp 98.1 F 01/31/24 13:13 Pulse 81 01/31/24 13:13 Resp 17 01/31/24 13:13 BP 131/81 01/31/24 13:13 Pulse Ox 93 L 01/31/24 13:13 FiO2 Intake & Output 01/30/24 01/31/24 01/31/24 18:59 06:59 18:59 Intake Total 450 Output Total 1800 Balance -1350 Weight 66 kg Intake: Oral 450 Output: Urine 1800 Other: Voiding Method Indwelling Catheter Indwelling Catheter Indwelling Catheter # Bowel Movements 1 - Exam GENERAL DESCRIPTION: An elderly female lying in bed in no distress RESPIRATORY SYSTEM: Unlabored breathing , decreased breath sounds at bases HEART: S1 S2 regular rate and rhythm , ABDOMEN: Soft , no tenderness EXTREMITIES: No edema feet - Labs CBC & Chem 7: 02/01/24 06:19 02/01/24 06:19 Labs: Abnormal Lab Results - Last 24 Hours (Table) 01/31/24 01/31/24 Range/Units 06:40 06:40 WBC 18.88 H (4.50-10.00) X 10*3/uL RBC 2.84 L (4.10-5.20) X 10*6/uL Hgb 8.3 L (12.0-15.0) g/dL Hct 25.9 L (37.2-46.3) % Creatinine 1.8 H (0.6-1.5) mg/dL Est GFR (CKD-EPI) 30 L (>=60) Calcium 7.8 L (8.7-10.3) mg/dL Assessment and Plan (1) E. coli UTI Current Visit: Yes Status: Acute Code(s): N39.0 - URINARY TRACT INFECTION, SITE NOT SPECIFIED; B96.20 - UNSP ESCHERICHIA COLI THE CAUSE OF DISEASES CLASSD [facility] SNOMED Code(s): 501542620 (2) E coli bacteremia Current Visit: Yes Status: Acute Code(s): R78.81 - BACTEREMIA; B96.20 - UNSP ESCHERICHIA COLI THE CAUSE OF DISEASES CLASSD [facility] SNOMED Code(s): 047769409260 (3) Leukocytosis Current Visit: Yes Status: Acute Priority: Medium Code(s): D72.829 - ELEVATED WHITE BLOOD CELL COUNT, UNSPECIFIED SNOMED Code(s): 495832140 Plan: 1patient admitted to hospital initially with sepsis secondary to complicated UTI in this patient who did have a severe pelvic floor prolapse with evidence of severe right and moderate left hydronephrosis and E. coli UTI as well as bacteremia with some resistant pattern 2-patient still have elevated white count though some improvement in the kidney function if any worsening kidney function will benefit from surgical intervention for now continue with Rocephin 2 g daily Dictation was produced using [employer] dictation software. please excuse any grammatical, word or spelling errors. Time with Patient: Less than 30
[2024-02-01 09:09] LABS: Magnesium 2.8 mg/dL (1.5-2.4)
--- NOTE | 2024-02-01 11:36 | P.PN ---
Subjective Patient is seen in follow-up for acute kidney injury. Renal function worsening. Creatinine 2.6 today. Nonoliguric. Off IV fluids. Received 1 dose of IV Lasix yesterday. Vital signs are stable. General: No acute distress. HEENT: Head exam is unremarkable. LUNGS: No audible rhonchi or wheezes. HEART: Rate and Rhythm are regular. ABDOMEN: Nontender. EXTREMITITES: Trace edema. Objective - Vital Signs Vital signs: Vital Signs Temp 98.3 F 02/01/24 06:48 Pulse 73 02/01/24 06:48 Resp 16 02/01/24 06:48 BP 136/72 02/01/24 06:48 Pulse Ox 94 L 02/01/24 06:48 FiO2 Intake & Output 01/31/24 02/01/24 02/01/24 18:59 06:59 18:59 Output Total 600 Balance -600 Weight 66 kg Output: Urine 600 Other: Voiding Method Indwelling Catheter Indwelling Catheter Indwelling Catheter # Bowel Movements 1 - Labs CBC & Chem 7: 02/01/24 06:19 02/01/24 06:19 Labs: Abnormal Lab Results - Last 24 Hours (Table) 01/31/24 02/01/24 02/01/24 Range/Units 06:40 06:19 06:19 WBC 14.4 H (3.8-10.6) k/uL RBC 2.97 L (3.80-5.40) m/uL Hgb 8.8 L (11.4-16.0) gm/dL Hct 27.5 L (34.0-46.0) % Anion Gap 12.20 H (4.00-12.00) mmol/L Creatinine 2.6 H (0.6-1.5) mg/dL Est GFR (CKD-EPI) 20 L (>=60) BUN/Creatinine Ratio 9.42 L (12.00-20.00) Ratio Calcium 7.9 L (8.7-10.3) mg/dL Magnesium 1.3 L 2.8 H (1.5-2.4) mg/dL Microbiology - Last 24 Hours (Table) 01/30/24 08:28 Blood Culture - Preliminary Blood Assessment and Plan Plan: Assessment: 1. Acute kidney injury secondary to obstructive uropathy and ATN from severe sepsis. Creatinine peaked at 4.5 at this admission and was down to 1.15 yesterday - up to 2.6 today. Unknown baseline renal function. 2. Bilateral hydronephrosis with prolapsed bladder. Has Guzman catheter. Urology following. 3. Metabolic acidosis secondary to acute acute kidney injury and GI losses status post bicarb drip. Improved. 4. Hypokalemia from poor intake and intracellular shifting from IV bicarb. Improved. 5. Edema. Status post IV Lasix yesterday. Improved. 6. Severe sepsis secondary to E. coli bacteremia and UTI on antibiotics. ID following. Plan: Encouraged oral intake. Resume gentle IV hydration. Maintain Guzman catheter. Hold amlodipine for systolic blood pressure less than 120. Repeat labs in the morning.
[2024-02-01] MEDS: SODIUM CHLORIDE 0.9% 1,000 ML IV SCH (11:56)
--- NOTE | 2024-02-01 12:49 | P.PN ---
Subjective Progress Note Date: 02/01/24 Patient is a 68-year-old female with hypertension, dyslipidemia, and uterus/basilar prolapse who presented to the emergency department with 3 to 4 days of dizziness. Patient had had a knee surgery 3 weeks ago and since that time has had some diarrhea and poor oral intake. On arrival to the ER she was tachycardic with a pulse of 101 and the remainder of her vital signs are within normal limits. Initial laboratory analysis was remarkable for white blood cell count of 47.4, sodium 133, carbon dioxide 17, BUN 56, creatinine 3.24, lactic acid 2.7, total bilirubin 1.7, AST 50, ALT 54, and troponin 0.052. She underwent a CT head which showed acute sinusitis of the maxillary sinus. Patient was admitted for orthostatic hypotension and leukocytosis. She was started on Rocephin in the emergency department. Oncology was consulted to rule out leukemia. She was also started on IV fluids, her lisinopril was held, nephrology was consulted due to her acute kidney injury. Due to her elevated troponin cardiology was consulted. Troponins were trended and flat not consistent with acute coronary syndrome. Cardiology recommended continuing her Lipitor. Echocardiogram was performed which showed ejection fraction 60 to 65% without any wall motion abnormalities. She underwent renal ultrasound which showed moderate right hydronephrosis with mild to moderate left hydronephrosis. Normal gallbladder ultrasound which showed continued moderate hydronephrosis with no gallstones or ductal dilatation. Nephrology recommended urology consult and IV fluids as well as Guzman catheter placement. She was seen by oncology who felt that her leukocytosis is likely secondary to infection and leukemoid react ion. C. difficile was negative. She came back with an E. coli bacteremia in 2 out of 2 cultures. Urinalysis was consistent with urinary tract infection. Urology recommended gynecology consult. She underwent a CT abdomen and pelvis which demonstrated severe pelvic floor prolapse with moderate to severe right and moderate left hydronephrosis, left adrenal adenoma. Seen by REGISTERED PUBLIC HEALTH NURSE who recommends outpatient prolpase treatment. 01/30 Patient was seen and examined this morning. She reports nausea. Otherwise doing well. Lightheaded when changing position. Her orthostats are positive. Nephrology discontinued IVF and ordered Lasix 20 mg IV. Maintained on Rocephin. CBC WBC 18.88 Hg 8.3 Hct 25.9. CMP Cr 1.8, Ca 7. Mag 1.3. 01/31 Patient was seen and examined. Reports slight dizziness with changes in position today. Orthostats are negative today. Nephrology restarted NS at 50 cc/hr. CBC WBC 14.4 Hg 8.8 Hct 27.5. BMP AG 12.2, Cr 2.6, Ca 7.9. Mag 2.8. Repeat BCx prelim negative at 24H. General: Nontoxic, no distress, appears at stated age Derm: Warm, dry Head: Atraumatic, normocephalic, symmetric Eyes: EOMI, no lid lag, anicteric sclera Mouth: No lip lesion, mucus membranes moist Cardiovascular: S1S2 reg, systolic murmur Lungs: CTA bilateral, no rhonchi, no rales, no accessory muscle use, sup plemental oxygen Ext: No gross muscle atrophy, no edema, no contractures Neuro: no focal neuro deficits Psych: Alert, oriented, appropriate affect E. Coli UTI with E. coli bacteremia associated with sepsis: Continue Rocephin 2g IV QD. Follow repeat BCx ordered 01/29. Guzman catheter on discharge. Outpatient REGISTERED PUBLIC HEALTH NURSE for prolapse. Acute kidney injury: Worsened from yesterday. Started on NS at 50 cc/hr. Repeat BMP tomorrow. Nephrology on board. Bilateral moderate hydronephrosis: Guzman catheter on discharge. Bladder and uterine prolapse: REGISTERED PUBLIC HEALTH NURSE outpatient. Transaminitis: Stable Leukocytosis likely secondary to infection Normocytic normochromic anemia: Stable. No signs of active bleeding. Supine Hypertension with Orthostatic hypotension: Started on Norvasc 5 mg PO QD. Orthostats are positive. Advised slow positional changes. Resolved: Metabolic acidosis, Thrombocytopenia Anticipate DC in 1-2 days if BCx remains negative and renal function shows improvement. CODE STATUS: FULL CODE DVT Prophylaxis: Heparin SQ GI Prophylaxis: Designated medical POA if patient is not able to make medical decisions for themselves: I have reviewed the following portfolio consultant notes: Nephrology I have reviewed the results of the following tests: CBC, BMP, Mag, BCx. I have ordered the following tests: BMP. I have discussed the care of this patient with the following independent historian: I have independently interpreted the following test below: I have discussed the management of this patient with the following physician: Objective - Vital Signs Vital signs: Vital Signs Temp 98.3 F 02/01/24 06:48 Pulse 73 02/01/24 06:48 Resp 16 02/01/24 06:48 BP 136/72 02/01/24 06:48 Pulse Ox 94 L 02/01/24 06:48 FiO2 Intake & Output 01/31/24 02/01/24 02/01/24 18:59 06:59 18:59 Output Total 600 Balance -600 Weight 66 kg Output: Urine 600 Other: Voiding Method Indwelling Catheter Indwelling Catheter Indwelling Catheter # Bowel Movements 1 - Labs CBC & Chem 7: 02/01/24 06:19 02/01/24 06:19 Labs: Abnormal Lab Results - Last 24 Hours (Table) 01/31/24 02/01/24 02/01/24 Range/Units 06:40 06:19 06:19 WBC 14.4 H (3.8-10.6) k/uL RBC 2.97 L (3.80-5.40) m/uL Hgb 8.8 L (11.4-16.0) gm/dL Hct 27.5 L (34.0-46.0) % Anion Gap 12.20 H (4.00-12.00) mmol/L Creatinine 2.6 H (0.6-1.5) mg/dL Est GFR (CKD-EPI) 20 L (>=60) BUN/Creatinine Ratio 9.42 L (12.00-20.00) Ratio Calcium 7.9 L (8.7-10.3) mg/dL Magnesium 1.3 L 2.8 H (1.5-2.4) mg/dL Microbiology - Last 24 Hours (Table) 01/30/24 08:28 Blood Culture - Preliminary Blood
--- NOTE | 2024-02-01 22:07 | P.PN ---
Subjective Progress Note Date: 02/01/24 Principal diagnosis: Reason for follow-up is complicated UTI and bacteremia Patient is a 68-year-old female with a past medical history significant for hypertension hyperlipidemia presenting to the hospital for evaluation of weakness dizziness patient did have evidence of complicated UTI with CT showing severe pelvic floor prolapse severe right and moderate left hydr onephrosis patient did have blood and urine culture positive for E. coli. On today's evaluation that is 02/01/2024, patient has been afebrile, patient is breathing comfortably and is currently on room air, patient denies having any significant cough no chest pain shortness of breath, patient denies nausea vomiting or diarrhea and no abdominal pain, however the patient did not mention blood in the stool this morning. The patient white count is down to 14.4 however a creatinine of 2.6 blood cultur e repeat so far negative Objective - Vital Signs Vital signs: Vital Signs Temp 98.3 F 02/01/24 06:48 Pulse 73 02/01/24 06:48 Resp 16 02/01/24 06:48 BP 136/72 02/01/24 06:48 Pulse Ox 94 L 02/01/24 06:48 FiO2 Intake & Output 01/31/24 02/01/24 02/01/24 18:59 06:59 18:59 Output Total 600 Balance -600 Weight 66 kg Output: Urine 600 Other: Voiding Method Indwelling Catheter Indwelling Catheter Indwelling Catheter # Bowel Movements 1 - Exam GENERAL DESCRIPTION: An elderly female lying in bed in no distress RESPIRATORY SYSTEM: Unlabored breathing , decreased breath sounds at bases HEART: S1 S2 regular rate and rhythm , ABDOMEN: Soft , no tenderness EXTREMITIES: No edema feet - Labs CBC & Chem 7: 02/01/24 06:19 02/01/24 06:19 Labs: Abnormal Lab Results - Last 24 Hours (Table) 01/31/24 01/31/24 02/01/24 Range/Units 06:40 06:40 06:19 WBC 14.4 H (3.8-10.6) k/uL RBC 2.97 L (3.80-5.40) m/uL Hgb 8.8 L (11.4-16.0) gm/dL Hct 27.5 L (34.0-46.0) % Anion Gap (4.00-12.00) mmol/L Creatinine 1.8 H (0.6-1.5) mg/dL Est GFR (CKD-EPI) 30 L (>=60) BUN/Creatinine Ratio (12.00-20.00) Ratio Calcium 7.8 L (8.7-10.3) mg/dL Magnesium 1.3 L (1.5-2.4) mg/dL 02/01/24 Range/Units 06:19 WBC (3.8-10.6) k/uL RBC (3.80-5.40) m/uL Hgb (11.4-16.0) gm/dL Hct (34.0-46.0) % Anion Gap 12.20 H (4.00-12.00) mmol/L Creatinine 2.6 H (0.6-1.5) mg/dL Est GFR (CKD-EPI) 20 L (>=60) BUN/Creatinine Ratio 9.42 L (12.00-20.00) Ratio Calcium 7.9 L (8.7-10.3) mg/dL Magnesium 2.8 H (1.5-2.4) mg/dL Microbiology - Last 24 Hours (Table) 01/30/24 08:28 Blood Culture - Preliminary Blood Assessment and Plan (1) E. coli UTI Current Visit: Yes Status: Acute Code(s): N39.0 - URINARY TRACT INFECTION, SITE NOT SPECIFIED; B96.20 - UNSP ESCHERICHIA COLI THE CAUSE OF DISEASES CLASSD [facility] SNOMED Code(s): 676705173 (2) E coli bacteremia Current Visit: Yes Status: Acute Code(s): R78.81 - BACTEREMIA; B96.20 - UNSP ESCHERICHIA COLI THE CAUSE OF DISEASES CLASSD [facility] SNOMED Code(s): 170007313018 (3) Leukocytosis Current Visit: Yes Status: Acute Priority: Medium Code(s): D72.829 - ELEVATED WHITE BLOOD CELL COUNT, UNSPECIFIED SNOMED Code(s): 106165073 Plan: 1patient admitted to hospital initially with sepsis secondary to complicated UTI in this patient who did have a severe pelvic floor prolapse with evidence of severe right and moderate left hydronephrosis and E. coli UTI as well as bacteremia with some resistant pattern 2-patient white count is trending down however noticed to have slight worsening of the kidney function being monitored closely by nephrology continue with Rocephin Dictation was produced using [employer] software. please excuse any grammatical, word or spelling errors. Time with Patient: Less than 30
[2024-02-02 09:24] LABS: BUN/Creat Ratio 11.75 Ratio (12.00-20.00); Blood Urea Nitrogen 23.5 mg/dL (9.0-27.0); Chloride 105 mmol/L (96-109); Glucose 91 mg/dL (70-110); Magnesium 2.2 mg/dL (1.5-2.4); Sodium 140 mmol/L (135-145)
[2024-02-02 09:25] LABS: Calcium 7.8 mg/dL (8.7-10.3); Carbon Dioxide 25.7 mmol/L (21.6-31.8)
[2024-02-02 09:27] LABS: Basophils # (A) 0.1 k/uL (0-0.2); Basophils % (A) 0 %; Eosinophils # (A) 0.3 k/uL (0-0.7); Eosinophils % (A) 2 %; HCT 26.4 % (34.0-46.0); HGB 8.3 gm/dL (11.4-16.0); Lymphocytes # (A) 1.5 k/uL (1.0-4.8); Lymphocytes % (A) 12 %; MCH 29.6 pg (25.0-35.0); MCHC 31.6 g/dL (31.0-37.0); MCV 93.7 fL (80.0-100.0); Mean Platelet Volume 9.1; Monocytes # (A) 0.7 k/uL (0-1.0); Monocytes % (A) 6 %; Neutrophils # (A) 10.1 k/uL (1.3-7.7); Neutrophils % (A) 78 %; Platelet Count 393 k/uL (150-450); RBC 2.81 m/uL (3.80-5.40); RDW 13.6 % (11.5-15.5)
--- NOTE | 2024-02-02 10:55 | P.PN ---
Subjective Patient is seen in follow-up for acute kidney injury. Renal function better. Creatinine 2.0. Nonoliguric. Receiving normal saline at 50 cc an hour. Oral intake fair. Hemodynamically stable. Vital signs are stable. General: No acute distress. HEENT: Head exam is unremarkable. LUNGS: No audible rhonchi or wheezes. HEART: Rate and Rhythm are regular. ABDOMEN: Nontender. EXTREMITITES: Trace edema. Objective - Vital Signs Vital signs: Vital Signs Temp 98.3 F 02/02/24 07:30 Pulse 78 02/02/24 07:30 Resp 20 02/02/24 07:30 BP 148/78 02/02/24 07:30 Pulse Ox 95 02/02/24 07:30 FiO2 Intake & Output 02/01/24 02/02/24 02/02/24 18:59 06:59 18:59 Output Total 700 600 Balance -700 -600 Output: Urine 700 600 Other: Voiding Method Indwelling Catheter Indwelling Catheter Indwelling Catheter # Voids 1 # Bowel Movements 1 1 - Labs CBC & Chem 7: 02/02/24 04:13 02/02/24 04:13 Labs: Abnormal Lab Results - Last 24 Hours (Table) 02/02/24 02/02/24 Range/Units 04:13 04:13 WBC 13.0 H (3.8-10.6) k/uL RBC 2.81 L (3.80-5.40) m/uL Hgb 8.3 L (11.4-16.0) gm/dL Hct 26.4 L (34.0-46.0) % Neutrophils # 10.1 H (1.3-7.7) k/uL Creatinine 2.0 H (0.6-1.5) mg/dL Est GFR (CKD-EPI) 27 L (>=60) BUN/Creatinine Ratio 11.75 L (12.00-20.00) Ratio Calcium 7.8 L (8.7-10.3) mg/dL Microbiology - Last 24 Hours (Table) 01/30/24 08:28 Blood Culture - Preliminary Blood Assessment and Plan Plan: Assessment: 1. Acute kidney injury secondary to obstructive uropathy and ATN from severe sepsis. Creatinine peaked at 4.5 at this admission and was down to 1.15 yesterday -then started worsening with creatinine up to 2.6 February 01, 2024 - 2.0 today. Unknown baseline renal function. 2. Bilateral hydronephrosis with prolapsed bladder. Has Guzman catheter. Urology following. 3. Metabolic acidosis secondary to acute acute kidney injury and GI losses status post bicarb drip. Improved. 4. Hypokalemia from poor intake and intracellular shifting from IV bicarb. Improved. 5. Edema. Status post IV Lasix this admission. Improved. 6. Severe sepsis secondary to E. coli bacteremia and UTI on antibiotics. ID following. Plan: Encouraged oral intake. Maintain IV hydration. Maintain Guzmna catheter. Hold amlodipine for systolic blood pressure less than 120. Repeat labs in the morning.
--- NOTE | 2024-02-02 15:30 | P.PN ---
Subjective Progress Note Date: 02/02/24 Hospital Course: Patient is a 68-year-old female with hypertension, dyslipidemia, and uterus/ba silar prolapse who presented to the emergency department with 3 to 4 days of dizziness. Patient had had a knee surgery 3 weeks ago and since that time has had some diarrhea and poor oral intake. On arrival to the ER she was tachycardic with a pulse of 101 and the remainder of her vital signs are within normal limits. Initial laboratory analysis was remarkable for white blood cell count of 47.4, sodium 133, carbon dioxide 17, BUN 56, creatinine 3.24, lactic acid 2.7, total bilirubin 1.7, AST 50, ALT 54, and troponin 0.052. She underwent a CT head which showed acute sinusitis of the maxillary sinus. Patient was admitted for orthostatic hypotension and leukocytosis. She was started on Rocephin in the emergency department. Oncology was consulted to rule out leukemia. She was also started on IV fluids, her lisinopril was held, nephrology was consulted due to her acute kidney injury. Due to her elevated troponin cardiology was consulted. Troponins were trended and flat not consiste nt with acute coronary syndrome. Cardiology recommended continuing her Lipitor. Echocardiogram was performed which showed ejection fraction 60 to 65% without any wall motion abnormalities. She underwent renal ultrasound which showed moderate right hydronephrosis with mild to moderate left hydronephrosis. Normal gallbladder ultrasound which showed continued moderate hydronephrosis with no gallstones or ductal dilatation. Nephrology recommended urology consult and IV fluids as well as Guzman catheter placement. She was seen by oncology who felt that her leukocytosis is likely secondary to infection and leukemoid reaction. C. difficile was negative. She came back with an E. coli bacteremia in 2 out of 2 cultures. Urinalysis was consistent with urinary tract infection. Urology recommended gynecology consult. She underwent a CT abdomen and pelvis which demonstrated severe pelvic floor prolapse with moderate to severe right and moderate left hydronephrosis, left adrenal adenoma. Seen by DIRECTOR OF QUALITY IMPROVEMENT who recommends outpatient prolpase treatment. Nephrology monitoring fluid status. Maintained on Rocephin. Repeat Bcx negative. Subjective: Seen and examined at bedside. No acute events overnight. Complaining of vaginal bleeding. Catheter in place.` Pertinent positives and negatives as discussed above, a complete review of systems was performed and all other systems are negative. Vitals Signs Reviewed. General: Nontoxic, no distress, appears at stated age Derm: Warm, dry Head: Atraumatic, normocephalic, symmetric Eyes: EOMI, no lid lag, anicteric sclera Mouth: No lip lesion, mucus membranes moist Cardiovascular: S1S2 reg, systolic murmur Lungs: CTA bilateral, no rhonchi, no rales, no accessory muscle use, supplemental oxygen Ext: No gross muscle atrophy, no edema, no contractures Neuro: no focal neuro deficits Psych: Alert, oriented, appropriate affect Data Reviewed Today: Pertinent Labs: 13, hemoglobin 8.3, creatinine 2, magnesium 2.2 Imaging: No new imaging Assessment and Plan: E. Coli UTI with E. coli bacteremia associated with sepsis Leukocytosis -Continue Rocephin 2g IV QD. -Repeat blood cultures negative growth to date -Guzman catheter on discharge -ID following Acute kidney injury, resolving Bilateral moderate hydronephrosis -Continue Guzman catheter -On normal saline 50 cc an hour -Nephrology note reviewed, repeat BMP tomorrow Bladder and uterine prolapse Urine bleeding Acute blood loss anemia -Hemoglobin slightly down trended, continue to follow -If worsening hemoglobin, will reconsult gynecology -Gynecology recommended outpatient follow-up for prolapse. Transaminitis: Stable Supine Hypertension with Orthostatic hypotension -Continue Norvasc 5 mg PO QD -Slow positional changes -On normal saline 50 cc an hour Elevated troponin, likely secondary to acute kidney injury -Cardiology signed off -Patient on aspirin 81 mg daily, atorvastatin 40 mg daily Resolved: Metabolic acidosis, Thrombocytopenia DVT ppx: Subcu heparin Code status: Full code Anticipated discharge place: Pending clinical course Anticipated discharge time: Pending clinical course Objective - Vital Signs Vital signs: Vital Signs Temp 98.2 F 02/02/24 11:46 Pulse 59 L 02/02/24 11:46 Resp 16 02/02/24 11:46 BP 146/78 02/02/24 11:46 Pulse Ox 98 02/02/24 11:46 FiO2 Intake & Output 02/01/24 02/02/24 02/02/24 18:59 06:59 18:59 Output Total 700 600 Balance -700 -600 Output: Urine 700 600 Other: Voiding Method Indwelling Catheter Indwelling Catheter Indwelling Catheter # Voids 1 # Bowel Movements 1 1 - Labs CBC & Chem 7: 02/02/24 04:13 02/02/24 04:13 Labs: Abnormal Lab Results - Last 24 Hours (Table) 02/02/24 02/02/24 Range/Units 04:13 04:13 WBC 13.0 H (3.8-10.6) k/uL RBC 2.81 L (3.80-5.40) m/uL Hgb 8.3 L (11.4-16.0) gm/dL Hct 26.4 L (34.0-46.0) % Neutrophils # 10.1 H (1.3-7.7) k/uL Creatinine 2.0 H (0.6-1.5) mg/dL Est GFR (CKD-EPI) 27 L (>=60) BUN/Creatinine Ratio 11.75 L (12.00-20.00) Ratio Calcium 7.8 L (8.7-10.3) mg/dL Microbiology - Last 24 Hours (Table) 01/30/24 08:28 Blood Culture - Preliminary Blood
[2024-02-03 07:40] LABS: % Iron Saturation 10.25 (12.00-45.00)
[2024-02-03 09:29] LABS: Basophils # (A) 0.09 X 10*3/uL (0.00-0.10); Basophils % (A) 0.7 %; Eosinophils # (A) 0.25 X 10*3/uL (0.04-0.35); Eosinophils % (A) 1.9 %; HGB 7.9 g/dL (12.0-15.0); Lymphocytes # (A) 1.82 X 10*3/uL (0.90-5.00); MCH 29.6 pg (27.0-32.0); MCHC 31.6 g/dL (32.0-37.0); MCV 93.6 FL (80.0-97.0); Mean Platelet Volume 10.4 FL (9.5-12.2); Monocytes # (A) 0.72 X 10*3/uL (0.20-1.00); Monocytes % (A) 5.5 %; NRBC Per 100 WBC 0 X 10*3/uL (0.00-0.01); Neutrophils # (A) 9.76 X 10*3/uL (1.80-7.70); Neutrophils % (A) 75.1 %; Platelet Count 429 X 10*3/uL (140-440); RBC 2.67 X 10*6/uL (4.10-5.20); RDW 13.8 % (11.5-14.5)
[2024-02-03 09:34] LABS: Blood Urea Nitrogen 20.2 mg/dL (9.0-27.0); Calcium 7.8 mg/dL (8.7-10.3); Carbon Dioxide 23.8 mmol/L (21.6-31.8); Chloride 108 mmol/L (96-109); Glucose 88 mg/dL (70-110); Potassium 4.1 mmol/L (3.5-5.5); Sodium 142 mmol/L (135-145)
--- NOTE | 2024-02-03 10:44 | P.PN ---
Subjective Patient is seen in follow-up for acute kidney injury. Renal function stable. Nonoliguric. Receiving normal saline at 50 cc an hour. Oral intake fair. Hemodynamically stable. Vital signs are stable. General: No acute distress. HEENT: Head exam is unremarkable. LUNGS: No audible rhonchi or wheezes. HEART: Rate and Rhythm are regular. ABDOMEN: Nontender. EXTREMITITES: Trace edema. Objective - Vital Signs Vital signs: Vital Signs Temp 97.6 F 02/03/24 07:30 Pulse 73 02/03/24 07:30 Resp 18 02/03/24 07:30 BP 155/70 02/03/24 07:30 Pulse Ox 93 L 02/03/24 07:30 FiO2 Intake & Output 02/02/24 02/03/24 02/03/24 18:59 06:59 18:59 Output Total 700 800 Balance -700 -800 Output: Urine 700 800 Other: Voiding Method Indwelling Catheter Indwelling Catheter Indwelling Catheter # Voids 1 # Bowel Movements 1 - Labs CBC & Chem 7: 02/03/24 06:15 02/03/24 06:15 Labs: Abnormal Lab Results - Last 24 Hours (Table) 02/02/24 02/03/24 02/03/24 Range/Units 04:13 06:15 06:15 WBC 13.00 H (4.50-10.00) X 10*3/uL RBC 2.67 L (4.10-5.20) X 10*6/uL Hgb 7.9 L (12.0-15.0) g/dL Hct 25.0 L (37.2-46.3) % MCHC 31.6 L (32.0-37.0) g/dL Immature Gran # 0.36 H (0.00-0.04) X 10*3/uL Neutrophils # 9.76 H (1.80-7.70) X 10*3/uL Creatinine 2.0 H (0.6-1.5) mg/dL Est GFR (CKD-EPI) 27 L (>=60) BUN/Creatinine Ratio 10.10 L (12.00-20.00) Ratio Calcium 7.8 L (8.7-10.3) mg/dL Iron 25 L (50-170) UG/DL % Saturation 10.25 L (12.00-45.00) Transferrin 174.0 L (204.0-354.0) mg/dL Ferritin 494.0 H (10.0-291.0) ng/mL Microbiology - Last 24 Hours (Table) 01/30/24 08:28 Blood Culture - Preliminary Blood Assessment and Plan Plan: Assessment: 1. Acute kidney injury secondary to obstructive uropathy and ATN from severe sepsis. Creatinine peaked at 4.5 at this admission and was down to 1.15 yesterday - then started worsening with creatinine up to 2.6 February 01, 2024 - s table at 2.0 today. Unknown baseline renal function. 2. Bilateral hydronephrosis with prolapsed bladder. Has Guzman catheter. Urology following. 3. Metabolic acidosis secondary to acute acute kidney injury and GI losses status post bicarb drip. Improved. 4. Hypokalemia from poor intake and intracellular shifting from IV bicarb. Improved. 5. Edema. Status post IV Lasix this admission. Improved. 6. Severe sepsis secondary to E. coli bacteremia and UTI on antibiotics. ID following. Plan: Encouraged oral intake. Maintain gentle IV hydration. Maintain Guzman catheter. Hold amlodipine for systolic blood pressure less than 120. Continue to monitor renal function and urine output.
--- NOTE | 2024-02-03 15:27 | P.PN ---
Subjective Progress Note Date: 02/03/24 (delayed charting seen at 0930) Patient is a 68-year-old female with hypertension, dyslipidemia, and uterus/basilar prolapse who presented to the emergency department with 3 to 4 days of dizziness. Patient had had a knee surgery 3 weeks ago and since that time has had some diarrhea and poor oral intake. On arrival to the ER she was tachycardic with a pulse of 101 and the remainder of her vital signs are within normal limits. Initial laboratory analysis was remarkable for white blood cell count of 47.4, sodium 133, carbon dioxide 17, BUN 56, creatinine 3.24, lactic acid 2.7, total bilirubin 1.7, AST 50, ALT 54, and troponin 0.052. She underwent a CT head which showed acute sinusitis of the maxillary sinus. Patient was admitted for orthostatic hypotension and leukocytosis. She was s tarted on Rocephin in the emergency department. Oncology was consulted to rule out leukemia. She was also started on IV fluids, her lisinopril was held, nephrology was consulted due to her acute kidney injury. Due to her elevated troponin cardiology was consulted. Troponins were trended and flat not consistent with acute coronary syndrome. Cardiology recommended continuing her Lipitor. Echocardiogram was performed which showed ejection fraction 60 to 65% without any wall motion abnormalities. She underwent renal ultrasound which showed moderate right hydronephrosis with mild to moderate left hydronephrosis. Normal gallbladder ultrasound which showed continued moderate hydronephrosis with no gallstones or ductal dilatation. Nephrology recommended urology consult and IV fluids as well as Mejias catheter placement. She was seen by oncology who felt that her leukocytosis is likely secondary to infection and leukemoid reaction. C. difficile was negative. She came back with an E. coli bacteremia in 2 out of 2 cultures. Urinalysis was consistent with urinary tract infection. Urology recommended gynecology consult. She underwent a CT abdomen and pelvis which demonstrated severe pelvic floor prolapse with moderate to severe right and moderate left hydronephrosis, left adrenal adenoma. Seen by ELEMENTARY SCHOOL SCIENCE TEACHER who recommends outpatient prolpase treatment. Her renal function continued to improve. Infectious disease was consulted because she respiked fevers and they agreed with continuing Rocephin. Patient seen and examined at bedside. No complaints currently. Denies any chest pain, shortness of breath, nausea, vomiting, diarrhea. She is okay being discharged home with Mejias catheter in place Vital signs reviewed General: Nontoxic, no distress, appears at stated age Cardiovascular: S1S2 reg, no murmur Lungs: CTA bilateral, no rhonchi, no rales, no accessory muscle use Abdominal: Soft, nontender to palpation, no guarding Ext: No gross muscle atrophy, no edema b/l lower extremities, no contractures Neuro: CN II-XI grossly intact, no focal neuro deficits Psych: Alert, oriented, appropriate affect Assessment/Plan: E. Coli Urinary tract infection with E. coli bacteremia associated with sepsis Acute kidney injury, improving Metabolic acidosis. resolved Bilateral moderate hydronephrosis Bladder and uterine prolapse Transaminitis, stable -Continue with Mejias catheter. Plan to keep this on discharge. - NS at 50 cc/hr -Avoid additional nephrotoxic agents, lisinopril on hold -Nephrology note reviewed: Continue IV fluids. Home hold amlodipine, monitor urine output -Await further infectious disease recommendations -F/U outpatient for prolapse surgery with ELEMENTARY SCHOOL SCIENCE TEACHER. Continue with mejias on discharge. -Continue with Rocephin 2 g every 24 hours. Plan for transition to keflex on discharge to complete a 14 days course in total Leukocytosis likely secondary to infection Normocytic normochromic anemia -Hematology and oncology had reviewed patient's iron studies earlier this hospital stay and concluded that they were suppressed due to acute illness -No indication for transfusion -Follow CBC -Per oncology light chain ratios are normal. -Follow CBC Supine Hypertension with Orthostatic hypotension -Continue with IV fluids as above -continue to be orthostatic through / -Add bilateral SCDs -Repeat orthostatics in a.m. Elevated troponin, not consistent with ACS - cardio following as needed -Aspirin 81 mg, Lipitor 40 mg daily Hypokalemia, resolved Thrombocytopenia, resolved Imaging: None new Data Review: As reviewed from today include CBC and basic metabolic profile which are remarkable for white blood cell count 13, hemoglobin 7.9, creatinine 2 DVT prophylaxis: Heparin 5000 units 3 times daily Anticipated discharge date: in AM Anticipated discharge place: This dictation was prepared using [employer] voice recognition software. Though every attempt is made to correct errors during dictation some may still exist. Objective - Vital Signs Vital signs: Vital Signs Temp 98.4 F 02/03/24 11:38 Pulse 71 02/03/24 11:38 Resp 18 02/03/24 11:38 BP 147/80 02/03/24 11:38 Pulse Ox 96 02/03/24 11:38 FiO2 Intake & Output 02/02/24 02/03/24 02/03/24 18:59 06:59 18:59 Output Total 700 800 600 Balance -700 -800 -600 Output: Urine 700 800 600 Other: Voiding Method Indwelling Catheter Indwelling Catheter Indwelling Catheter # Voids 1 # Bowel Movements 1 2 - Labs CBC & Chem 7: 02/03/24 06:15 02/03/24 06:15 Labs: Abnormal Lab Results - Last 24 Hours (Table) 02/02/24 02/03/24 02/03/24 Range/Units 04:13 06:15 06:15 WBC 13.00 H (4.50-10.00) X 10*3/uL RBC 2.67 L (4.10-5.20) X 10*6/uL Hgb 7.9 L (12.0-15.0) g/dL Hct 25.0 L (37.2-46.3) % MCHC 31.6 L (32.0-37.0) g/dL Immature Gran # 0.36 H (0.00-0.04) X 10*3/uL Neutrophils # 9.76 H (1.80-7.70) X 10*3/uL Creatinine 2.0 H (0.6-1.5) mg/dL Est GFR (CKD-EPI) 27 L (>=60) BUN/Creatinine Ratio 10.10 L (12.00-20.00) Ratio Calcium 7.8 L (8.7-10.3) mg/dL Iron 25 L (50-170) UG/DL % Saturation 10.25 L (12.00-45.00) Transferrin 174.0 L (204.0-354.0) mg/dL Ferritin 494.0 H (10.0-291.0) ng/mL Microbiology - Last 24 Hours (Table) 01/30/24 08:28 Blood Culture - Preliminary Blood
--- NOTE | 2024-02-03 18:59 | P.PN ---
Subjective Progress Note Date: 02/02/24 Principal diagnosis: Reason for follow-up is complicated UTI and bacteremia Patient is a 68-year-old female with a past medical history significant for hypertension hyperlipidemia presenting to the hospital for evaluation of weakness dizziness patient did have evidence of complicated UTI with CT showing severe pelvic floor prolapse severe right and moderate left hydr onephrosis patient did have blood and urine culture positive for E. coli. On today's evaluation that is 02/02/2024,the patient still complaining of feeling weak but no dizziness, denies any fever or any chills, patient is breathing comfortably on room air, the patient denies chest pain shortness of breath and no significant cough, patient denies abdominal pain, no nausea vomiting or diarrhea. Patient white count is down to 13,000 with a creatinine 2.0 blood culture repeat has been negative Objective - Vital Signs Vital signs: Vital Signs Temp 98.2 F 02/02/24 11:46 Pulse 59 L 02/02/24 11:46 Resp 16 02/02/24 11:46 BP 146/78 02/02/24 11:46 Pulse Ox 98 02/02/24 11:46 FiO2 Intake & Output 02/01/24 02/02/24 02/02/24 18:59 06:59 18:59 Output Total 700 600 Balance -700 -600 Output: Urine 700 600 Other: Voiding Method Indwelling Catheter Indwelling Catheter Indwelling Catheter # Voids 1 # Bowel Movements 1 1 - Exam GENERAL DESCRIPTION: An elderly female lying in bed in no distress RESPIRATORY SYSTEM: Unlabored breathing , decreased breath sounds at bases HEART: S1 S2 regular rate and rhythm , ABDOMEN: Soft , no tenderness EXTREMITIES: No edema feet - Labs CBC & Chem 7: 02/03/24 06:15 02/03/24 06:15 Labs: Abnormal Lab Results - Last 24 Hours (Table) 02/02/24 02/02/24 Range/Units 04:13 04:13 WBC 13.0 H (3.8-10.6) k/uL RBC 2.81 L (3.80-5.40) m/uL Hgb 8.3 L (11.4-16.0) gm/dL Hct 26.4 L (34.0-46.0) % Neutrophils # 10.1 H (1.3-7.7) k/uL Creatinine 2.0 H (0.6-1.5) mg/dL Est GFR (CKD-EPI) 27 L (>=60) BUN/Creatinine Ratio 11.75 L (12.00-20.00) Ratio Calcium 7.8 L (8.7-10.3) mg/dL Microbiology - Last 24 Hours (Table) 01/30/24 08:28 Blood Culture - Preliminary Blood Assessment and Plan (1) E. coli UTI Current Visit: Yes Status: Acute Code(s): N39.0 - URINARY TRACT INFECTION, SITE NOT SPECIFIED; B96.20 - UNSP ESCHERICHIA COLI THE CAUSE OF DISEASES CLASSD [facility] SNOMED Code(s): 236495950 (2) E coli bacteremia Current Visit: Yes Status: Acute Code(s): R78.81 - BACTEREMIA; B96.20 - UNSP ESCHERICHIA COLI THE CAUSE OF DISEASES CLASSD [facility] SNOMED Code(s): 378259940169 (3) Leukocytosis Current Visit: Yes Status: Acute Priority: Medium Code(s): D72.829 - ELEVATED WHITE BLOOD CELL COUNT, UNSPECIFIED SNOMED Code(s): 779281323 Plan: 1patient admitted to hospital initially with sepsis secondary to complicated UTI in this patient who did have a severe pelvic floor prolapse with evidence of severe right and moderate left hydronephrosis and E. coli UTI as well as bacteremia with some resistant pattern 2-patient white count is trending down and repeat blood culture has been negative so far patient to continue with Rocephin while inpatient Dictation was produced using [employer] dictation software. please excuse any grammatical, word or spelling errors. Time with Patient: Less than 30
--- NOTE | 2024-02-03 18:59 | P.PN ---
Subjective Progress Note Date: 02/03/24 Principal diagnosis: Reason for follow-up is complicated UTI and bacteremia Patient is a 68-year-old female with a past medical history significant for hypertension hyperlipidemia presenting to the hospital for evaluation of weakness dizziness patient did have evidence of complicated UTI with CT showing severe pelvic floor prolapse severe right and moderate left hydr onephrosis patient did have blood and urine culture positive for E. coli. On today's evaluation that is 02/03/2024,the patient remains to be afebrile, patient is on room air not requiring supplemental oxygen and denies any shortness of breath no chest pain or cough.Patient denies having any nausea or vomiting, no abdominal pain and no diarrhea has been reported. Patient white count is 13,000 same as yesterday creatinine is 2.0 Objective - Vital Signs Vital signs: Vital Signs Temp 98.4 F 02/03/24 11:38 Pulse 77 02/03/24 15:42 Resp 18 02/03/24 15:42 BP 151/76 02/03/24 15:42 Pulse Ox 96 02/03/24 11:38 FiO2 Intake & Output 02/02/24 02/03/24 02/03/24 18:59 06:59 18:59 Output Total 007 226 7198 Balance -700 -800 -1400 Output: Urine 425 686 7446 Other: Voiding Method Indwelling Catheter Indwelling Catheter Indwelling Catheter # Voids 1 # Bowel Movements 1 2 - Exam GENERAL DESCRIPTION: An elderly female lying in bed in no distress RESPIRATORY SYSTEM: Unlabored breathing , decreased breath sounds at bases HEART: S1 S2 regular rate and rhythm , ABDOMEN: Soft , no tenderness EXTREMITIES: No edema feet - Labs CBC & Chem 7: 02/03/24 06:15 02/03/24 06:15 Labs: Abnormal Lab Results - Last 24 Hours (Table) 02/02/24 02/03/24 02/03/24 Range/Units 04:13 06:15 06:15 WBC 13.00 H (4.50-10.00) X 10*3/uL RBC 2.67 L (4.10-5.20) X 10*6/uL Hgb 7.9 L (12.0-15.0) g/dL Hct 25.0 L (37.2-46.3) % MCHC 31.6 L (32.0-37.0) g/dL Immature Gran # 0.36 H (0.00-0.04) X 10*3/uL Neutrophils # 9.76 H (1.80-7.70) X 10*3/uL Creatinine 2.0 H (0.6-1.5) mg/dL Est GFR (CKD-EPI) 27 L (>=60) BUN/Creatinine Ratio 10.10 L (12.00-20.00) Ratio Calcium 7.8 L (8.7-10.3) mg/dL Iron 25 L (50-170) UG/DL % Saturation 10.25 L (12.00-45.00) Transferrin 174.0 L (204.0-354.0) mg/dL Ferritin 494.0 H (10.0-291.0) ng/mL Microbiology - Last 24 Hours (Table) 01/30/24 08:28 Blood Culture - Preliminary Blood Assessment and Plan (1) E. coli UTI Current Visit: Yes Status: Acute Code(s): N39.0 - URINARY TRACT INFECTION, SITE NOT SPECIFIED; B96.20 - UNSP ESCHERICHIA COLI THE CAUSE OF DISEASES CLASSD [facility] SNOMED Code(s): 407314742 (2) E coli bacteremia Current Visit: Yes Status: Acute Code(s): R78.81 - BACTEREMIA; B96.20 - UNSP ESCHERICHIA COLI THE CAUSE OF DISEASES CLASSD [facility] SNOMED Code(s): 247913870955 (3) Leukocytosis Current Visit: Yes Status: Acute Priority: Medium Code(s): D72.829 - ELEVATED WHITE BLOOD CELL COUNT, UNSPECIFIED SNOMED Code(s): 202735327 Plan: 1patient admitted to hospital initially with sepsis secondary to complicated UTI in this patient who did have a severe pelvic floor prolapse with evidence of severe right and moderate left hydronephrosis and E. coli UTI as well as bacteremia with some resistant pattern 2-patient white count is down to 13,000, blood culture repeat has been negative so far patient is on Rocephin will be able to finish therapy with oral Ceftin x 10 days on discharge Dictation was produced using [employer] software. please excuse any grammatical, word or spelling errors. Time with Patient: Less than 30
[2024-02-03] MEDS: ONDANSETRON 4 MG/2 ML VIAL IVP PRN (19:49)
[2024-02-04 08:42] LABS: BUN/Creat Ratio 10.27 Ratio (12.00-20.00); Blood Urea Nitrogen 15.4 mg/dL (9.0-27.0); Calcium 8.2 mg/dL (8.7-10.3); Carbon Dioxide 26.6 mmol/L (21.6-31.8); Chloride 109 mmol/L (96-109); Glucose 86 mg/dL (70-110); Magnesium 1.7 mg/dL (1.5-2.4); Potassium 4.3 mmol/L (3.5-5.5); Sodium 144 mmol/L (135-145)
--- NOTE | 2024-02-04 11:00 | P.PN ---
Subjective Patient is seen in follow-up for acute kidney injury. Renal function improved. Nonoliguric. Receiving normal saline at 50 cc an hour. Oral intake fair. Hemodynamically stable. Vital signs are stable. General: No acute distress. HEENT: Head exam is unremarkable. LUNGS: No audible rhonchi or wheezes. HEART: Rate and Rhythm are regular. ABDOMEN: Nontender. EXTREMITITES: Trace edema. Objective - Vital Signs Vital signs: Vital Signs Temp 98.7 F 02/04/24 07:02 Pulse 93 02/04/24 07:07 Resp 16 02/04/24 07:02 BP 127/68 02/04/24 07:07 Pulse Ox 95 02/04/24 07:07 FiO2 Intake & Output 02/03/24 02/04/24 02/04/24 18:59 06:59 18:59 Intake Total 400 Output Total 1400 1800 Balance -1400 -1400 Intake: Intake, IV Titration 400 Amount Sodium Chloride 0.9% 1, 400 000 ml @ 50 mls/hr IV . Q20H [facility] Rx#:[id number] Output: Urine 1400 1800 Other: Voiding Method Indwelling Catheter Indwelling Catheter Indwelling Catheter # Bowel Movements 2 1 - Labs CBC & Chem 7: 02/03/24 06:15 02/04/24 06:10 Labs: Abnormal Lab Results - Last 24 Hours (Table) 02/04/24 Range/Units 06:10 Est GFR (CKD-EPI) 38 L (>=60) BUN/Creatinine Ratio 10.27 L (12.00-20.00) Ratio Calcium 8.2 L (8.7-10.3) mg/dL Assessment and Plan Plan: Assessment: 1. Acute kidney injury secondary to obstructive uropathy and ATN from severe sepsis. Creatinine peaked at 4.5 at this admission and was down to 1.15 yesterday - then started worsening with creatinine up to 2.6 February 01, 2024 -1.5 today. Unknown baseline renal function. 2. Bilateral hydronephrosis with prolapsed bladder. Has Guzman catheter. Urology following. 3. Metabolic acidosis secondary to acute acute kidney injury and GI losses status post bicarb drip. Improved. 4. Hypokalemia from poor intake and intracellular shifting from IV bicarb. Improved. 5. Edema. Status post IV Lasix this admission. Improved. 6. Severe sepsis secondary to E. coli bacteremia and UTI on antibiotics. ID following. Plan: Encouraged oral intake. Hep-Lock IV fluids. Maintain Guzman catheter. Hold amlodipine for systolic blood pressure less than 120. Continue to monitor renal function and urine output. Follow-up outpatient 1 to 2 weeks postdischarge.
[2024-02-04 11:49] LABS: Basophils # (A) 0.1 k/uL (0-0.2); Basophils % (A) 1 %; Eosinophils # (A) 0.2 k/uL (0-0.7); Eosinophils % (A) 2 %; HCT 27.2 % (34.0-46.0); HGB 8.6 gm/dL (11.4-16.0); Hypochromasia Slight; Lymphocytes # (A) 1.5 k/uL (1.0-4.8); Lymphocytes % (A) 13 %; MCH 30.3 pg (25.0-35.0); MCHC 31.8 g/dL (31.0-37.0); MCV 95.3 fL (80.0-100.0); Mean Platelet Volume 10.4; Monocytes # (A) 0.7 k/uL (0-1.0); Monocytes % (A) 6 %; Neutrophils # (A) 8.5 k/uL (1.3-7.7); Neutrophils % (A) 76 %; Platelet Count 411 k/uL (150-450); RBC 2.85 m/uL (3.80-5.40); RDW 13.9 % (11.5-15.5); WBC 11.2 k/uL (3.8-10.6)
--- NOTE | 2024-02-04 12:47 | P.DS ---
Providers Date of admission: 01/25/24 18:33 Expected date of discharge: 02/04/24 Attending physician: Cj Conroy MD Consults: 01/25/24 18:33 Consult Physician Urgent Consulting Provider: Claude Winn Consult Reason/Comments: sary Do you want consulting provider notified?: Yes 01/26/24 03:12 Consult Physician Routine Consulting Provider: Devon Wooten Consult Reason/Comments: Significant leukocytosis Do you want consulting provider notified?: Yes 01/26/24 11:36 Consult Physician Routine Consulting Provider: Santos Jimenez Consult Reason/Comments: hydronephrosis Do you want consulting provider notified?: Yes 01/27/24 09:37 Consult Physician Urgent Consulting Provider: Elodia Song Consult Reason/Comments: vaginal prolapse, urinary retention, hydronephrosis Do you want consulting provider notified?: Yes 01/30/24 09:14 Consult Physician Routine Consulting Provider: Jermaine Reeves Consult Reason/Comments: bacteremia Do you want consulting provider notified?: Yes Primary care physician: Chucky Fernandez DO Hospital Course: Discharge Diagnosis: E. Coli UTI with E. coli bacteremia associated with sepsis Leukocytosis Acute kidney injury Bilateral moderate hydronephrosis Bladder and uterine prolapse Uterine bleeding Acute blood loss anemia Transaminitis Supine Hypertension with Orthostatic hypotension Elevated troponin, likely secondary to acute kidney injury Metabolic acidosis Thrombocytopenia Hospital Course: Patient is a 68-year-old female with hypertension, dyslipidemia, and uterus/basilar prolapse who presented to the emergency department with 3 to 4 days of dizziness. Patient had had a knee surgery 3 weeks ago and since that time has had some diarrhea and poor oral intake. On arrival to the ER she was tachycardic with a pulse of 101 and the remainder of her vital signs are within normal limits. Initial laboratory analysis was remarkable for white blood cell count of 47.4, sodium 133, carbon dioxide 17, BUN 56, creatinine 3.24, lactic acid 2.7, total bilirubin 1.7, AST 50, ALT 54, and troponin 0.052. She underwent a CT head which showed acute sinusitis of the maxillary sinus. Patient was admitted for orthostatic hypotension and leukocytosis. She was started on Rocephin in the emergency department. Oncology was consulted to rule out leukemia. She was also started on IV fluids, her lisinopril was held, ne phrology was consulted due to her acute kidney injury. Due to her elevated troponin cardiology was consulted. Troponins were trended and flat not consistent with acute coronary syndrome. Cardiology recommended continuing her Lipitor. Echocardiogram was performed which showed ejection fraction 60 to 65% without any wall motion abnormalities. She underwent renal ultrasound which showed moderate right hydronephrosis with mild to moderate left hydronephrosis. Normal gallbladder ultrasound which showed continued moderate hydronephrosis with no gallstones or ductal dilatation. Nephrology recommended urology consult and IV fluids as well as Guzman catheter placement. She was seen by oncology who felt that her leukocytosis is likely secondary to infection and leukemoid reaction. C. difficile was negative. She came back with an E. coli bacteremia in 2 out of 2 cultures. Urinalysis was consistent with urinary tract infection. Urology recommended gynecology consult. She underwent a CT abdomen and pelvis which demonstrated severe pelvic floor prolapse with moderate to severe right and moderate left hydronephrosis, left adrenal adenoma. Seen by CANDY COOKER HELPER who recommends outpatient prolpase treatment. Nephrology monitoring fluid status. Maintained on Rocephin. Repeat Bcx negative. Renal function improved. Hemoglobin also uptrending. Patient being discharged on oral Ceftin for 10 day s. She no longer has lightheadedness upon getting out of the bed. Orthostatics still positive. Recommended to get up very slowly out of the bed. Follow-up with PCP, gynecology, urology, and nephrology. Patient will be discharged home with follow-up care and Guzman catheter. Follow-up with Patient seen and examined at bedside. Vital signs reviewed and stable. General: Nontoxic, no distress, appears at stated age Derm: Warm, dry Head: Atraumatic, normocephalic, symmetric Eyes: EOMI, no lid lag, anicteric sclera Mouth: No lip lesion, mucus membranes moist Cardiovascular: S1S2 reg, systolic murmur Lungs: CTA bilateral, no rhonchi, no rales, no accessory muscle use, supplemental oxygen Ext: No gross muscle atrophy, no edema, no contractures Neuro: no focal neuro deficits Psych: Alert, oriented, appropriate affect A total of 33 minutes of time were spent preparing this complex discharge summary. Patient was discharged on 02/04/2024 at 1211. Patient Condition at Discharge: Stable Plan - Discharge Summary Discharge Rx Participant: No New Discharge Prescriptions: New amLODIPine [Norvasc] 5 mg PO DAILY #60 tab cefUROXime axetiL [Ceftin] 500 mg PO BID 10 Days #20 tab Continue Atorvastatin [Lipitor] 40 mg PO DAILY Aspirin EC [Ecotrin Low Dose] 81 mg PO DAILY Discontinued lisinopriL [Prinivil] 10 mg PO DAILY Discharge Medication List Aspirin EC [Ecotrin Low Dose] 81 mg PO DAILY 01/25/24 [History] Atorvastatin [Lipitor] 40 mg PO DAILY 01/25/24 [History] amLODIPine [Norvasc] 5 mg PO DAILY #60 tab 02/04/24 [Rx] cefUROXime axetiL [Ceftin] 500 mg PO BID 10 Days #20 tab 02/04/24 [Rx] Follow up Appointment(s)/Referral(s): Chucky Fernandez DO [Primary Care Provider] - 1-2 days Elodia Song DO [Doctor of Osteopathic Medicine] - 1 Week (The office was not available to take calls please call and schedule your follow up appointment after noon.) [facility] [place],[facility] [NON-STAFF] - 1 Week Claude Winn DO [STAFF PHYSICIAN] - 1 Week (The office is closed for lunch p lease call and make follow up appointment.) Santos Jimenez MD [STAFF PHYSICIAN] - 1 Week (The office is closed for lunch please call and make follow up appointment.) Patient Instructions/Handouts: Abnormal (Dysfunctional) Uterine Bleeding (DC), Acute Kidney Injury (DC), Urinary Tract Infection in Women (DC), Syncope (DC), Guzman Catheter Placement and Care (DC), Uterine Prolapse (DC) Activity/Diet/Wound Care/Special Instructions: Please get up slowly out of the bed to avoid lightheadedness and falls. Follow up with nephrology, concrete engineering technician, urology, and PCP. Discharge Disposition: HOME WITH HOME HEALTH SERVICES
[2024-02-04 12:52] VITALS: BP 118/72; PULSE 80; RESP 15; TEMP 98.2
== END 2024-02-04 15:45 | disposition home health service (06) | DRG 871 ==
LOC: EC 14:40 → 3SCARD 18:33 → 5NMEDONC 01-30 00:07
PROVIDERS: ADMIT Student in an Organized Health Care Education/Training Program; ATTEND Student in an Organized Health Care Education/Training Program
DX: A41.51 Sepsis due to Escherichia coli [E. coli] (principal); N17.0 Acute kidney failure with tubular necrosis; D62 Acute posthemorrhagic anemia; N13.6 Pyonephrosis; N13.8 Other obstructive and reflux uropathy; D35.02 Benign neoplasm of left adrenal gland; D69.59 Other secondary thrombocytopenia; D72.823 Leukemoid reaction; E78.5 Hyperlipidemia, unspecified; R65.20 Severe sepsis without septic shock; E86.0 Dehydration; R74.01 Elevation of levels of liver transaminase levels; R01.1 Cardiac murmur, unspecified; R33.9 Retention of urine, unspecified; R19.7 Diarrhea, unspecified; R79.89 Other specified abnormal findings of blood chemistry; E87.6 Hypokalemia; I11.0 Hypertensive heart disease with heart failure; I50.9 Heart failure, unspecified; I95.1 Orthostatic hypotension; J01.00 Acute maxillary sinusitis, unspecified; N28.1 Cyst of kidney, acquired; N81.3 Complete uterovaginal prolapse; N81.89 Other female genital prolapse; N93.9 Abnormal uterine and vaginal bleeding, unspecified; Z96.652 Presence of left artificial knee joint; Z79.82 Long term (current) use of aspirin; Z79.899 Other long term (current) drug therapy; Z87.891 Personal history of nicotine dependence
CPT/HCPCS: 36415; 51702; 70450; 71046; 74176; 76705; 76770; 80048; 80053; 80076; 81001; 82150; 82272; 82607; 82728; 82746; 82784; 83540; 83550; 83605; 83690; 83735; 83883; 83921; 84165; 84484; 85025; 85027; 85610; 85730; 86334; 87040; 87077; 87086; 87186; 87324; 87636; 93005; 93306; 96361; 96365; 96366; 96372; 96375; 99291

== ENCOUNTER 2024-02-19 10:00 | Emergency (ER) | payer MEDICARE ==
--- NOTE | 2024-02-19 10:21 | ED ---
Female Urogenital HPI - General Chief complaint: Urogenital Stated complaint: cath pain and issues Time Seen by Provider: 02/19/24 10:19 Source: patient, RN notes reviewed Mode of arrival: ambulatory Limitations: no limitations - History of Present Illness Initial comments: 68-year-old female presented to the ER with a chief complaint of urinary cathete r pain. Patient states she was recently admitted for a UTI and Guzman catheter was placed at that time. She has had an indwelling catheter for 3 weeks and follows up with urology tomorrow. She states for the past 24 hours she has been having extreme pain with urination and noticing no urine in her bag. She states the urine will leak around the tube. She does report she noticed her urine appears cloudy 2 days ago. Admits to feeling feverish recently. She denies any hematuria, nausea/ vomiting, abdominal pain, chest pain, shortness of breath, or peripheral edema. - Related Data Home Medications Medication Instructions Recorded Confirmed Aspirin EC [Ecotrin Low Dose] 81 mg PO DAILY 01/25/24 01/25/24 Atorvastatin [Lipitor] 40 mg PO DAILY 01/25/24 01/25/24 Previous Rx's Medication Instructions Recorded amLODIPine [Norvasc] 5 mg PO DAILY #60 tab 02/04/24 cefUROXime axetiL [Ceftin] 500 mg PO BID 10 Days #20 tab 02/04/24 Cephalexin [Keflex] 500 mg PO Q6HR 10 Days #40 cap 02/19/24 Allergies Allergy/AdvReac Type Severity Reaction Status Date / Time No Known Allergies Allergy Verified 02/19/24 10:04 Review of Systems ROS Statement: Those systems with pertinent positive or pertinent negative responses have been documented in the HPI. ROS Other: All systems not noted in ROS Statement are negative. Past Medical History Past Medical History: Hyperlipidemia, Hypertension History of Any Multi-Drug Resistant Organisms: None Reported Past Surgical History: Orthopedic Surgery Additional Past Surgical History / Comment(s): left knee replacement Past Anesthesia/Blood Transfusion Reactions: No Reported Reaction Past Psychological History: No Psychological Hx Reported Smoking Status: Former smoker Past Alcohol Use History: None Reported Past Drug Use History: None Reported - Past Family History Mother Family Medical History: Cancer Additional Family Medical History / Comment(s): liver CA Father Family Medical History: Cancer Additional Family Medical History / Comment(s): stomach CA General Exam Limitations: no limitations General appearance: alert, in no apparent distress Respiratory exam: Present: normal lung sounds bilaterally. Absent: respiratory distress, wheezes, rales, rhonchi, stridor Cardiovascular Exam: Present: regular rate, normal rhythm, normal heart sounds. Absent: systolic murmur, diastolic murmur, rubs, gallop, clicks GI/Abdominal exam: Present: soft, normal bowel sounds. Absent: distended, tenderness, guarding, rebound, rigid Neurological exam: Present: alert, oriented X3, CN II-XII intact Psychiatric exam: Present: normal affect, normal mood Course Vital Signs 02/19/24 02/19/24 10:01 12:02 Temperature 98 F 98.7 F Pulse Rate 84 83 Respiratory 18 18 Rate Blood Pressure 161/81 145/82 O2 Sat by Pulse 98 97 Oximetry Medical Decision Making - Medical Decision Making Was pt. sent in by a medical professional or institution (, PA, TECHNICAL IMPLEMENTATION LEAD, urgent care, hospital, or fdc...) When possible be specific @ -No Did you speak to anyone other than the patient for history (EMS, parent, family, police, friend...)? What history was obtained from this source @ -No Did you review nursing and triage notes (agree or disagree)? Why? @ -I reviewed and agree with nursing and triage notes Were old charts reviewed (outside hosp., previous admission, EMS record, old EKG, old radiological studies, urgent care reports/EKG's, fdc records)? Report findings @ -No old charts were reviewed Differential Diagnosis (chest pain, altered mental status, abdominal pain women, abdominal pain men, vaginal bleeding, weakness, fever, dyspnea, syncope, headache, dizziness, GI bleed, back pain, seizure, CVA, palpatations, mental health, musculoskeletal)? @ -UTI, Guzman catheter malfunction, Mary Lou vaginosis this list is not meant to be all-inclusive EKG interpreted by me (3pts min.). @ -None X-rays interpreted by me (1pt min.). @ -None done CT interpreted by me (1pt min.). @ -None done U/S interpreted by me (1pt. min.). @ -None done What testing was considered but not performed or refused? (CT, X-rays, U/S, labs)? Why? @ -None What meds were considered but not given or refused? Why? @ -None Did you discuss the management of the patient with other professionals (professionals i.e. , PA, TECHNICAL IMPLEMENTATION LEAD, lab, RT, psych nurse, social director, forestry tree pruner, teacher, special service officer, community case manager)? Give summary @ -No Was smoking cessation discussed for >3mins.? @ -No Was critical care preformed (if so, how long)? @ -No Were there social determinants of health that impacted care today? How? (Homelessness, low income, unemployed, alcoholism, drug addiction, transportation, low edu. Level, literacy, decrease access to med. care, halfway, rehab)? @ -No Was there de-escalation of care discussed even if they declined (Discuss DNR or withdrawal of care, Hospice)? DNR status @ -No What co-morbidities impacted this encounter? (DM, HTN, Smoking, COPD, CAD, Cancer, CVA, ARF, Chemo, Hep., AIDS, mental health diagnosis, sleep apnea, morbid obesity)? @ -Indwelling catheter Was patient admitted / discharged? Hospital course, mention meds given and route, prescriptions, significant lab abnormalities, going to OR and other pertinent info. @ -Discharge. 68-year-old female presented to the ER with a chief complaint of painful urination and Guzman catheter complication. History and physical exam completed. Vitals stable. Patient in no signs of acute distress and nontoxic- appearing. No focal abdominal tenderness. Guzman catheter removed and replaced without complication. Urinalysis obtained and significant for infection with positive nitrates and white blood cells. On reevaluation, patient resting comfortably in exam room. No signs of acute distress. Urinary catheter bag draining appropriately. Results discussed with patient, all questions answered. Patient received IM Rocephin prior to discharge and Keflex was prescribed. Advised follow-up with urology as scheduled tomorrow. Return parameters discussed. Patient discharged stable condition. Patient verbally expressed understanding and agreement with care plan. Case discussed with ED attending, Dr. Mccabe. Undiagnosed new problem with uncertain prognosis? @ -No Drug Therapy requiring intensive monitoring for toxicity (Heparin, Nitro, Insulin, Cardizem)? @ -No Were any procedures done? @ -No Diagnosis/symptom? @ -UTI/ Guzman catheter complication Acute, or Chronic, or Acute on Chronic? @ -Acute Uncomplicated (without systemic symptoms) or Complicated (systemic symptoms)? @ -Uncomplicated Side effects of treatment? @ -No Exacerbation, Progression, or Severe Exacerbation? @ -No Poses a threat to life or bodily function? How? (Chest pain, USA, PA, pneumonia, PE, COPD, DKA, ARF, appy, cholecystitis, CVA, Diverticulitis, Homicidal, Suicidal, threat to staff... and all critical care pts) @ -Low likelihood - Lab Data Lab Results 02/19/24 Range/Units 10:43 Urine Color Colorless Urine Appearance Turbid H (Clear) Urine pH 6.0 (5.0-8.0) Ur Specific Daniel 1.011 (1.001-1.035) Urine Protein 1+ H (Negative) Urine Glucose (UA) Negative (Negative) Urine Ketones Negative (Negative) Urine Blood Small H (Negative) Urine Nitrite Positive H (Negative) Urine Bilirubin Negative (Negative) Urine Urobilinogen <2.0 (<2.0) mg/dL Ur Leukocyte Esterase Large H (Negative) Urine RBC 6 H (0-5) /hpf Urine WBC >182 H (0-5) /hpf Urine WBC Clumps Many H (None) /hpf Ur Squamous Epith Cells 2 (0-4) /hpf Urine Bacteria Many H (None) /hpf Urine Mucus Many H (None) /hpf Disposition Clinical Impression: Urinary tract infection, Urinary catheter complication Disposition: HOME SELF-CARE Condition: Stable Instructions (If sedation given, give patient instructions): Urinary Tract Infection in Women (ED) Additional Instructions: Complete full course of Keflex. Follow-up with urology tomorrow as scheduled. Return to the ER for any new or worsening symptoms. Prescriptions: Cephalexin [Keflex] 500 mg PO Q6HR 10 Days #40 cap Is patient prescribed a controlled substance at d/c from ED?: No Referrals: Chucky Fernandez DO [Primary Care Provider] - 1-2 days Time of Disposition: 12:09
[2024-02-19 10:38] VITALS: RESP 18
[2024-02-19 11:18] LABS: Appearance,Urine Turbid (Clear); Bacteria,Urine Many /hpf; Bilirubin,Urine Negative (Negative); Blood,Urine Small (Negative); Color,Urine Colorless; Glucose,Urine (UA) Negative (Negative); Ketones,Urine Negative (Negative); Leukocyte Esterase,Urine Large (Negative); Mucus,Urine Many /hpf; Nitrite,Urine Positive (Negative); Protein,Urine 1+ (Negative); RBC,Urine 6 /hpf (0-5); Specific Gravity,Urine 1.011 (1.001-1.035); Squamous Epithelial Cell,Urine 2 /hpf (0-4); Urobilinogen,Urine <2.0 mg/dL (<2.0); WBC,Urine >182 /hpf (0-5)
[2024-02-19] MEDS: cefTRIAXone 1,000 MG VIAL (IM USE) IM STA (12:23)
[2024-02-19 12:34] VITALS: BP 141/81; PULSE 81; TEMP 98.6
== END 2024-02-19 14:00 | disposition home or self-care (01) ==
LOC: EC 10:00
DX: N39.0 Urinary tract infection, site not specified (principal); T83.098A Other mechanical complication of other urinary catheter, initial encounter; Z87.891 Personal history of nicotine dependence
CPT/HCPCS: 81001; 87086; 99283; 96372; 51702; J0696